=== PATIENT | male | born 1955 | race Caucasian/White ===

== ENCOUNTER 2021-11-25 08:16 | Inpatient (IN) | payer MEDICARE, SELFPAY ==
--- NOTE | ~2021-11-25 | XR_ITS ---
EXAMINATION: XR LUMBOSACRAL SPINE CLINICAL INFORMATION: New onset low back pain. COMPARISON: No similar priors. TECHNIQUE: Three views of the lumbosacral spine. FINDINGS: There are 5 nonrib-bearing lumbar-type vertebral bodies without evidence of acute compression deformities or subluxations. There are mild to moderate degenerative changes in the lower lumbar spine with disc space narrowing, anterior osteophytes and bilateral facet arthropathy leading to some degree of neural foraminal encroachment and central canal stenosis from L4 through S1. Atherosclerotic disease of the abdominal aorta which measures up to 3.4 cm in maximum sagittal dimensions. Nonobstructive bowel gas pattern. Multiple surgical tacks overlie the left abdomen. XR/XR lumbar spine 2-3V IMPRESSION: No acute fractures or malalignment. Mild to moderate lumbar spondylosis which could be further assessed with a nonemergent MRI of the lumbar spine if indicated. The abdominal aorta measures up to 3.3 cm in diameter. In an asymptomatic patient a surveillance image in 3 years is recommended.
--- NOTE | ~2021-11-25 | XR_ITS ---
EXAMINATION: XR CHEST CLINICAL INFORMATION: Status post left thoracentesis COMPARISON: November 25, 2021 TECHNIQUE: AP portable view of the chest was obtained. FINDINGS: There has been some improvement in left base disease but with some residual disease still seen. No pneumothorax is evident. Heart normal size. No evidence of pulmonary edema. XR/XR chest 1V IMPRESSION: Status post left thoracentesis with less fluid identified but left lower lobe disease remaining.
--- NOTE | ~2021-11-25 | XR_ITS ---
EXAMINATION: XR CHEST CLINICAL INFORMATION: Dyspnea COMPARISON: CT angiography chest 10/04/2017, chest radiograph 10/04/2017 TECHNIQUE: 2 views of the chest were obtained. FINDINGS: Moderate blunting of the left costophrenic sulcus is noted. Minimal blunting of the right costophrenic sulcus is visualized. No pneumothoraces identified. Mild-moderate attenuation of the upper lung zone pulmonary parenchyma. 1.5 cm irregular shaped density in projection with the right upper pulmonary lobe and superior margin of the anterior segment of the right third rib without a correlate on the comparison studies. XR/XR chest 2V IMPRESSION: *Moderate left pleural effusion. *Possible trace right pleural effusion. *Irregular shape 1.5 cm density projected over the right upper pulmonary lobe which could represent focal inflammatory changes or neoplasm. Recommend scrutiny to this region on short-term follow-up imaging. ([place] And[place] image saved).
--- NOTE | ~2021-11-25 | CT_ITS ---
EXAMINATION: CT ANGIOGRAM OF THE CHEST WITH AND WITHOUT CONTRAST (CT PULMONARY ANGIOGRAM FOR PE) CLINICAL INFORMATION: Reason for Exam SOB, chest pain, nodule on Xray COMPARISON: October 04, 2017 TECHNIQUE: Prior to contrast administration, noncontrast localization images were obtained. Subsequently, multidetector volumetric imaging was performed from the thoracic inlet to below the diaphragms following the administration of 80 mL Omnipaque 350 intravenous contrast. No contrast reaction reported Sagittal, coronal, and MIP oblique sagittal reformatted images were obtained on the CT workstation, uploaded to PACS, and reviewed. This CT examination was performed using dose optimization techniques as appropriate, variously including the following: *Automated exposure control *Adjustment of mA and/or kV according to patient size (this includes techniques or standardized protocols for targeted exams where dose is matched to indication/reason for exam; i.e. extremities or head) *Use of iterative reconstruction technique Total exam dose-length product 284 mGy-cm FINDINGS: QUALITY OF STUDY/CONTRAST BOLUS: Satisfactory. PULMONARY ARTERIES: No central or segmental pulmonary emboli. THORACIC AORTA: No thoracic aortic dissection is identified the as ascending thoracic aorta is prominent at 4.2 cm in diameter. LUNG: There are changes of centrilobular and paraseptal emphysema in the upper lobes. There is bilateral airspace disease left greater than right which may be related to atelectasis. These findings are new compared to previous study of October 04, 2017. There is some loss of left lung volume. There is some mild diffuse bronchial wall thickening present without evidence of bronchiectasis. No suspicious lung masses are identified. PLEURA: There is a small right pleural effusion and a small to moderate left pleural effusion. These are new since previous study. MEDIASTINUM: Patient has developed moderate pericardial effusion measuring approximately 2 cm in diameter along the anterior right lateral aspects. Heart normal size.. There is a 1.1 cm precarinal lymph node and a 1.1 cm short axis subcarinal lymph node with no other mediastinal or hilar lymphadenopathy appreciated. No evidence of septal bowing or right heart strain. CHEST WALL/AXILLA: No axillary or internal mammary lymphadenopathy. OSSEOUS STRUCTURES: No acute or suspicious osseous abnormality. There are some old healed left-sided rib fractures. UPPER ABDOMEN: Unremarkable. No reflux of contrast into the hepatic veins to suggest elevated right heart pressures. CT/CT angio chest PE protocol IMPRESSION: No evidence of acute pulmonary artery embolus. Multiple prominent ascending thoracic aorta at 4.2 cm in diameter without dissection. Development of a moderate-sized pericardial effusion. Small right pleural effusion and small to moderate left pleural effusion with bibasilar parenchymal disease. VTE: negative
--- NOTE | ~2021-11-25 | US_ITS ---
EXAMINATION: ULTRASOUND-GUIDED LEFT THORACENTESIS CLINICAL INFORMATION: Left pleural effusion COMPARISON: CT angiography of November 25, 2021 TECHNIQUE: Ultrasound-guided left thoracentesis FINDINGS: Informed consent was obtained from the patient prior to the procedure. During this process, the procedure and potential alternatives were explained, along with the intended outcome and benefits. The risks of the procedure, as well as the risk of not doing the procedure, were discussed. The patient was given the opportunity to ask questions regarding the procedure and appeared competent to make medical decisions. A signed consent form which documents this discussion was placed in the medical record. Using sterile technique and ultrasound guidance a 5 [place] Yueh needle was directed using trocar technique into the left pleural space. A total of 600 mL of clear yellow fluid was removed without difficulty. Patient tolerated procedure without abnormality. US/US thoracentesis IMPRESSION: Left thoracentesis with removal of 600 mL of clear mary fluid.
--- NOTE | 2021-11-25 08:19 | ECG_ITS ---
Test Reason : SOB Blood Pressure : / mmHG Vent. Rate : 102 BPM Atrial Rate : 102 BPM P-R Int : 142 ms QRS Dur : 084 ms QT Int : 350 ms P-R-T Axes : 074 038 071 degrees QTc Int : 456 ms Sinus tachycardia Low voltage Nonspecific ST changes Borderline ECG When compared with ECG of 04-OCT-2017 08:14, Low voltage Referred By: Generic ED Physician Electronically Signed By:Jc Hernandez
[2021-11-25 08:29] VITALS: BP 154/92; PULSE 100; RESP 17; TEMP 37; O2SAT 95
[2021-11-25 10:47] LABS: Influenza A PCR NEGATIVE (Negative); Influenza B PCR NEGATIVE (Negative); Resp Syncy Virus RNA Qual PCR NEGATIVE (Negative); SARS COV2 PCR INHOUSE NEGATIVE (Negative)
[2021-11-25 11:24] VITALS: BP 127/78; PULSE 95; RESP 19; TEMP 36.6; O2SAT 96; BMI 29.3
--- NOTE | 2021-11-25 11:29 | ED_ITS ---
HPI - Chest Pain General Chief Complaint: Chest Pain Stated Complaint: Chest pain/SOB Time Seen by Provider: 11/25/21 08:27 Source: patient Mode of arrival: ambulatory Limitations: no limitations History of Present Illness HPI narrative: 66 year old male past medical history significant for hypertension, COPD and patient reports that this week he was told he had cancer by his clinic specialist, he tells me he does not know what kind he comes in today with complaints of chest pain and shortness of breath that awoke him from his sleep at 3:00 a.m this morning. Patient tells me that the chest pain is substernal, nonradiating, severe described as a stabbing sensation that is intermittent. He tells me that when the pain is severe, he gets associated nausea, and diaphoresis. Reports this has never happened to him before. Patient also tells me that he has been having increasing shortness of breath over the past week however, since this morning patient reports that has been worse than ever, he tells me he is unable to ambulate without feeling extremely short of breath and like he is going to pass out. He also reports intermittent night sweats, chills and fevers over the past month. Patient reports no cardiac history. He denies weight loss, abdominal pain, vomiting, constipation, diarrhea, weakness, dizziness, headache, vision changes. MD complaint: chest pain Pertinent past history: other (COPD) Onset (ago): hour(s) (8) Timing of current episode: episodic Prior episodes: No Onset: during rest and awoke with symptoms Pain location: substernal Pain radiation: none Severity: severe Pain scale (0-10): 10 Quality: sharp Relieving factors: nothing Exacerbating factors: nothing Context: other (? New cancer diagnosis by clinic specialist) Associated symptoms: nausea, diaphoresis and other (fevers/chills/night sweats) Treatment prior to arrival: none Related Data Home Medications Medication Instructions Recorded Confirmed acetaminophen 325 mg tablet 650 mg PO Q4H PRN 11/25/21 11/25/21 amlodipine 5 mg tablet 1 tab PO DAILY 11/25/21 11/25/21 hydrochlorothiazide 25 mg tablet 1 tab PO DAILY 11/25/21 11/25/21 ibuprofen 200 mg tablet 400 mg PO Q6H PRN 11/25/21 11/25/21 sumatriptan succinate 50 mg tablet 1 tab PO DAILY MRX1 PRN 11/25/21 11/25/21 trazodone 50 mg tablet 1 tab PO BEDTIME 11/25/21 11/25/21 umeclidinium 62.5 mcg-vilanterol 1 puff INHALATION DAILY 11/25/21 11/25/21 25 mcg/actuation powdr for inhalation (Anoro Ellipta) Allergies Allergy/AdvReac Type Severity Reaction Status Date / Time No Known Allergies Allergy Unverified 08/17/20 15:18 Review of Systems Review of Systems: Constitutional : No Weight loss, + Fever, + Chills, + Fatigue, + Malaise ENT/Mouth : No sore throat, No Rhinorrhea Eyes: No Eye Pain, No Swelling, No Redness Cardiovascular : + Chest Pain, + SOB, + Dyspnea on Exertion, + Orthopnea, No Edema, No Palpitations Respiratory : No Cough, No Sputum, No Wheezing Gastrointestinal : + Nausea, No Vomiting, No Diarrhea, No Constipation, No abdominal Pain, No Hematochezia, No Melena Genitourinary : No Dysuria, No Urinary Frequency, No Hematuria, Musculoskeletal : No joint pain, No Myalgias, No Joint Swelling Skin : No Skin Lesions, No rash Neuro : + Weakness, No Numbness, No Dizziness, No Headache Psych : No Anxiety/Panic, No Depression All other systems reviewed and are negative Yes all other systems are reviewed and are negative [facility] Past Medical History Attestation statement: The following information was validated with the patient. Source: old records reviewed and nursing notes reviewed Medical History COPD (chronic obstructive pulmonary disease) HTN (hypertension) Social History Social History Advance Directives: No Advance Directives Information Provided: Yes Physical Exam Vital Signs: Vital Signs: Last Vital Signs Temp 97.8 F 11/25/21 15:11 Pulse 92 11/25/21 15:11 Resp 21 H 11/25/21 15:11 BP 111/76 11/25/21 15:11 Pulse Ox 94 11/25/21 15:11 BMI result Body Mass Index 29.3 VSS Appearance: Alert.? Oriented X3.? +Patient appears uncomfortable with noted increased work of breathing, patient is noted to be diaphoretic. Head: Normocephalic, atraumatic, no step-offs or deformities Eyes: Pupils equal, round and reactive to light.? ENT: Pharynx normal.? Neck: Normal inspection.? Neck supple.? CVS: + regular rate, rapid rhythm, likely sinus tachycardia. Pulses normal.? Respiratory: + increased work of breathing + diminished lung sounds noted to bilateral lower lobes, worse on the left. Abdomen: Soft and nontender.? Skin: Skin warm and + diaphoretic.? +Palor noted .? Normal skin turgor.? Extremities: + bilateral 3+ pitting edema from the knee down calf ttp. 5/5 strength to bilateral upper and lower extremities Back: No midline tenderness, no C-spine tenderness, full range of motion, no CVA tenderness bilaterally Neuro: Oriented X 3.? No motor deficit.? No sensory deficit. Course Reevaluation(s) Reevaluation #1: Leukocytosis is noted on blood work, troponin 6.8 a 2nd troponin has been ordered for her to 45, BNP just mildly elevated 124. At this time based off patient's laboratory studies, and my physical examination infection is suspected(1257). Blood cultures and a lactic have been ordered. Patient will be started on antibiotics empirically ceftriaxone and azithromycin. I will hold on fluids at this time as patient appears to be fluid overloaded. Time: 12:57 Reevaluation #2: Patient's x-ray significant for bilateral pleural effusions, left greater than right. Also there is an irregularly-shaped density in the right upper pulmonary lobe. CTA negative for VTE/PE it shows a prominent ascending thoracic aorta, without dissection. There is a moderate size pericardial effusion. There is also a small right pleural effusion and a small to moderate left pleural effusion with bibasilar parenchymal disease. Time: 16:20 Reevaluation #3: At this time patient will be admitted to the hospitalist bartolome Montes. Time: 16:20 MDM - Chest Pain MDM Narrative Medical decision making narrative: 1152 66 yo M pmhx COPD, HTN, and rx diagnosis of some type of skin cancer presents to the ED with SOB worse with exertion, and substernal severe intermittent CP described as stabbing which awoke patient from sleep. Current daily smoker 2PPD. No cardiac history. Sleeps with 2L of oxygen via nasal cannula. On exam patient appears uncomfortable, pale, diaphoretic, with increased work of breathing. He is noted to have diminished lung sounds b/l worse on the left. He is noted to have a rapid regular rythem, likely sinus tachycardia. Noted to have 3+ pitting edema from the knee down b/l. No focal neuro deficits. Plan prior to my exam xray and EKG had been done At this time basic labs, trop, BNP, CTA of chest, IV, cardiac monitoring has been ordered at t his time. He will be put on 2L via nasal cannula for comfort. I will also give him ASA and lasix. Medical Records Data Attestation: I reviewed the patient's medical records. Lab Data Attestation: I reviewed the patient's lab results. Result diagrams: 11/25/21 12:41 11/25/21 12:11 Labs: Lab Results 11/25/21 11/25/21 11/25/21 Range/Units 10:01 11:48 11:48 WBC (4.8-10.8) X10*3/uL RBC (4.60-5.80) X10*6/uL Hgb (14.0-18.0) g/dl Hct (42.0-52.0) % MCV (80.0-98.0) fL MCH (27.0-33.0) pg MCHC (31.0-36.0) g/dl RDW (11.0-16.0) % Plt Count (160-400) X10*3/uL MPV (9.4-12.4) fL Immature Gran % (Auto) (0.0-0.4) % Neut % (Auto) (45-73) % Lymph % (Auto) (20-40) % [place] % (Auto) (2-11) % Eos % (Auto) (0-4) % Baso % (Auto) (0-2) % Lymph # (Auto) (1.2-4.9) X10*3/uL [place] # (Auto) (0.1-1.2) X10*3/uL Eos # (Auto) (0.0-0.4) X10*3/uL Baso # (Auto) (0.0-0.2) X10*3/uL Abs Immat Gran (auto) (0.00-0.03) X10*3/uL Absolute Neuts (auto) (2.0-8.3) x10*3/uL Absolute Nucleated RBC (0.0-0.012) X10*3/uL Nucleated RBC % (auto) (0.0-0.2) /100WBC Sodium (135-145) mmol/L Potassium (3.3-5.1) mmol/L Chloride (96-108) mmol/L Carbon Dioxide (22-29) mmol/L Anion Gap (12-20) BUN (9-16) mg/dL Creatinine (0.5-1.4) mg/dL Estim Creat Clear Calc Estimated GFR Random Glucose (60-115) mg/dL Lactic Acid (0.5-2.0) mmol/L Calcium (8.4-10.2) mg/dL Magnesium (1.6-2.6) mg/dL Total Bilirubin (0.0-1.0) mg/dL AST (5-37) U/L ALT (0-40) U/L Alkaline Phosphatase (39-117) U/L Troponin I High Sens 6.8 (<3.5-35.0) ng/L B-Natriuretic Peptide 124 H (<100) pg/mL Total Protein (6.5-8.0) g/dL Albumin (3.5-5.0) g/dL Urine Color Urine Appearance Urine pH (5.0-8.0) Ur Specific [place] (1.005-1.025) Urine Protein (NEG-TRACE) MG/DL Urine Glucose (UA) (NEG) MG/DL Urine Ketones (NEG) MG/DL Urine Blood (NEG) Urine Nitrite (NEG) Ur Leukocyte Esterase (NEG) Urine RBC (0) /HPF Urine WBC (0-4) /HPF Ur Squamous Epith Cells /LPF Urine Bacteria /LPF Urine Mucus /LPF Influenza Type A (PCR) NEGATIVE (Negative) Influenza Type B (PCR) NEGATIVE (Negative) RSV RNA Qual (PCR) NEGATIVE (Negative) SARS-CoV-2 RNA (RT-PCR) NEGATIVE (Negative) 11/25/21 11/25/21 11/25/21 Range/Units 12:11 12:41 12:44 WBC 17.9 H (4.8-10.8) X10*3/uL RBC 4.41 L (4.60-5.80) X10*6/uL Hgb 15.3 (14.0-18.0) g/dl Hct 44.6 (42.0-52.0) % MCV 101.1 H (80.0-98.0) fL MCH 34.7 H (27.0-33.0) pg MCHC 34.3 (31.0-36.0) g/dl RDW 13.3 (11.0-16.0) % Plt Count 411 H (160-400) X10*3/uL MPV 8.8 L (9.4-12.4) fL Immature Gran % (Auto) 0.5 H (0.0-0.4) % Neut % (Auto) 73.5 H (45-73) % Lymph % (Auto) 10.8 L (20-40) % [place] % (Auto) 14.6 H (2-11) % Eos % (Auto) 0.2 (0-4) % Baso % (Auto) 0.4 (0-2) % Lymph # (Auto) 1.9 (1.2-4.9) X10*3/uL [place] # (Auto) 2.6 H (0.1-1.2) X10*3/uL Eos # (Auto) 0.0 (0.0-0.4) X10*3/uL Baso # (Auto) 0.1 (0.0-0.2) X10*3/uL Abs Immat Gran (auto) 0.09 H (0.00-0.03) X10*3/uL Absolute Neuts (auto) 13.2 H (2.0-8.3) x10*3/uL Absolute Nucleated RBC 0.000 (0.0-0.012) X10*3/uL Nucleated RBC % (auto) 0.0 (0.0-0.2) /100WBC Sodium 137 (135-145) mmol/L Potassium 3.3 (3.3-5.1) mmol/L Chloride 101 (96-108) mmol/L Carbon Dioxide 24 (22-29) mmol/L Anion Gap 15 (12-20) BUN 12 (9-16) mg/dL Creatinine 0.75 (0.5-1.4) mg/dL Estim Creat Clear Calc 112.4 Estimated GFR > 60 Random Glucose 144 H (60-115) mg/dL Lactic Acid (0.5-2.0) mmol/L Calcium 9.0 (8.4-10.2) mg/dL Magnesium 2.0 (1.6-2.6) mg/dL Total Bilirubin 0.7 (0.0-1.0) mg/dL AST 19 (5-37) U/L ALT 24 (0-40) U/L Alkaline Phosphatase 79 (39-117) U/L Troponin I High Sens (<3.5-35.0) ng/L B-Natriuretic Peptide (<100) pg/mL Total Protein 6.5 (6.5-8.0) g/dL Albumin 3.6 (3.5-5.0) g/dL Urine Color YELLOW Urine Appearance CLEAR Urine pH 6.0 (5.0-8.0) Ur Specific [place] 1.020 (1.005-1.025) Urine Protein 1+ H (NEG-TRACE) MG/DL Urine Glucose (UA) NEG (NEG) MG/DL Urine Ketones NEG (NEG) MG/DL Urine Blood NEG (NEG) Urine Nitrite NEG (NEG) Ur Leukocyte Esterase NEG (NEG) Urine RBC 0 (0) /HPF Urine WBC 0 (0-4) /HPF Ur Squamous Epith Cells TRACE /LPF Urine Bacteria NONE /LPF Urine Mucus 1+ /LPF Influenza Type A (PCR) (Negative) Influenza Type B (PCR) (Negative) RSV RNA Qual (PCR) (Negative) SARS-CoV-2 RNA (RT-PCR) (Negative) 11/25/21 11/25/21 Range/Units 13:31 13:31 WBC (4.8-10.8) X10*3/uL RBC (4.60-5.80) X10*6/uL Hgb (14.0-18.0) g/dl Hct (42.0-52.0) % MCV (80.0-98.0) fL MCH (27.0-33.0) pg MCHC (31.0-36.0) g/dl RDW (11.0-16.0) % Plt Count (160-400) X10*3/uL MPV (9.4-12.4) fL Immature Gran % (Auto) (0.0-0.4) % Neut % (Auto) (45-73) % Lymph % (Auto) (20-40) % [place] % (Auto) (2-11) % Eos % (Auto) (0-4) % Baso % (Auto) (0-2) % Lymph # (Auto) (1.2-4.9) X10*3/uL [place] # (Auto) (0.1-1.2) X10*3/uL Eos # (Auto) (0.0-0.4) X10*3/uL Baso # (Auto) (0.0-0.2) X10*3/uL Abs Immat Gran (auto) (0.00-0.03) X10*3/uL Absolute Neuts (auto) (2.0-8.3) x10*3/uL Absolute Nucleated RBC (0.0-0.012) X10*3/uL Nucleated RBC % (auto) (0.0-0.2) /100WBC Sodium (135-145) mmol/L Potassium (3.3-5.1) mmol/L Chloride (96-108) mmol/L Carbon Dioxide (22-29) mmol/L Anion Gap (12-20) BUN (9-16) mg/dL Creatinine (0.5-1.4) mg/dL Estim Creat Clear Calc Estimated GFR Random Glucose (60-115) mg/dL Lactic Acid 2.2 H* (0.5-2.0) mmol/L Calcium (8.4-10.2) mg/dL Magnesium (1.6-2.6) mg/dL Total Bilirubin (0.0-1.0) mg/dL AST (5-37) U/L ALT (0-40) U/L Alkaline Phosphatase (39-117) U/L Troponin I High Sens 7.0 (<3.5-35.0) ng/L B-Natriuretic Peptide (<100) pg/mL Total Protein (6.5-8.0) g/dL Albumin (3.5-5.0) g/dL Urine Color Urine Appearance Urine pH (5.0-8.0) Ur Specific [place] (1.005-1.025) Urine Protein (NEG-TRACE) MG/DL Urine Glucose (UA) (NEG) MG/DL Urine Ketones (NEG) MG/DL Urine Blood (NEG) Urine Nitrite (NEG) Ur Leukocyte Esterase (NEG) Urine RBC (0) /HPF Urine WBC (0-4) /HPF Ur Squamous Epith Cells /LPF Urine Bacteria /LPF Urine Mucus /LPF Influenza Type A (PCR) (Negative) Influenza Type B (PCR) (Negative) RSV RNA Qual (PCR) (Negative) SARS-CoV-2 RNA (RT-PCR) (Negative) Imaging Data Chest x-ray: Attestation: I personally reviewed and interpreted this imaging study as follows: Radiologist's impression: FINDINGS: Moderate blunting of the left costophrenic sulcus is noted. Minimal blunting of the right costophrenic sulcus is visualized. No pneumothoraces identified. Mild-moderate attenuation of the upper lung zone pulmonary parenchyma. 1.5 cm irregular shaped density in projection with the right upper pulmonary lobe and superior margin of the anterior segment of the right third rib without a correlate on the comparison studies. XR/XR chest 2V IMPRESSION: *Moderate left pleural effusion. *Possible trace right pleural effusion. *Irregular shape 1.5 cm density projected over the right upper pulmonary lobe which could represent focal inflammatory changes or neoplasm. Recommend scrutiny to this region on short-term follow-up imaging.? ([place] image saved). CTA chest : Attestation: I personally reviewed and interpreted this imaging study as follows: Radiologist's impression: CT/CT angio chest PE protocol IMPRESSION: No evidence of acute pulmonary artery embolus. ? Multiple prominent ascending thoracic aorta at 4.2 cm in diameter without dissection. ? Development of a moderate-sized pericardial effusion. ? Small right pleural effusion and small to moderate left pleural effusion with bibasilar parenchymal disease. ? VTE: negative ECG Data ECG #1: Attestation: I personally reviewed and interpreted this ECG as follows: ECG interpretation date: 11/25/21 ECG interpretation time: 08:25 Prior ECG tracings: available for review Interpretation: Ventricular rate 102, LA normal, QRS normal, QT / QTC normal. EKG shows sinus tachycardia. No ST elevations or inversions that are concerning for ischemia. Per radiology report when compared to EKG from October 04, 2017 there is nonspecific changes of the ST segment in the inferior leads and T-wave inversions in the anterior leads. Critical Care Time Critical Care Time Critical Care Time: No Discharge Plan Discharge Clinical Impression: Chest pain, Acute pericardial effusion, Pleural effusion Patient Disposition: Admitted As Inpatient Prescriptions: No Action acetaminophen 325 mg Tablet 650 mg PO Q4H PRN (Reason: Headache) RF: 0 trazodone 50 mg tablet 1 tab PO BEDTIME RF: 0 sumatriptan succinate 50 mg tablet 1 tab PO DAILY MRX1 PRN (Reason: Headache) RF: 0 amlodipine 5 mg tablet 1 tab PO DAILY RF: 0 ibuprofen 200 mg Tablet 400 mg PO Q6H PRN (Reason: Headache) RF: 0 hydrochlorothiazide 25 mg tablet 1 tab PO DAILY RF: 0 Anoro Ellipta 62.5-25 mcg/actuation blister with device 1 puff inhalation DAILY RF: 0
[2021-11-25] MEDS: Furosemide 20 MG/2 ML VIAL IVPUSH (12:12)
--- NOTE | 2021-11-25 12:13 | PHA.MEDREC ---
Pharmacy Consult ? Medication Reconciliation Pharmacy has completed the medication reconciliation. Spoke with patient in ED and he knew all of his medications
[2021-11-25 12:17] LABS: B Type Natriuretic Peptide 124 pg/mL (<100); Troponin-I High Sensitivity 6.8 ng/L (<3.5-35.0)
[2021-11-25 12:46] LABS: Alanine Aminotransferase 24 U/L (0-40); Albumin Level 3.6 g/dL (3.5-5.0); Alkaline Phosphatase 79 U/L (39-117); Anion Gap 15 (12-20); Aspartate Amino Transferase 19 U/L (5-37); Bilirubin Total 0.7 mg/dL (0.0-1.0); Blood Urea Nitrogen 12 mg/dL (9-16); Carbon Dioxide 24 mmol/L (22-29); Chloride 101 mmol/L (96-108); Creatinine Clr Calc Pharmacy 112.4; Estimated Glomerular Filt Rate > 60; Glucose Random 144 mg/dL (60-115); Potassium 3.3 mmol/L (3.3-5.1); Sodium 137 mmol/L (135-145); Total Protein 6.5 g/dL (6.5-8.0)
[2021-11-25 12:52] LABS: MANUAL DIFF FLAG NO
[2021-11-25 12:54] LABS: Basophils Absolute Auto 0.1 X10*3/uL (0.0-0.2); Basophils Percent Auto 0.4 % (0-2); Eosinophils Percent Auto 0.2 % (0-4); Hematocrit 44.6 % (42.0-52.0); Hemoglobin 15.3 g/dl (14.0-18.0); Imm Gran Abs Auto 0.09 X10*3/uL (0.00-0.03); Imm Gran Pct Auto 0.5 % (0.0-0.4); Lymphocytes Absolute Auto 1.9 X10*3/uL (1.2-4.9); Lymphocytes Percent Auto 10.8 % (20-40); Mean Corpuscular HGB Conc 34.3 g/dl (31.0-36.0); Mean Corpuscular Hemoglobin 34.7 pg (27.0-33.0); Mean Corpuscular Volume 101.1 fL (80.0-98.0); Mean Platelet Volume 8.8 fL (9.4-12.4); Monocytes Absolute Auto 2.6 X10*3/uL (0.1-1.2); Monocytes Percent Auto 14.6 % (2-11); Neutrophils Absolute Auto 13.2 x10*3/uL (2.0-8.3); Neutrophils Percent Auto 73.5 % (45-73); Platelet Count 411 X10*3/uL (160-400); Red Blood Count 4.41 X10*6/uL (4.60-5.80); Red Cell Distribution Width 13.3 % (11.0-16.0); SCAN SMEAR FLAG 1; White Blood Count 17.9 X10*3/uL (4.8-10.8)
[2021-11-25 12:55] LABS: Appearance Urine CLEAR; Color Urine YELLOW; Glucose Urine UA NEG (NEG); Leukocyte Esterase Urine NEG (NEG); Nitrite Urine NEG (NEG); UACC Culture Trigger NO; Urine Blood NEG (NEG); Urine Ketones NEG (NEG); Urine Protein 1+ MG/DL (NEG-TRACE)
[2021-11-25 13:05] LABS: Mucus Urine 1+ /LPF; RBC Urine 0 /HPF (0); Squamous Epithelial Cell Urine TRACE /LPF; WBC Urine 0 /HPF (0-4)
[2021-11-25 13:55] LABS: Lactic Acid 2.2 mmol/L (0.5-2.0)
[2021-11-25] MEDS: iohexoL 350 MG/ML 100 ML INFUS..BTL 70 ML IV (14:08)
[2021-11-25 15:11] VITALS: BP 111/76; PULSE 92; RESP 21; TEMP 36.6; O2SAT 94
[2021-11-25 15:38] LABS: Reflex Lactate? Lactic Acid Added
[2021-11-25] MEDS: cefTRIAXone sodium 1 GM in 0.9 % Sodium Chloride 50 ML IV (15:41)
[2021-11-25] MEDS: Azithromycin 500 MG in 0.9 % Sodium Chloride 250 ML 125 MG IV (16:46)
--- NOTE | 2021-11-25 16:59 | P.HPHOSP_ITS ---
History of Present Illness Date of Service: 11/25/21 Attending physician on admission: Briana Montes Chief Complaint: Chest pain/shortness of breath 66-year-old gentleman with past medical history significant for hypertension, COPD on 2 L of home oxygen at night presented to [facility] due to not feeling good in last several days according to him he has been having headaches for for last several days that works him up from sleep for which he took some [id number] medicine felt better, 4 days ago on Friday he took out his trash lifting a bag on his back and developed significant back pain and was unable to sleep at night cough of for last 1 week he has been noticing chest pain that he felt related to muscle pull therefore did not seek medical attention, last night he developed shortness of breath therefore uses rescue inhaler and Breo Ellipta but that did not help, he has also been feeling cold and hot for last several days and has been coughing and bringing up thick yellow brown phlegm, he denies sick contacts, denies recent history of travel denies weight loss, this morning he woke up at 03:00 due to severe substernal chest pain non radiating, associated with shortness of breath, nausea and diaphoresis that made him very concerned and he came to the emergency room, in the emergency room he underwent extensive testing, BNP 124, troponin x2 are flat, chest x-ray showed moderate left pleural effusion, trace right pleural effusion and an irregular shaped 1.5 cm density over the right upper pulmonary lobe, subsequently underwent a CTA chest shows that showed no evidence of pulmonary embolism, but showed prominent ascending thoracic aorta 4.2 cm in diameter without dissection, moderate-sized pericardial effusion, small to moderate left pleural effusion with bibasilar parenchymal disease and small right pleural effusion, EKG showed normal QTC sinus tachycardia no ST elevation, T-wave inversion in the anterior leads and nonspecific ST changes of inferior leads, on examination patient noted to be tachypneic tachycardic afebrile with stable oxygenation. Review of Systems Review of Systems: General no headache , no dizziness, intermittent fever chills. CVS stabbing anterior chest pain, no palpitation Respiratory productive cough shortness of breath at rest and with activity. Gastrointestinal no nausea no vomiting, no abdominal pain no urinary urgency or frequency Musculoskeletal back pain Skin bump underneath left lid told to be cancer by Dermatology Yes all other systems are reviewed and are negative PMFSH Medical History COPD (chronic obstructive pulmonary disease) HTN (hypertension) Pertinent family history: Both parents are disease patient is not aware of their medical issues, sister is alive and healthy Social History (Updated 11/25/21 @ 17:10 by Briana Montes MD) Alcohol intake: current Cigarette Packs Per Day: 2 Years Smoked: Lifetime Advance Directives: No Advance Directives Information Provided: Yes Meds Allergies Allergy/AdvReac Type Severity Reaction Status Date / Time No Known Allergies Allergy Unverified 08/17/20 15:18 Active Medications: Current Medications Acetaminophen (Acetaminophen 325 Mg Tablet) 650 mg PO Q6H PRN PRN Reason: Pain, Mild (Pain Scale 1-3) Albuterol/Ipratropium (Albuterol/Iprat 2.5/0.5mg 3 Ml Ampul.Neb) 3 ml INHALE RQ6H [facility]ILE [facility]WAKE [facility] Amlodipine Besylate (Amlodipine Besylate 5 Mg Tablet) 5 mg PO DAILY JI; Protocol Enoxaparin Sodium (Enoxaparin Sodium 40 Mg/0.4 Ml Syringe) 40 mg SUBCUT Q24H [facility] Guaifenesin/Dextromethorphan (Guaifenesin Dm 200/20/10 Ml 10 Ml Syrup) 10 ml PO QID [facility] Sodium Chloride (Ns) 1,000 mls @ 100 mls/hr IVCONT .Q10H [facility] Piperacillin Sod/Tazobactam (Sod 3.375 gm/ Sodium Chloride) 50 mls @ 100 mls/hr IV Q6H [facility] Nicotine (Nicotine 21 Mg Patch.Td24) 21 mg TRANSDERMA DAILY [facility] Non-Formulary Medication (Umeclidinium-Vilanterol [Anoro Ellipta]) 1 puff INHALE DAILY [facility] Ondansetron HCl (Ondansetron Hcl 4 Mg/2 Ml Vial) 4 mg IVPUSH Q8H PRN PRN Reason: Nausea and Vomiting Oxycodone HCl (Oxycodone Hcl Immed Release 5 Mg Tablet) 5 mg PO Q6H PRN PRN Reason: Pain, Moderate (Pain Scale 4-6 Pharmacy Consult (Consult Rx Perform Med Rec) 1 each MISCELLANE ONCE PRN PRN Reason: Consult order Sodium Chloride (0.9 % Sodium Chloride Flush 3 Ml Syringe) 3 ml IVFLUSH QSHIFT JI Sumatriptan Succinate (Sumatriptan Succinate 50 Mg Tablet) 50 mg PO DAILY MRX1 PRN PRN Reason: Headache Trazodone HCl (Trazodone Hcl 50 Mg Tablet) 50 mg PO BEDTIME [facility] Home Medications Medication Instructions Recorded Confirmed Last Taken Type acetaminophen 325 mg tablet 650 mg PO Q4H PRN 11/25/21 11/25/21 Unknown History amlodipine 5 mg tablet 1 tab PO DAILY 11/25/21 11/25/21 11/25/21 History hydrochlorothiazide 25 mg tablet 1 tab PO DAILY 11/25/21 11/25/21 11/25/21 History ibuprofen 200 mg tablet 400 mg PO Q6H PRN 11/25/21 11/25/21 Unknown History sumatriptan succinate 50 mg tablet 1 tab PO DAILY MRX1 PRN 11/25/21 11/25/21 Unknown History trazodone 50 mg tablet 1 tab PO BEDTIME 11/25/21 11/25/21 11/24/21 History umeclidinium 62.5 mcg-vilanterol 1 puff INHALATION DAILY 11/25/21 11/25/21 11/24/21 History 25 mcg/actuation powdr for inhalation (Anoro Ellipta) Physical Exam Vital Signs and Narrative: Vital Signs: Last Vital Signs Temp 97.8 F 11/25/21 15:11 Pulse 92 11/25/21 15:11 Resp 21 H 11/25/21 15:11 BP 111/76 11/25/21 15:11 Pulse Ox 94 11/25/21 15:11 BMI result Body Mass Index 29.3 General awake alert x3 in mild distress due to shortness of breath. HEENT pupils equal round reactive to light and accommodation, lower left eyelid with slight bump Neck supple no JVD. CVS regular rate rhythm, Respiratory lungs prolonged expiratory phase, diminished , mild respiratory distress, no wheeze, no rhonchi. Gastrointestinal abdomen soft, nontender, obese, bowel sounds audible,no guarding , no rigidity. Extremities no edema. Neuro nonfocal , no tremor Skin mild hyperemia anterior chest wall with telangiectasia Psych appropriate affect Results Labs CBC and Chem 7: 11/25/21 12:41 11/25/21 12:11 Labs: Laboratory Results - last 24 hr 11/25/21 11/25/21 11/25/21 10:01 11:48 11:48 MCV MCH MCHC RDW Plt Count MPV Immature Gran % (Auto) Neut % (Auto) Lymph % (Auto) [place] % (Auto) Eos % (Auto) Baso % (Auto) Lymph # (Auto) [place] # (Auto) Eos # (Auto) Baso # (Auto) Abs Immat Gran (auto) Absolute Neuts (auto) Absolute Nucleated RBC Nucleated RBC % (auto) Anion Gap Estim Creat Clear Calc Estimated GFR Random Glucose Lactic Acid Calcium Magnesium Total Bilirubin AST ALT Alkaline Phosphatase Troponin I High Sens 6.8 B-Natriuretic Peptide 124 H Total Protein Albumin Urine Color Urine Appearance Urine pH Ur Specific [place] Urine Protein Urine Glucose (UA) Urine Ketones Urine Blood Urine Nitrite Ur Leukocyte Esterase Urine RBC Urine WBC Ur Squamous Epith Cells Urine Bacteria Urine Mucus Influenza Type A (PCR) NEGATIVE Influenza Type B (PCR) NEGATIVE RSV RNA Qual (PCR) NEGATIVE SARS-CoV-2 RNA (RT-PCR) NEGATIVE 11/25/21 11/25/21 11/25/21 12:11 12:41 12:44 MCV 101.1 H MCH 34.7 H MCHC 34.3 RDW 13.3 Plt Count 411 H MPV 8.8 L Immature Gran % (Auto) 0.5 H Neut % (Auto) 73.5 H Lymph % (Auto) 10.8 L [place] % (Auto) 14.6 H Eos % (Auto) 0.2 Baso % (Auto) 0.4 Lymph # (Auto) 1.9 [place] # (Auto) 2.6 H Eos # (Auto) 0.0 Baso # (Auto) 0.1 Abs Immat Gran (auto) 0.09 H Absolute Neuts (auto) 13.2 H Absolute Nucleated RBC 0.000 Nucleated RBC % (auto) 0.0 Anion Gap 15 Estim Creat Clear Calc 112.4 Estimated GFR > 60 Random Glucose 144 H Lactic Acid Calcium 9.0 Magnesium 2.0 Total Bilirubin 0.7 AST 19 ALT 24 Alkaline Phosphatase 79 Troponin I High Sens B-Natriuretic Peptide Total Protein 6.5 Albumin 3.6 Urine Color YELLOW Urine Appearance CLEAR Urine pH 6.0 Ur Specific [place] 1.020 Urine Protein 1+ H Urine Glucose (UA) NEG Urine Ketones NEG Urine Blood NEG Urine Nitrite NEG Ur Leukocyte Esterase NEG Urine RBC 0 Urine WBC 0 Ur Squamous Epith Cells TRACE Urine Bacteria NONE Urine Mucus 1+ Influenza Type A (PCR) Influenza Type B (PCR) RSV RNA Qual (PCR) SARS-CoV-2 RNA (RT-PCR) 11/25/21 11/25/21 13:31 13:31 MCV MCH MCHC RDW Plt Count MPV Immature Gran % (Auto) Neut % (Auto) Lymph % (Auto) [place] % (Auto) Eos % (Auto) Baso % (Auto) Lymph # (Auto) [place] # (Auto) Eos # (Auto) Baso # (Auto) Abs Immat Gran (auto) Absolute Neuts (auto) Absolute Nucleated RBC Nucleated RBC % (auto) Anion Gap Estim Creat Clear Calc Estimated GFR Random Glucose Lactic Acid 2.2 H* Calcium Magnesium Total Bilirubin AST ALT Alkaline Phosphatase Troponin I High Sens 7.0 B-Natriuretic Peptide Total Protein Albumin Urine Color Urine Appearance Urine pH Ur Specific [place] Urine Protein Urine Glucose (UA) Urine Ketones Urine Blood Urine Nitrite Ur Leukocyte Esterase Urine RBC Urine WBC Ur Squamous Epith Cells Urine Bacteria Urine Mucus Influenza Type A (PCR) Influenza Type B (PCR) RSV RNA Qual (PCR) SARS-CoV-2 RNA (RT-PCR) Imaging Radiologist's Impressions: Impressions Chest X-Ray 11/25/21 08:45 IMPRESSION: *Moderate left pleural effusion. *Possible trace right pleural effusion. *Irregular shape 1.5 cm density projected over the right upper pulmonary lobe which could represent focal inflammatory changes or neoplasm. Recommend scrutiny to this region on short-term follow-up imaging. ([place] image saved). Chest CTA 11/25/21 14:32 IMPRESSION: No evidence of acute pulmonary artery embolus. Multiple prominent ascending thoracic aorta at 4.2 cm in diameter without dissection. Development of a moderate-sized pericardial effusion. Small right pleural effusion and small to moderate left pleural effusion with bibasilar parenchymal disease. VTE: negative Assessment and Plan (1) Chest pain: Status: Acute (2) Acute pericardial effusion: Status: Acute (3) Pleural effusion: Status: Acute (4) Chronic respiratory failure: Status: Acute (5) Sepsis: Status: Acute (6) Pneumonia: Status: Acute (7) Tobacco use disorder: Status: Acute (8) Alcohol dependence: Status: Acute 66-year-old gentleman with chronic respiratory failure on 2 L of oxygen at night, history of COPD, hypertension tobacco use disorder alcohol dependence presented to [facility] due to symptoms of fever chills , productive coug h, shortness of breath and chest pain, workup in the emergency room revealed mild to moderate pericardial effusion, left pleural effusion bilateral airspace disease now being admitted for close monitoring and treatment. Chest pain Likely related to underlying COPD, shortness of breath and pericardial effusion Troponin x2 negative, no evidence of CHF, follow echo and cardiology consult Moderate pericardial effusion Question etiology, rule out tumor, obtain echocardiogram and cardiology consulta tion no evidence of cardiac tamponade. Sepsis due to pneumonia Noted to be septic due to tachycardia tachypnea and leukocytosis will place on IV Zosyn for question postobstructive pneumonia Will schedule left thoracocentesis/send fluid for cell count, cytology LDH and protein With lifetime history of smoking high risk for cancer. Mild COPD exacerbation/chronic respiratory failure on 2 L of oxygen at night Will treat with updraft treatment, cough medication and antibiotic, obtain pulmonary consult Hypertension continue home medication Norvasc 5 mg will hold hydrochlorothiazide follow BP closely. Tobacco use disorder counseling done will place on nicotine Alcohol dependence drinks 2 drinks daily no history of prior alcohol withdrawal seizures or delirium tremens will place on CIWA protocol, had [address] on phenobarb protocol with any evidence of withdrawal. DVT prophylaxis with lovenox Code status full code Quality Stroke Does the patient have a stroke diagnosis?: No VTE Prior VTE?: No VTE Risk Level:: Medical - moderate - high VTE Device Contraindication: Treatment Not Indicated VTE Drug Contraindication: N/A - Med Ordered
[2021-11-25 17:16] LABS: ~Lactic Acid-LAB USE ONLY 2.3 mmol/L (0.5-2.0)
[2021-11-25 17:48] LABS: Total Protein 6.5 g/dL (6.5-8.0)
[2021-11-25 18:52] LABS: Reflex Lactate? 2 Y
--- NOTE | 2021-11-25 19:18 | PC.NURSE ---
this RN assumed care at 1900 - multiple meds not given from previous shift, will document against
[2021-11-25] MEDS: 0.9 % Sodium Chloride 1,000 ML 100 ML IVCONT (19:25)
[2021-11-25 19:31] LABS: ~Lactic Acid-LAB USE ONLY 1.2 mmol/L (0.5-2.0)
[2021-11-25] MEDS: Enoxaparin Sodium 40 MG/0.4 ML SYRINGE SUBCUT (19:37)
[2021-11-25] MEDS: Nicotine 21 MG PATCH.TD24 TRANSDERMA (19:37)
[2021-11-25] MEDS: Piperacillin Sodium/Tazobactam 3.375 GM in 0.9 % Sodium Chloride 50 ML IV (19:40)
[2021-11-25 19:41] VITALS: PULSE 86; RESP 21; O2SAT 93
--- NOTE | 2021-11-25 20:42 | PC.NURSE ---
assumed care of pt at 1900 - multiple medications not administered d/t high pt volume, low staffing ratio. medications administered per JAN. pt irritable, c/o discomfort. aware that he is awaiting inpatient bed assignment. pt provided ravinder krause..
[2021-11-25] MEDS: traZODone HCL 50 MG TABLET PO (20:51)
[2021-11-25] MEDS: guaiFENesin DM 200/20/10 ML 10 ML SYRUP PO (20:51)
[2021-11-25] MEDS: Albuterol/Iprat 2.5/0.5MG 3 ML AMPUL.NEB INHALE (20:58)
[2021-11-25 20:59] VITALS: PULSE 85; RESP 20; O2SAT 91
[2021-11-25 22:41] VITALS: BP 114/69; PULSE 84; RESP 32; TEMP 36.6; O2SAT 92
[2021-11-26] VITALS (11 sets, daily range): BP systolic 94–122; BP diastolic 43–81; PULSE 71–87; RESP 16–24; TEMP 36.6–37.4; O2SAT 92–97
--- NOTE | 2021-11-26 00:22 | PC.NURSE ---
pt a&o, no increase sob, no chest pain at this time. pt repositioned. Assisted with urinal at the bedside. 400 urine output. pt on bedside monitor.
[2021-11-26] MEDS: 0.9 % Sodium Chloride 1,000 ML 100 ML IVCONT (04:28)
--- NOTE | 2021-11-26 04:29 | PC.NURSE ---
no sign of distress. pt resting. medicated per mar
[2021-11-26] MEDS: Piperacillin Sodium/Tazobactam 3.375 GM in 0.9 % Sodium Chloride 50 ML IV ×5 (05:08→23:56)
--- NOTE | 2021-11-26 08:00 | CA_ITS ---
Transthoracic Echocardiogram Patient (Last, First, Middle): Nader Shin J Gender: Male Date of : 1955 Age: 66 Procedure Date: 11/26/2021 Procedure Type: Transthoracic Echocardiogram Location: ER Height: 177.8 cm Weight: 92.53 kg BSA: 2.10 m2 Heart Rate: bpm BP: 106 / 61 mmHg Gas Usage Meter Clerk: DELONTE Referring MD: Briana Montes MD Symptoms: pericardial effusion Study Quality: Fair Conclusions: - Normal left ventricular size, thickness, systolic function, and wall motion. - There is septal bounce consistent with constrictive physiology. - Normal right ventricular cavity size and systolic function. - Both atria are normal in size. - There is mild dilatation of the ascending aorta measuring 4.00 cm. The visualized portions of the pulmonary artery and branches are normal. - There is a small pericardial effusion. There are no definitive echocardiographic findings of tamponade physiology. There are echocardiographic findings consistent with effusive-constrictive physiology. Findings Left Ventricle Normal left ventricular size, thickness, systolic function, and wall motion. The visually estimated ejection fraction is between 60-65%. There is no evidence of regional wall motion abnormalities. There is septal bounce consistent with constrictive physiology. Diastolic function is indeterminate on the basis of available data. E/E prime ratio is between 8 and 15 consistent with indeterminate filling pressures. Right Ventricle Normal right ventricular cavity size and systolic function. Atria Both atria are normal in size. Aortic Valve There is a normal trileaflet aortic valve. There is mild calcification of the aortic valve. There is no aortic valve stenosis. There is no aortic valve regurgitation. Mitral Valve Normal mitral valve structure and function. There is no mitral valve regurgitation. There is no mitral valve stenosis. Pulmonic Valve Normal pulmonic valve structure and function. There is trace pulmonic valve regurgitation. Tricuspid Valve Normal tricuspid valve structure and function. There is trace tricuspid valve regurgitation. Moderately elevated right atrial pressure. Mild pulmonary hypertension is present. Great Vessels There is mild dilatation of the ascending aorta measuring 4.00 cm. The visualized portions of the pulmonary artery and branches are normal. Venous The inferior vena cava is dilated and collapses greater than 50% with inspiration. Pericardium/Pleural There is a small pericardial effusion. There are no definitive echocardiographic findings of tamponade physiology. There are echocardiographic findings consistent with effusive-constrictive physiology. Prior Study Comparison No prior study available for comparison. Measurements 2D Linear Measurements IVSd: 1.06 0.6-0.9/0.6-1.0 cm LVIDd: 4.46 3.9-5.3/4.2-5.9 cm LVIDd Index: 2.12 2.4-3.2/2.2-3.1 cm/m2 LVIDs: 3.03 2.0-3.6 cm LVPWd: 0.78 0.7-1.1 cm Ao Root: 3.60 2.1-3.5 cm LA Diam: 3.70 2.7-3.8/3.0-4.0 cm LAIDs Index: 1.76 1.5-2.3 cm/m2 LV Mass: 168.28 67-162/88-224 g LV Mass Index: 80.13 43-95/49-115 g/m2 LVOT Diam: 2.40 3.0+(-)1.3 cm 2D Systolic Function EF 4C: 54.20 >55% EF 2C: 67.70 >55% EF BiP: 61.50 >55% Mitral Valve MV Pk E: 1.04 MV PK A: 0.51 MV Decel Time: 186.00 E/A: 2.00 E'Lateral: 6.96 E'Medial: 9.57 E/E' Med: 10.90 E/E' Lat: 14.90 PHT: 55.00 MVA PHT: 4.00 Decel [place]: 5.56 Aortic Valve AoV Pk Abhijit: 1.74 AoV Mn Abhijit: 1.19 AoV VTI: 0.28 AoV Pk Grad: 12.00 Aov Mn Grad: 7.00 LANA Cont.VTI: 3.16 LVOT LVOT Pk Abhijit: 1.08 LVOT Mn Abhijit: 0.74 LVOT VTI: 0.20 LVOT Pk Grad: 5.00 LVOT Mn Grad: 3.00 LVOT Diam: 2.40 LVOT Area: 4.52 Diastolic Function MV Pk E: 1.04 MV Pk A: 0.51 E/A: 2.00 E'Medial: 9.57 E/E' Med: 10.90 E' Laterial: 6.96 E/E' Lat: 14.90 Right Ventricle TAPSE (mm): 1.60 TVS' Abhijit: 11.50 Tricuspid Valve TR Pk Abhijit: 2.55 TR Pk Grad: 26.00 RA Press: 15.00 RVSP: 41.00 Great Vessels Aorta Ao Root-2D: 3.60 2.0-3.7 cm Ao Asc: 4.00 2.1-3.4 cm Updated in Other Vendor System with Status of Final Jc Hernandez MD electronically signed on 11/26/2021 11:10:58 AM with status of Final
[2021-11-26] MEDS: amLODIPine Besylate 5 MG TABLET PO (08:38)
[2021-11-26] MEDS: guaiFENesin DM 200/20/10 ML 10 ML SYRUP PO ×4 (08:38→21:01)
[2021-11-26] MEDS: Nicotine 21 MG PATCH.TD24 TRANSDERMA (08:39)
[2021-11-26] MEDS: oxyCODONE HCl Immed Release 5 MG TABLET PO (08:39)
[2021-11-26] MEDS: Acetaminophen 325 MG TABLET 650 MG PO (08:39)
[2021-11-26] MEDS: Albuterol/Iprat 2.5/0.5MG 3 ML AMPUL.NEB INHALE ×2 (08:44→20:46)
--- NOTE | 2021-11-26 10:20 | P.CONCA_ITS ---
History of Present Illness History of Present Illness Date of Service: 11/26/21 Requesting physician: Parveen Hussein Chief complaint: chest pain, pericardial effusion Narrative: 66-year-old gentleman with background history of tobacco abuse, alcohol abuse and recent viral illness who is presenting with shortness of breath. He has COPD exacerbation. He had CT angiogram of his chest which showed no evidence of pulmonary embolism but did show small right pleural ef fusion and small to moderate left pleural effusion. Was also moderate-sized pericardial effusion noticed. Ascending aorta was noted to be 4.2 cm. We are asked to comment about his pericardial effusion. He also complained of some chest pain. He is saying he had a strain like sensation in his chest. This has resolved at this stage. He is unable to give more history about the chest pain. He said he had a viral illness a month ago when he had poor appetite and enlarged lymph nodes in his neck. He is wheezing on examination and still quite short of breath. It appears his breathing is not good at baseline and he can only ambulate short distances. COUNT INCLUDES THE [facility] Past Medical History Medical History COPD (chronic obstructive pulmonary disease) HTN (hypertension) Social History Social History (Updated 11/25/21 @ 17:10 by Briana Montes MD) Alcohol intake: current Patient Tobacco Use Status: Current everyday Tobacco user Cigarette Packs Per Day: 2 Years Smoked: Lifetime Use of substances other than those prescribed or required for medical reasons: No Advance Directives: No Advance Directives Information Provided: Yes Meds Allergies Allergy/AdvReac Type Severity Reaction Status Date / Time No Known Allergies Allergy Unverified 08/17/20 15:18 Active Medications: Current Medications Acetaminophen (Acetaminophen 325 Mg Tablet) 650 mg PO Q6H PRN PRN Reason: Pain, Mild (Pain Scale 1-3) Last Admin: 11/26/21 08:39 Dose: 650 mg Documented by: Albuterol/Ipratropium (Albuterol/Iprat 2.5/0.5mg 3 Ml Ampul.Neb) 3 ml INHALE RQ6H WHILE AWAKE JI Last Admin: 11/26/21 08:44 Dose: 3 ml Documented by: Amlodipine Besylate (Amlodipine Besylate 5 Mg Tablet) 5 mg PO DAILY JI; Pro tocol Last Admin: 11/26/21 08:38 Dose: 5 mg Documented by: Enoxaparin Sodium (Enoxaparin Sodium 40 Mg/0.4 Ml Syringe) 40 mg SUBCUT Q24H [facility] Last Admin: 11/25/21 19:37 Dose: 40 mg Documented by: Guaifenesin/Dextromethorphan (Guaifenesin Dm 200/20/10 Ml 10 Ml Syrup) 10 ml PO QID [facility] Last Admin: 11/26/21 08:38 Dose: 10 ml Documented by: Sodium Chloride (Ns) 1,000 mls @ 100 mls/hr IVCONT .Q10H [facility] Last Admin: 11/26/21 04:28 Dose: 100 mls/hr Documented by: Piperacillin Sod/Tazobactam (Sod 3.375 gm/ Sodium Chloride) 50 mls @ 100 mls/hr IV Q6H [facility] Last Admin: 11/26/21 05:08 Dose: 100 mls/hr Documented by: Nicotine (Nicotine 21 Mg Patch.Td24) 21 mg TRANSDERMA DAILY [facility] Last Admin: 11/26/21 08:39 Dose: 21 mg Documented by: Non-Formulary Medication (Umeclidinium-Vilanterol [Anoro Ellipta]) 1 puff INHALE DAILY [facility] Ondansetron HCl (Ondansetron Hcl 4 Mg/2 Ml Vial) 4 mg IVPUSH Q8H PRN PRN Reason: Nausea and Vomiting Oxycodone HCl (Oxycodone Hcl Immed Release 5 Mg Tablet) 5 mg PO Q6H PRN PRN Reason: Pain, Moderate (Pain Scale 4-6 Last Admin: 11/26/21 08:39 Dose: 5 mg Documented by: Pharmacy Consult (Consult Rx Perform Med Rec) 1 each MISCELLANE ONCE PRN PRN Reason: Consult order Sodium Chloride (0.9 % Sodium Chloride Flush 3 Ml Syringe) 3 ml IVFLUSH QSHIFT [facility] Last Admin: 11/26/21 08:29 Dose: Not Given Documented by: Sumatriptan Succinate (Sumatriptan Succinate 50 Mg Tablet) 50 mg PO DAILY MRX1 PRN PRN Reason: Headache Tiotropium [place] (Tiotropium [place] 18 Mcg Cap.W.Dev) 1 puff INHALE RDAILY [facility] Last Admin: 11/26/21 08:16 Dose: Not Given Documented by: Trazodone HCl (Trazodone Hcl 50 Mg Tablet) 50 mg PO BEDTIME JI Last Admin: 11/25/21 20:51 Dose: 50 mg Documented by: Home Medications Medication Instructions Recorded Confirmed Last Taken Type acetaminophen 325 mg tablet 650 mg PO Q4H PRN 11/25/21 11/25/21 Unknown History amlodipine 5 mg tablet 1 tab PO DAILY 11/25/21 11/25/21 11/25/21 History hydrochlorothiazide 25 mg tablet 1 tab PO DAILY 11/25/21 11/25/21 11/25/21 History ibuprofen 200 mg tablet 400 mg PO Q6H PRN 11/25/21 11/25/21 Unknown History sumatriptan succinate 50 mg tablet 1 tab PO DAILY MRX1 PRN 11/25/21 11/25/21 Unknown History trazodone 50 mg tablet 1 tab PO BEDTIME 11/25/21 11/25/21 11/24/21 History umeclidinium 62.5 mcg-vilanterol 1 puff INHALATION DAILY 11/25/21 11/25/21 11/24/21 History 25 mcg/actuation powdr for inhalation (Anoro Ellipta) Physical Exam Vital Signs: Vital Signs: Last Vital Signs Temp 97.8 F 11/26/21 09:10 Pulse 79 11/26/21 09:10 Resp 19 11/26/21 09:10 BP 104/62 11/26/21 09:10 Pulse Ox 95 11/26/21 09:10 BMI result Body Mass Index 29.3 GENERAL APPEARANCE: Short of breath. NECK: no carotid bruit, no jugular venous distention. SKIN: no suspicious lesions, warm and dry. HEART: no murmurs, regular rate and rhythm. LUNGS: Bilateral expiratory wheezes. ABDOMEN: soft, nontender. EXTREMITIES: no edema. PERIPHERAL PULSES: equal. NEUROLOGIC: No gross deficits, AAO X 3 Objective Labs and Meds Result diagrams: 11/25/21 12:41 11/25/21 12:11 Lab results: Laboratory Results - last 24 hr 11/25/21 11/25/21 11/25/21 10:01 11:48 11:48 WBC RBC Hgb Hct MCV MCH MCHC RDW Plt Count MPV Immature Gran % (Auto) Neut % (Auto) Lymph % (Auto) [place] % (Auto) Eos % (Auto) Baso % (Auto) Lymph # (Auto) [place] # (Auto) Eos # (Auto) Baso # (Auto) Abs Immat Gran (auto) Absolute Neuts (auto) Absolute Nucleated RBC Nucleated RBC % (auto) Sodium Potassium Chloride Carbon Dioxide Anion Gap BUN Creatinine Estim Creat Clear Calc Estimated GFR Random Glucose Lactic Acid Lactic Acid F/U @ 2Hr Lactic Acid F/U @ 4Hr Calcium Magnesium Total Bilirubin AST ALT Alkaline Phosphatase Troponin I High Sens 6.8 B-Natriuretic Peptide 124 H Total Protein Albumin Urine Color Urine Appearance Urine pH Ur Specific [place] Urine Protein Urine Glucose (UA) Urine Ketones Urine Blood Urine Nitrite Ur Leukocyte Esterase Urine RBC Urine WBC Ur Squamous Epith Cells Urine Bacteria Urine Mucus Influenza Type A (PCR) NEGATIVE Influenza Type B (PCR) NEGATIVE RSV RNA Qual (PCR) NEGATIVE SARS-CoV-2 RNA (RT-PCR) NEGATIVE 11/25/21 11/25/21 11/25/21 12:11 12:41 12:44 WBC 17.9 H RBC 4.41 L Hgb 15.3 Hct 44.6 MCV 101.1 H MCH 34.7 H MCHC 34.3 RDW 13.3 Plt Count 411 H MPV 8.8 L Immature Gran % (Auto) 0.5 H Neut % (Auto) 73.5 H Lymph % (Auto) 10.8 L [place] % (Auto) 14.6 H Eos % (Auto) 0.2 Baso % (Auto) 0.4 Lymph # (Auto) 1.9 [place] # (Auto) 2.6 H Eos # (Auto) 0.0 Baso # (Auto) 0.1 Abs Immat Gran (auto) 0.09 H Absolute Neuts (auto) 13.2 H Absolute Nucleated RBC 0.000 Nucleated RBC % (auto) 0.0 Sodium 137 Potassium 3.3 Chloride 101 Carbon Dioxide 24 Anion Gap 15 BUN 12 Creatinine 0.75 Estim Creat Clear Calc 112.4 Estimated GFR > 60 Random Glucose 144 H Lactic Acid Lactic Acid F/U @ 2Hr Lactic Acid F/U @ 4Hr Calcium 9.0 Magnesium 2.0 Total Bilirubin 0.7 AST 19 ALT 24 Alkaline Phosphatase 79 Troponin I High Sens B-Natriuretic Peptide Total Protein 6.5 Albumin 3.6 Urine Color YELLOW Urine Appearance CLEAR Urine pH 6.0 Ur Specific [place] 1.020 Urine Protein 1+ H Urine Glucose (UA) NEG Urine Ketones NEG Urine Blood NEG Urine Nitrite NEG Ur Leukocyte Esterase NEG Urine RBC 0 Urine WBC 0 Ur Squamous Epith Cells TRACE Urine Bacteria NONE Urine Mucus 1+ Influenza Type A (PCR) Influenza Type B (PCR) RSV RNA Qual (PCR) SARS-CoV-2 RNA (RT-PCR) 11/25/21 11/25/21 11/25/21 13:31 13:31 16:50 WBC RBC Hgb Hct MCV MCH MCHC RDW Plt Count MPV Immature Gran % (Auto) Neut % (Auto) Lymph % (Auto) [place] % (Auto) Eos % (Auto) Baso % (Auto) Lymph # (Auto) [place] # (Auto) Eos # (Auto) Baso # (Auto) Abs Immat Gran (auto) Absolute Neuts (auto) Absolute Nucleated RBC Nucleated RBC % (auto) Sodium Potassium Chloride Carbon Dioxide Anion Gap BUN Creatinine Estim Creat Clear Calc Estimated GFR Random Glucose Lactic Acid 2.2 H* Lactic Acid F/U @ 2Hr 2.3 H* Lactic Acid F/U @ 4Hr Calcium Magnesium Total Bilirubin AST ALT Alkaline Phosphatase Troponin I High Sens 7.0 B-Natriuretic Peptide Total Protein Albumin Urine Color Urine Appearance Urine pH Ur Specific [place] Urine Protein Urine Glucose (UA) Urine Ketones Urine Blood Urine Nitrite Ur Leukocyte Esterase Urine RBC Urine WBC Ur Squamous Epith Cells Urine Bacteria Urine Mucus Influenza Type A (PCR) Influenza Type B (PCR) RSV RNA Qual (PCR) SARS-CoV-2 RNA (RT-PCR) 11/25/21 11/25/21 17:09 19:14 WBC RBC Hgb Hct MCV MCH MCHC RDW Plt Count MPV Immature Gran % (Auto) Neut % (Auto) Lymph % (Auto) [place] % (Auto) Eos % (Auto) Baso % (Auto) Lymph # (Auto) [place] # (Auto) Eos # (Auto) Baso # (Auto) Abs Immat Gran (auto) Absolute Neuts (auto) Absolute Nucleated RBC Nucleated RBC % (auto) Sodium Potassium Chloride Carbon Dioxide Anion Gap BUN Creatinine Estim Creat Clear Calc Estimated GFR Random Glucose Lactic Acid Lactic Acid F/U @ 2Hr Lactic Acid F/U @ 4Hr 1.2 Calcium Magnesium Total Bilirubin AST ALT Alkaline Phosphatase Troponin I High Sens B-Natriuretic Peptide Total Protein 6.5 Albumin Urine Color Urine Appearance Urine pH Ur Specific [place] Urine Protein Urine Glucose (UA) Urine Ketones Urine Blood Urine Nitrite Ur Leukocyte Esterase Urine RBC Urine WBC Ur Squamous Epith Cells Urine Bacteria Urine Mucus Influenza Type A (PCR) Influenza Type B (PCR) RSV RNA Qual (PCR) SARS-CoV-2 RNA (RT-PCR) Imaging Radiologist's impression: Impressions Chest CTA 11/25/21 14:32 IMPRESSION: No evidence of acute pulmonary artery embolus. Multiple prominent ascending thoracic aorta at 4.2 cm in diameter without dissection. Development of a moderate-sized pericardial effusion. Small right pleural effusion and small to moderate left pleural effusion with bibasilar parenchymal disease. VTE: negative Assessment and Plan (1) Alcohol dependence: Status: Acute (2) Tobacco use disorder: Status: Acute (3) Chest pain: Status: Acute (4) Acute pericardial effusion: Status: Acute 66-year-old gentleman who is presenting with shortness of breath. Clinically he has wheezing on examination and has history of COPD with active tobacco abuse. I think likely reason for shortness of breath is COPD exacerbation. He has been incidentally found to have bilateral pleural effusions as well as moderate pericardial effusion by CT scan. We will check echocardiogram to assess the size as well as clinical significance of the pericardial effusion. Clinically he is hemodynamically stable and is not in tamponade. I think he should be treated with steroids for his COPD. We will review the echocardiogram and give further recommendations. Thank you for allowing me to participate in the care of your patient. Please feel free to contact me if you have any questions. Procedures Date of Service Date of Service: 11/26/21
[2021-11-26 10:51] LABS: Basophils Absolute Auto 0.1 X10*3/uL (0.0-0.2); Basophils Percent Auto 0.6 % (0-2); Eosinophils Absolute Auto 0.1 X10*3/uL (0.0-0.4); Eosinophils Percent Auto 0.8 % (0-4); Hematocrit 38.1 % (42.0-52.0); Imm Gran Abs Auto 0.05 X10*3/uL (0.00-0.03); Imm Gran Pct Auto 0.4 % (0.0-0.4); Lymphocytes Absolute Auto 1.7 X10*3/uL (1.2-4.9); Lymphocytes Percent Auto 13.6 % (20-40); MANUAL DIFF FLAG SCAN; Mean Corpuscular HGB Conc 34.1 g/dl (31.0-36.0); Mean Corpuscular Hemoglobin 34.9 pg (27.0-33.0); Mean Corpuscular Volume 102.4 fL (80.0-98.0); Monocytes Absolute Auto 1.6 X10*3/uL (0.1-1.2); Monocytes Percent Auto 12.4 % (2-11); Neutrophils Absolute Auto 9.2 x10*3/uL (2.0-8.3); Neutrophils Percent Auto 72.2 % (45-73); Platelet Count 329 X10*3/uL (160-400); Red Blood Count 3.72 X10*6/uL (4.60-5.80); Red Cell Distribution Width 13.5 % (11.0-16.0); SCAN SMEAR FLAG 1; White Blood Count 12.8 X10*3/uL (4.8-10.8)
[2021-11-26 10:55] LABS: INTERNATIONAL NORM RATIO 1.3 (0.9-1.1); Prothrombin Time 15.3 SEC (9.9-13.0)
[2021-11-26 10:58] LABS: Partial Thromboplastin Time 33.4 SEC (24.1-38.0)
[2021-11-26 11:06] LABS: Anion Gap 10 (12-20); Blood Urea Nitrogen 11 mg/dL (9-16); Calcium 8.3 mg/dL (8.4-10.2); Carbon Dioxide 30 mmol/L (22-29); Chloride 103 mmol/L (96-108); Creatinine Clr Calc Pharmacy 120.4; Estimated Glomerular Filt Rate > 60; Glucose Random 112 mg/dL (60-115); Potassium 3.3 mmol/L (3.3-5.1); Sodium 140 mmol/L (135-145)
[2021-11-26 11:14] LABS: SLIDE REVIEW VERIFIED
--- NOTE | 2021-11-26 11:27 | HO.PM.IMPN ---
Subjective Subjective Date of Service: 11/26/21 Interval History: seen and examined reports shortness of breath with min exertion denies any chest pain denies any abdominal pain Review of Systems negative except HPI Physical Exam Vital Signs: Vital Signs: Last Vital Signs Temp 97.8 F 11/26/21 09:10 Pulse 77 11/26/21 11:25 Resp 20 11/26/21 11:25 BP 108/81 11/26/21 11:25 Pulse Ox 97 11/26/21 11:25 BMI result Body Mass Index 29.3 Const: Other: General awake alert, appears comfortablea t rest HEENT pupils equal round reactive to light and accommodation, lower left eyelid with slight bump Neck supple no JVD. CVS? regular rate rhythm, Respiratory dim sounds, no distress at rest Gastrointestinal abdomen soft, nontender, obese, bowel sounds audible,no guarding , no rigidity. Extremities no edema. Neuro nonfocal , no tremor Skin mild hyperemia anterior chest wall with telangiectasia Psych appropriate affect Objective Data Active Medications Acetaminophen (Acetaminophen 325 Mg Tablet) 650 mg PO Q6H PRN PRN Reason: Pain, Mild (Pain Scale 1-3) Last Admin: 11/26/21 08:39 Dose: 650 mg Documented by: DMITRY Albuterol/Ipratropium (Albuterol/Iprat 2.5/0.5mg 3 Ml Ampul.Neb) 3 ml INHALE RQ6H WHILE AWAKE [facility] Last Admin: 11/26/21 08:44 Dose: 3 ml Documented by: KISHAN Amlodipine Besylate (Amlodipine Besylate 5 Mg Tablet) 5 mg PO DAILY [facility]; Protocol Last Admin: 11/26/21 08:38 Dose: 5 mg Documented by: DMITRY Colchicine (Colchicine 0.6 Mg Tablet) 0.6 mg PO BID [facility] Enoxaparin Sodium (Enoxaparin Sodium 40 Mg/0.4 Ml Syringe) 40 mg SUBCUT Q24H [facility] Last Admin: 11/25/21 19:37 Dose: 40 mg Documented by: LUIS Guaifenesin/Dextromethorphan (Guaifenesin Dm 200/20/10 Ml 10 Ml Syrup) 10 ml PO QID [facility] Last Admin: 11/26/21 08:38 Dose: 10 ml Documented by: DMITRY Sodium Chloride (Ns) 1,000 mls @ 100 mls/hr IVCONT .Q10H [facility] Last Admin: 11/26/21 04:28 Dose: 100 mls/hr Documented by: JIHAN Piperacillin Sod/Tazobactam (Sod 3.375 gm/ Sodium Chloride) 50 mls @ 100 mls/hr IV Q6H [facility] Last Admin: 11/26/21 11:21 Dose: 100 mls/hr Documented by: DMITRY Nicotine (Nicotine 21 Mg Patch.Td24) 21 mg TRANSDERMA DAILY [facility] Last Admin: 11/26/21 08:39 Dose: 21 mg Documented by: DMITRY Non-Formulary Medication (Umeclidinium-Vilanterol [Anoro Ellipta]) 1 puff INHALE DAILY [facility] Ondansetron HCl (Ondansetron Hcl 4 Mg/2 Ml Vial) 4 mg IVPUSH Q8H PRN PRN Reason: Nausea and Vomiting Oxycodone HCl (Oxycodone Hcl Immed Release 5 Mg Tablet) 5 mg PO Q6H PRN PRN Reason: Pain, Moderate (Pain Scale 4-6 Last Admin: 11/26/21 08:39 Dose: 5 mg Documented by: DMITRY Pharmacy Consult (Consult Rx Perform Med Rec) 1 each MISCELLANE ONCE PRN PRN Reason: Consult order Sodium Chloride (0.9 % Sodium Chloride Flush 3 Ml Syringe) 3 ml IVFLUSH QSHIFT [facility] Last Admin: 11/26/21 08:29 Dose: Not Given Documented by: DMITRY Non-Admin Reason: IV Running Sumatriptan Succinate (Sumatriptan Succinate 50 Mg Tablet) 50 mg PO DAILY MRX1 PRN PRN Reason: Headache Tiotropium [place] (Tiotropium [place] 18 Mcg Cap.W.Dev) 1 puff INHALE RDAILY [facility] Last Admin: 11/26/21 08:16 Dose: Not Given Documented by: KISHAN Non-Admin Reason: Med Not Available Trazodone HCl (Trazodone Hcl 50 Mg Tablet) 50 mg PO BEDTIME [facility] Last Admin: 11/25/21 20:51 Dose: 50 mg Documented by: LUIS Labs CBC & Chem 7: 11/26/21 10:36 11/26/21 10:36 Labs: Laboratory Results - last 24 hr 11/25/21 11/25/2121 11:48 11:48 12:11 MCV MCH MCHC RDW Plt Count MPV Immature Gran % (Auto) Neut % (Auto) Lymph % (Auto) [place] % (Auto) Eos % (Auto) Baso % (Auto) Lymph # (Auto) [place] # (Auto) Eos # (Auto) Baso # (Auto) Abs Immat Gran (auto) Absolute Neuts (auto) Absolute Nucleated RBC Nucleated RBC % (auto) Smear Tech's Comments PT INR APTT Anion Gap 15 Estim Creat Clear Calc 112.4 Estimated GFR > 60 Random Glucose 144 H Lactic Acid Lactic Acid F/U @ 2Hr Lactic Acid F/U @ 4Hr Calcium 9.0 Magnesium 2.0 Total Bilirubin 0.7 AST 19 ALT 24 Alkaline Phosphatase 79 Troponin I High Sens 6.8 B-Natriuretic Peptide 124 H Total Protein 6.5 Albumin 3.6 Urine Color Urine Appearance Urine pH Ur Specific [place] Urine Protein Urine Glucose (UA) Urine Ketones Urine Blood Urine Nitrite Ur Leukocyte Esterase Urine RBC Urine WBC Ur Squamous Epith Cells Urine Bacteria Urine Mucus 11/25/21 11/25/21 11/25/21 12:41 12:44 13:31 MCV 101.1 H MCH 34.7 H MCHC 34.3 RDW 13.3 Plt Count 411 H MPV 8.8 L Immature Gran % (Auto) 0.5 H Neut % (Auto) 73.5 H Lymph % (Auto) 10.8 L [place] % (Auto) 14.6 H Eos % (Auto) 0.2 Baso % (Auto) 0.4 Lymph # (Auto) 1.9 [place] # (Auto) 2.6 H Eos # (Auto) 0.0 Baso # (Auto) 0.1 Abs Immat Gran (auto) 0.09 H Absolute Neuts (auto) 13.2 H Absolute Nucleated RBC 0.000 Nucleated RBC % (auto) 0.0 Smear Tech's Comments PT INR APTT Anion Gap Estim Creat Clear Calc Estimated GFR Random Glucose Lactic Acid Lactic Acid F/U @ 2Hr Lactic Acid F/U @ 4Hr Calcium Magnesium Total Bilirubin AST ALT Alkaline Phosphatase Troponin I High Sens 7.0 B-Natriuretic Peptide Total Protein Albumin Urine Color YELLOW Urine Appearance CLEAR Urine pH 6.0 Ur Specific [place] 1.020 Urine Protein 1+ H Urine Glucose (UA) NEG Urine Ketones NEG Urine Blood NEG Urine Nitrite NEG Ur Leukocyte Esterase NEG Urine RBC 0 Urine WBC 0 Ur Squamous Epith Cells TRACE Urine Bacteria NONE Urine Mucus 1+ 11/25/21 11/25/21 11/25/21 13:31 16:50 17:09 MCV MCH MCHC RDW Plt Count MPV Immature Gran % (Auto) Neut % (Auto) Lymph % (Auto) [place] % (Auto) Eos % (Auto) Baso % (Auto) Lymph # (Auto) [place] # (Auto) Eos # (Auto) Baso # (Auto) Abs Immat Gran (auto) Absolute Neuts (auto) Absolute Nucleated RBC Nucleated RBC % (auto) Smear Tech's Comments PT INR APTT Anion Gap Estim Creat Clear Calc Estimated GFR Random Glucose Lactic Acid 2.2 H* Lactic Acid F/U @ 2Hr 2.3 H* Lactic Acid F/U @ 4Hr Calcium Magnesium Total Bilirubin AST ALT Alkaline Phosphatase Troponin I High Sens B-Natriuretic Peptide Total Protein 6.5 Albumin Urine Color Urine Appearance Urine pH Ur Specific [place] Urine Protein Urine Glucose (UA) Urine Ketones Urine Blood Urine Nitrite Ur Leukocyte Esterase Urine RBC Urine WBC Ur Squamous Epith Cells Urine Bacteria Urine Mucus 11/25/21 11/26/21 11/26/21 19:14 10:36 10:36 MCV 102.4 H MCH 34.9 H MCHC 34.1 RDW 13.5 Plt Count 329 MPV 9.0 L Immature Gran % (Auto) 0.4 Neut % (Auto) 72.2 Lymph % (Auto) 13.6 L [place] % (Auto) 12.4 H Eos % (Auto) 0.8 Baso % (Auto) 0.6 Lymph # (Auto) 1.7 [place] # (Auto) 1.6 H Eos # (Auto) 0.1 Baso # (Auto) 0.1 Abs Immat Gran (auto) 0.05 H Absolute Neuts (auto) 9.2 H Absolute Nucleated RBC 0.000 Nucleated RBC % (auto) 0.0 Smear Tech's Comments VERIFIED PT INR APTT Anion Gap 10 L Estim Creat Clear Calc 120.4 Estimated GFR > 60 Random Glucose 112 Lactic Acid Lactic Acid F/U @ 2Hr Lactic Acid F/U @ 4Hr 1.2 Calcium 8.3 L D Magnesium Total Bilirubin AST ALT Alkaline Phosphatase Troponin I High Sens B-Natriuretic Peptide Total Protein Albumin Urine Color Urine Appearance Urine pH Ur Specific [place] Urine Protein Urine Glucose (UA) Urine Ketones Urine Blood Urine Nitrite Ur Leukocyte Esterase Urine RBC Urine WBC Ur Squamous Epith Cells Urine Bacteria Urine Mucus 11/26/21 10:36 MCV MCH MCHC RDW Plt Count MPV Immature Gran % (Auto) Neut % (Auto) Lymph % (Auto) [place] % (Auto) Eos % (Auto) Baso % (Auto) Lymph # (Auto) [place] # (Auto) Eos # (Auto) Baso # (Auto) Abs Immat Gran (auto) Absolute Neuts (auto) Absolute Nucleated RBC Nucleated RBC % (auto) Smear Tech's Comments PT 15.3 H INR 1.3 H APTT 33.4 Anion Gap Estim Creat Clear Calc Estimated GFR Random Glucose Lactic Acid Lactic Acid F/U @ 2Hr Lactic Acid F/U @ 4Hr Calcium Magnesium Total Bilirubin AST ALT Alkaline Phosphatase Troponin I High Sens B-Natriuretic Peptide Total Protein Albumin Urine Color Urine Appearance Urine pH Ur Specific [place] Urine Protein Urine Glucose (UA) Urine Ketones Urine Blood Urine Nitrite Ur Leukocyte Esterase Urine RBC Urine WBC Ur Squamous Epith Cells Urine Bacteria Urine Mucus Assessment and Plan (1) Pneumonia: Status: Acute (2) Sepsis: Status: Acute Assessment and Plan: ?66-year-old gentleman with chronic respiratory failure on 2 L of oxygen at night, history of COPD, hypertension tobacco use disorder alcohol dependence presented to [facility] due to symptoms of fever chills , productive cough, shortness of breath and chest pain, workup in the emergency room revealed mild to moderate pericardial effusion, left pleural effusion bilateral airspace disease now being admitted for close monitoring and treatment. Chest pain, ? constrictive pericarditis Likely related to underlying COPD, shortness of breath and pericardial effusion Troponin x2 negative, no evidence of CHF, follow echo and cardiology consult no chest pain this AM echo completed -- see echo results Sepsis due to pneumonia Noted to be septic due to tachycardia tachypnea and leukocytosis will place on IV Zosyn for question postobstructive pneumonia Will schedule left thoracocentesis/send fluid for cell count, cytology LDH and protein With lifetime history of smoking high risk for cancer. Mild COPD exacerbation/chronic respiratory failure on 2 L of oxygen at night Will treat with updraft treatment, cough medication and antibiotic, obtain pulmonary consult Hypertension bp soft, hold norvasc / hctz Tobacco use disorder counseling done will place on nicotine Alcohol dependence drinks 2 drinks daily no history of prior alcohol withdrawal seizures or delirium tremens will place on CIWA protocol, had [address] on phenobarb protocol with any evidence of withdrawal - so far no concerns dvt pptx, lovenox full code Quality Stroke Does the patient have a stroke diagnosis?: No VTE Prior VTE?: No VTE Risk Level:: Medical - moderate - high VTE Device Contraindication: Treatment Not Indicated VTE Drug Contraindication: N/A - Med Ordered
[2021-11-26 11:39] LABS: C Reactive Protein 19.95 mg/dL (< or = 0.50)
[2021-11-26 12:59] LABS: Erythrocyte Sedimentation Rate 81 MM/HR (0-15)
--- NOTE | 2021-11-26 13:40 | MHC.CM.PN ---
pt lives alone in home. he reports that he is independent in his care and is still driving a car. 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 he has 2 siblings that live in the area, freinds and a s.o. that can help him should he have any needs. this will include a ride home at or. pt does not use any AD c ambulation and has no svcs at home. he denies the need for vna at or. dc plan is home no svcs. cm to cont. to follow.
[2021-11-26] MEDS: Colchicine 0.6 MG TABLET PO ×2 (13:41→21:01)
--- NOTE | 2021-11-26 14:05 | P.CONPL_ITS ---
History of Present Illness History of Present Illness Consult date: 11/26/21 Chief complaint: chest pain, pericardial effusion Narrative: 66-year-old gentleman, active 60+ pack-year smoker, with underlying history of advanced supplemental oxygen dependent 2 L COPD, previously under the care of Dr. Salmon ([facility]), with prior history of recurrent pleural effusions, last left-sided drained approximately 1 L at [facility] in October 2020 (per patient) admitted on 11/25/2021 with malaise, patient was noted to have pericardial and bilateral pleural effusions. He has been evaluated by Cardiology service and started on cultures in. He does have a history of recent viral infection. Pulmonary evaluation has been requested for recurrent pleural effusions. Review of Systems Constitutional: Constitutional: Denies daytime sleepiness, Denies excessive sweating, Reports fatigue, Denies fever(s), Denies lethargy, Reports malaise, Denies night sweats, Denies snoring and Denies weight loss Eyes: Eyes: Denies blurry vision and Denies itchy eyes ENT: Denies nasal congestion, Denies post nasal drip, Denies sinus pain, Denies sinus pressure and Denies other ( Thrush) Cardiovascular: Cardiovascular: Denies chest pain, Denies pedal edema, Reports dyspnea, Denies orthopnea and Denies paroxysmal nocturnal dyspnea Respiratory: Respiratory: Denies cough, Denies hemoptysis, Denies excessive phlegm production, Reports dyspnea, Denies snoring and Denies wheezing Gastrointestinal: Gastrointestinal: Denies abdominal pain and Denies heartburn Musculoskeletal: Musculoskeletal: Denies myalgias, Denies arthralgias and Denies joint swelling Integumentary/Breasts: Skin/Breast: Denies rash Neurologic: Denies memory loss and Denies seizure-like activity Psychiatric: Psychiatric: Denies abnormal sleep pattern, Denies anxiety and D enies memory loss Endocrine: Endocrine: Denies excessive sweating, Reports fatigue and Denies heat intolerance Hematologic/Lymphatic: Hematologic/Lymphatic: Denies easy bruising Allergic/Immunologic: Allergic/Immunologic: Denies itchy eyes, Denies seasonal rhinorrhea and Denies wheezing PMFSH Past Medical History Medical History (Updated 11/26/21 @ 14:22 by Kendall Paulino MD) COPD (chronic obstructive pulmonary disease) HTN (hypertension) Social History Social History (Updated 11/25/21 @ 17:10 by Briana Montes MD) Alcohol intake: current Patient Tobacco Use Status: Current everyday Tobacco user Cigarette Packs Per Day: 2 Years Smoked: Lifetime Use of substances other than those prescribed or required for medical reasons: No Advance Directives: No Advance Directives Information Provided: Yes service: No Current occupational status: retired Meds Allergies Allergy/AdvReac Type Severity Reaction Status Date / Time No Known Allergies Allergy Unverified 08/17/20 15:18 Active Medications: Current Medications Acetaminophen (Acetaminophen 325 Mg Tablet) 650 mg PO Q6H PRN PRN Reason: Pain, Mild (Pain Scale 1-3) Last Admin: 11/26/21 08:39 Dose: 650 mg Documented by: Albuterol/Ipratropium (Albuterol/Iprat 2.5/0.5mg 3 Ml Ampul.Neb) 3 ml INHALE RQ6H WHILE AWAKE [facility] Last Admin: 11/26/21 08:44 Dose: 3 ml Documented by: Colchicine (Colchicine 0.6 Mg Tablet) 0.6 mg PO BID [facility] Last Admin: 11/26/21 13:41 Dose: 0.6 mg Documented by: Enoxaparin Sodium (Enoxaparin Sodium 40 Mg/0.4 Ml Syringe) 40 mg SUBCUT Q24H [facility] Last Admin: 11/25/21 19:37 Dose: 40 mg Documented by: Guaifenesin/Dextromethorphan (Guaifenesin Dm 200/20/10 Ml 10 Ml Syrup) 10 ml PO QID [facility] Last Admin: 11/26/21 12:56 Dose: 10 ml Documented by: Piperacillin Sod/Tazobactam (Sod 3.375 gm/ Sodium Chloride) 50 mls @ 100 mls/hr IV Q6H [facility] [place] Last Infusion: 11/26/21 12:33 Dose: Infused Documented by: Nicotine (Nicotine 21 Mg Patch.Td24) 21 mg TRANSDERMA DAILY [facility] Last Admin: 11/26/21 08:39 Dose: 21 mg Documented by: Non-Formulary Medication (Umeclidinium-Vilanterol [Anoro Ellipta]) 1 puff INHALE DAILY [facility] Ondansetron HCl (Ondansetron Hcl 4 Mg/2 Ml Vial) 4 mg IVPUSH Q8H PRN PRN Reason: Nausea and Vomiting Oxycodone HCl (Oxycodone Hcl Immed Release 5 Mg Tablet) 5 mg PO Q6H PRN PRN Reason: Pain, Moderate (Pain Scale 4-6 Last Admin: 11/26/21 08:39 Dose: 5 mg Documented by: Pharmacy Consult (Consult Rx Perform Med Rec) 1 each MISCELLANE ONCE PRN PRN Reason: Consult order Sodium Chloride (0.9 % Sodium Chloride Flush 3 Ml Syringe) 3 ml IVFLUSH QSHIFT [facility] Last Admin: 11/26/21 08:29 Dose: Not Given Documented by: Sumatriptan Succinate (Sumatriptan Succinate 50 Mg Tablet) 50 mg PO DAILY MRX1 PRN PRN Reason: Headache Tiotropium [place] (Tiotropium [place] 18 Mcg Cap.W.Dev) 1 puff INHALE RDAILY [facility] [place] Last Admin: 11/26/21 08:16 Dose: Not Given Documented by: Trazodone HCl (Trazodone Hcl 50 Mg Tablet) 50 mg PO BEDTIME [facility] Last Admin: 11/25/21 20:51 Dose: 50 mg Documented by: Home Medications Medication Instructions Recorded Confirmed Last Taken Type acetaminophen 325 mg tablet 650 mg PO Q4H PRN 11/25/21 11/25/21 Unknown History amlodipine 5 mg tablet 1 tab PO DAILY 11/25/21 11/25/21 11/25/21 History hydrochlorothiazide 25 mg tablet 1 tab PO DAILY 11/25/21 11/25/21 11/25/21 His tory ibuprofen 200 mg tablet 400 mg PO Q6H PRN 11/25/21 11/25/21 Unknown History sumatriptan succinate 50 mg tablet 1 tab PO DAILY MRX1 PRN 11/25/21 11/25/21 Unknown History trazodone 50 mg tablet 1 tab PO BEDTIME 11/25/21 11/25/21 11/24/21 History umeclidinium 62.5 mcg-vilanterol 1 puff INHALATION DAILY 11/25/21 11/25/21 11/24/21 History 25 mcg/actuation powdr for inhalation (Anoro Ellipta) Physical Exam Vital Signs: Vital Signs: Last Vital Signs Temp 97.8 F 11/26/21 09:10 Pulse 78 11/26/21 13:40 Resp 24 H 11/26/21 13:40 BP 122/69 11/26/21 13:40 Pulse Ox 95 11/26/21 13:40 BMI result Body Mass Index 29.3 Const: General: no acute distress, alert and awake Eyes: Sclerae: sclerae normal EOM: EOMs intact bilaterally Neck: Neck: Yes no lymphadenopathy, Yes trachea midline and Yes supple Resp: Effort & Inspection: normal respiratory effort and no respiratory distress Auscultation: clear to auscultation bilaterally Cardio: Rate: regular rate Rhythm: regular rhythm Heart sounds: no gallops, no murmurs and no rubs GI: Palpation (GI): Soft to palpation and Other GI palpation findings present ( Nontender) Auscultation: normal bowel sounds Extrem: General: Yes no pedal edema, No clubbing and No cyanosis Results Laboratory Findings CBC and BMP: 11/26/21 10:36 11/26/21 10:36 ABG, PT/INR, D-dimer: PT/INR, D-dimer PT 15.3 SEC (9.9-13.0) H 11/26/21 10:36 INR 1.3 (0.9-1.1) H 11/26/21 10:36 Abnormal lab findings: Abnormal Labs 11/25/21 11/25/21 11/25/21 11:48 12:11 12:41 WBC 17.9 H RBC 4.41 L Hgb Hct MCV 101.1 H MCH 34.7 H Plt Count 411 H MPV 8.8 L Immature Gran % (Auto) 0.5 H Neut % (Auto) 73.5 H Lymph % (Auto) 10.8 L [place] % (Auto) 14.6 H [place] # (Auto) 2.6 H Abs Immat Gran (auto) 0.09 H Absolute Neuts (auto) 13.2 H ESR PT INR Carbon Dioxide Anion Gap Random Glucose 144 H Lactic Acid Lactic Acid F/U @ 2Hr Calcium C-Reactive Protein B-Natriuretic Peptide 124 H Urine Protein 11/25/21 11/25/21 11/25/21 12:44 13:31 16:50 WBC RBC Hgb Hct MCV MCH Plt Count MPV Immature Gran % (Auto) Neut % (Auto) Lymph % (Auto) [place] % (Auto) [place] # (Auto) Abs Immat Gran (auto) Absolute Neuts (auto) ESR PT INR Carbon Dioxide Anion Gap Random Glucose Lactic Acid 2.2 H* Lactic Acid F/U @ 2Hr 2.3 H* Calcium C-Reactive Protein B-Natriuretic Peptide Urine Protein 1+ H 11/26/21 11/26/21 11/26/21 10:36 10:36 10:36 WBC 12.8 H RBC 3.72 L Hgb 13.0 L Hct 38.1 L MCV 102.4 H MCH 34.9 H Plt Count MPV 9.0 L Immature Gran % (Auto) Neut % (Auto) Lymph % (Auto) 13.6 L [place] % (Auto) 12.4 H [place] # (Auto) 1.6 H Abs Immat Gran (auto) 0.05 H Absolute Neuts (auto) 9.2 H ESR PT 15.3 H INR 1.3 H Carbon Dioxide 30 H Anion Gap 10 L Random Glucose Lactic Acid Lactic Acid F/U @ 2Hr Calcium 8.3 L D C-Reactive Protein 19.95 H B-Natriuretic Peptide Urine Protein 11/26/21 12:14 WBC RBC Hgb Hct MCV MCH Plt Count MPV Immature Gran % (Auto) Neut % (Auto) Lymph % (Auto) [place] % (Auto) [place] # (Auto) Abs Immat Gran (auto) Absolute Neuts (auto) ESR 81 H PT INR Carbon Dioxide Anion Gap Random Glucose Lactic Acid Lactic Acid F/U @ 2Hr Calcium C-Reactive Protein B-Natriuretic Peptide Urine Protein Assessment and Plan (1) Pleural effusion: Status: Acute (2) Supplemental oxygen dependent: Status: Acute (3) COPD (chronic obstructive pulmonary disease): Status: Acute Impression: 66-year-old gentleman with underlying advanced COPD and recurrent effusion status post prior drainage approximately 12 months prior, now admitted with dyspnea noted to have pericardial and bilateral pleural effusions. Patient has been started on colchicine by Cardiology service. appears to have mild COPD exacerbation as he has poor bilateral air movement. Recommendations: Agree with drainage and pleural fluid studies on the larger left-sided pleural effusion. Consider systemic glucocorticoids. Continue with nebulized bronchodilators. Procedures Date of Service Date of Service: 11/26/21
[2021-11-26] MEDS: Lidocaine HCl 1 % MPF 5 ML VIAL 6 ML SUBCUT (14:55)
[2021-11-26 15:28] LABS: BF Shift QC OK YES; RBC Peritoneal Fluid < 0.002 X10*6/uL
[2021-11-26 15:29] LABS: Lymphocyte Peritoneal Fl 4 %; Monocytes Peritoneal Fl 27 %; Neutrophils Peritoneal Fluid 66 %; Other Peritioneal Fl 3 %
[2021-11-26] MEDS: 0.9 % Sodium Chloride Flush 3 ML SYRINGE IVFLUSH ×3 (15:49→23:56)
[2021-11-26] MEDS: Enoxaparin Sodium 40 MG/0.4 ML SYRINGE SUBCUT (18:52)
[2021-11-26] MEDS: traZODone HCL 50 MG TABLET PO (21:01)
[2021-11-27] VITALS: BP 101/61; PULSE 75; RESP 15; TEMP 36.8; O2SAT 93
[2021-11-27 03:33] VITALS: BP 116/74; PULSE 71; RESP 18; TEMP 36.8; O2SAT 92
[2021-11-27] MEDS: Piperacillin Sodium/Tazobactam 3.375 GM in 0.9 % Sodium Chloride 50 ML IV ×2 (05:32→11:41)
[2021-11-27 07:37] VITALS: BP 107/74; PULSE 74; RESP 18; TEMP 36.7; O2SAT 93
[2021-11-27] MEDS: Albuterol/Iprat 2.5/0.5MG 3 ML AMPUL.NEB INHALE (07:57)
[2021-11-27 08:03] VITALS: PULSE 88; RESP 16; O2SAT 95
[2021-11-27] MEDS: Nicotine 21 MG PATCH.TD24 TRANSDERMA (09:11)
[2021-11-27] MEDS: Colchicine 0.6 MG TABLET PO (09:12)
[2021-11-27] MEDS: guaiFENesin DM 200/20/10 ML 10 ML SYRUP PO ×2 (09:12→14:10)
--- NOTE | 2021-11-27 09:19 | HO.PM.IMPN ---
Subjective Subjective Date of Service: 11/27/21 Interval History: seen and examined feeling better in regards to breathing and chest pain reports back pain which has been present prior to admission denies any radiation of his back pain Review of Systems negative except HPI Physical Exam Vital Signs: Vital Signs: Last Vital Signs Temp 98.1 F 11/27/21 07:37 Pulse 88 11/27/21 08:03 Resp 16 11/27/21 08:03 BP 107/74 11/27/21 07:37 Pulse Ox 93 11/27/21 07:37 BMI result Body Mass Index 29.3 Const: Other: General awake alert, appears comfortablea t rest HEENT pupils equal round reactive to light and accommodation Neck supple no JVD. CVS? regular rate rhythm, Respiratory dim sounds, no distress at rest Gastrointestinal abdomen soft, nontender, obese, bowel sounds audible,no guarding , no rigidity. Extremities no edema. Neuro nonfocal , no tremor Skin mild hyperemia anterior chest wall with telangiectasia back lumbar spine TTP, SLR negative b/l Psych appropriate affect Objective Data Active Medications Acetaminophen (Acetaminophen 325 Mg Tablet) 650 mg PO Q6H PRN PRN Reason: Pain, Mild (Pain Scale 1-3) Last Admin: 11/26/21 08:39 Dose: 650 mg Documented by: DMITRY Albuterol/Ipratropium (Albuterol/Iprat 2.5/0.5mg 3 Ml Ampul.Neb) 3 ml INHALE RQ6H WHILE AWAKE [facility] Last Admin: 11/27/21 07:57 Dose: 3 ml Documented by: VALENTINO Colchicine (Colchicine 0.6 Mg Tablet) 0.6 mg PO BID [facility] Last Admin: 11/27/21 09:12 Dose: 0.6 mg Documented by: SATNAM Enoxaparin Sodium (Enoxaparin Sodium 40 Mg/0.4 Ml Syringe) 40 mg SUBCUT Q24H [facility] Last Admin: 11/26/21 18:52 Dose: 40 mg Documented by: TONEY Guaifenesin/Dextromethorphan (Guaifenesin Dm 200/20/10 Ml 10 Ml Syrup) 10 ml PO QID [facility] Last Admin: 11/27/21 09:12 Dose: 10 ml Documented by: SATNAM Piperacillin Sod/Tazobactam (Sod 3.375 gm/ Sodium Chloride) 50 mls @ 100 mls/hr IV Q6H [facility] Last Infusion: 11/27/21 06:05 Dose: 0 mls/hr Documented by: ELICIA Nicotine (Nicotine 21 Mg Patch.Td24) 21 mg TRANSDERMA DAILY [facility] Last Admin: 11/27/21 09:11 Dose: 21 mg Documented by: SATNAM Non-Formulary Medication (Umeclidinium-Vilanterol [Anoro Ellipta]) 1 puff INHALE DAILY [facility] Ondansetron HCl (Ondansetron Hcl 4 Mg/2 Ml Vial) 4 mg IVPUSH Q8H PRN PRN Reason: Nausea and Vomiting Oxycodone HCl (Oxycodone Hcl Immed Release 5 Mg Tablet) 5 mg PO Q6H PRN PRN Reason: Pain, Moderate (Pain Scale 4-6 Last Admin: 11/26/21 08:39 Dose: 5 mg Documented by: DMITRY Pharmacy Consult (Consult Rx Perform Med Rec) 1 each MISCELLANE ONCE PRN PRN Reason: Consult order Sodium Chloride (0.9 % Sodium Chloride Flush 3 Ml Syringe) 3 ml IVFLUSH QSHIFT [facility] Last Admin: 11/26/21 23:56 Dose: 3 ml Documented by: ELICIA Sumatriptan Succinate (Sumatriptan Succinate 50 Mg Tablet) 50 mg PO DAILY MRX1 PRN PRN Reason: Headache Tiotropium [place] (Tiotropium [place] 18 Mcg Cap.W.Dev) 1 puff INHALE RDAILY [facility] Last Admin: 11/27/21 08:03 Dose: Not Given Documented by: VALENTINO Non-Admin Reason: Med Not Available Trazodone HCl (Trazodone Hcl 50 Mg Tablet) 50 mg PO BEDTIME [facility] Last Admin: 11/26/21 21:01 Dose: 50 mg Documented by: ELICIA Labs CBC & Chem 7: 11/26/21 10:36 11/26/21 10:36 Labs: Laboratory Results - last 24 hr 11/26/21 11/26/21 11/26/21 10:36 10:36 10:36 MCV 102.4 H MCH 34.9 H MCHC 34.1 RDW 13.5 Plt Count 329 MPV 9.0 L Immature Gran % (Auto) 0.4 Neut % (Auto) 72.2 Lymph % (Auto) 13.6 L [place] % (Auto) 12.4 H Eos % (Auto) 0.8 Baso % (Auto) 0.6 Lymph # (Auto) 1.7 [place] # (Auto) 1.6 H Eos # (Auto) 0.1 Baso # (Auto) 0.1 Abs Immat Gran (auto) 0.05 H Absolute Neuts (auto) 9.2 H Absolute Nucleated RBC 0.000 Nucleated RBC % (auto) 0.0 Smear Tech's Comments VERIFIED ESR PT 15.3 H INR 1.3 H APTT 33.4 Anion Gap 10 L Estim Creat Clear Calc 120.4 Estimated GFR > 60 Random Glucose 112 Calcium 8.3 L D C-Reactive Protein 19.95 H Peritoneal WBC Peritoneal RBC Periton Neutrophils Periton Lymphocytes Peritoneal Monocytes Peritoneal Other Cells 11/26/21 11/26/21 12:14 14:45 MCV MCH MCHC RDW Plt Count MPV Immature Gran % (Auto) Neut % (Auto) Lymph % (Auto) [place] % (Auto) Eos % (Auto) Baso % (Auto) Lymph # (Auto) [place] # (Auto) Eos # (Auto) Baso # (Auto) Abs Immat Gran (auto) Absolute Neuts (auto) Absolute Nucleated RBC Nucleated RBC % (auto) Smear Tech's Comments ESR 81 H PT INR APTT Anion Gap Estim Creat Clear Calc Estimated GFR Random Glucose Calcium C-Reactive Protein Peritoneal WBC 0.960 Peritoneal RBC < 0.002 Periton Neutrophils 66 Periton Lymphocytes 4 Peritoneal Monocytes 27 Peritoneal Other Cells 3 Microbiology Microbiology Results: Microbiology 11/25/21 13:31 Blood Culture - Preliminary Blood - Venous No growth after 24 hours. 11/25/21 13:31 Blood Culture - Preliminary Blood - Venous No growth after 24 hours. Assessment and Plan (1) COPD (chronic obstructive pulmonary disease): Status: Acute (2) Sepsis: Status: Acute (3) Pneumonia: Status: Acute Assessment and Plan: ?66-year-old gentleman with chronic respiratory failure on 2 L of oxygen at night, history of COPD, hypertension tobacco use disorder alcohol dependence presented to [facility] due to symptoms of fever chills , productive cough, shortness of breath and chest pain, workup in the emergency room revealed mild to moderate pericardial effusion, left pleural effusion bilateral airspace disease now being admitted for close monitoring and treatment. 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 Chest pain -- resolved colchicine 0.6mg BID Cardiology following Sepsis due to pneumonia resolved continue zosyn -- change to augmentin upon d/c pleural effusion s/p thoracentesis culture, LDH/protein, cytology added Mild COPD exacerbation/chronic respiratory failure on 2 L of oxygen at night Will treat with updraft treatment, cough medication and antibiotic, obtain pulmonary consult avoiding systemic steroids given his suspected pericarditis Hypertension bp soft, hold norvasc / hctz Tobacco use disorder counseling done will place on nicotine Alcohol dependence drinks 2 drinks daily no history of prior alcohol withdrawal seizures or delirium tremens will place on CIWA protocol, had [address] on phenobarb protocol with any evidence of withdrawal - so far no concerns dvt pptx, lovenox full code Quality Stroke Does the patient have a stroke diagnosis?: No VTE Prior VTE?: No VTE Risk Level:: Medical - moderate - high VTE Device Contraindication: Treatment Not Indicated VTE Drug Contraindication: N/A - Med Ordered
[2021-11-27 10:09] LABS: LDH Peritoneal Fluid 174
--- NOTE | 2021-11-27 11:24 | P.PNCA_ITS ---
Subjective Subjective Date of Service: 11/27/21 Interval history: Feeling better. Breathing is improving. Physical Exam Vital Signs: Last Vital Signs Temp 98.1 F 11/27/21 07:37 Pulse 88 11/27/21 08:03 Resp 16 11/27/21 08:03 BP 107/74 11/27/21 07:37 Pulse Ox 93 11/27/21 07:37 BMI result Body Mass Index 29.3 GENERAL APPEARANCE:? In no distress. NECK: no carotid bruit, no jugular venous distention. SKIN: no suspicious lesions, warm and dry. HEART: no murmurs, regular rate and rhythm. LUNGS:? Clear to auscultation. ABDOMEN: soft, nontender. EXTREMITIES: no edema. PERIPHERAL PULSES: equal. NEUROLOGIC: No gross deficits, AAO X 3 Objective Labs and Meds Result diagrams: 11/26/21 10:36 11/26/21 10:36 Lab results: Laboratory Results - last 24 hr 11/26/21 11/26/21 11/26/21 10:36 12:14 14:45 ESR 81 H C-Reactive Protein 19.95 H Peritoneal WBC 0.960 Peritoneal RBC < 0.002 Periton Neutrophils 66 Periton Lymphocytes 4 Peritoneal Monocytes 27 Peritoneal Other Cells 3 Peritoneal LDH 11/26/21 14:45 ESR C-Reactive Protein Peritoneal WBC Peritoneal RBC Periton Neutrophils Periton Lymphocytes Peritoneal Monocytes Peritoneal Other Cells Peritoneal LDH 174 Imaging Radiologist's impression: Impressions Thoracentesis Ultrasound 11/26/21 14:53 IMPRESSION: Left thoracentesis with removal of 600 mL of clear mary fluid. Chest X-Ray 11/26/21 15:06 IMPRESSION: Status post left thoracentesis with less fluid identified but left lower lobe disease remaining. Lumbar Spine X-Ray 11/27/21 09:45 IMPRESSION: No acute fractures or malalignment. Mild to moderate lumbar spondylosis which could be further assessed with a nonemergent MRI of the lumbar spine if indicated. The abdominal aorta measures up to 3.3 cm in diameter. In an asymptomatic patient a surveillance image in 3 years is recommended. Progress Note: A&P Assessment and plan (1) COPD (chronic obstructive pulmonary disease): Status: Acute (2) Acute pericardial effusion: Status: Acute Assessment and Plan: 66-year-old gentleman who has history of tobacco abuse and alcohol use who is presenting for shortness of breath. He was noted to be in COPD exacerbation which was treated appropriately. His breathing improving. His CT scan has shown bilateral effusions and moderate pericardial effusion. 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 Clinically he is already improving. I think we continue the colchicine. I will repeat echocardiogram in 4-6 weeks to reassess the pericardial effusion and constrictive changes. Thank you for allowing me to participate in the care of your patient. Please feel free to contact me if you have any questions. Fall Risk Details Current Medications: Current Medications Acetaminophen (Acetaminophen 325 Mg Tablet) 650 mg PO Q6H PRN PRN Reason: Pain, Mild (Pain Scale 1-3) Last Admin: 11/26/21 08:39 Dose: 650 mg Documented by: Albuterol/Ipratropium (Albuterol/Iprat 2.5/0.5mg 3 Ml Ampul.Neb) 3 ml INHALE RQ6H WHILE AWAKE [facility] Last Admin: 11/27/21 07:57 Dose: 3 ml Documented by: Colchicine (Colchicine 0.6 Mg Tablet) 0.6 mg PO BID [facility] Last Admin: 11/27/21 09:12 Dose: 0.6 mg Documented by: Enoxaparin Sodium (Enoxaparin Sodium 40 Mg/0.4 Ml Syringe) 40 mg SUBCUT Q24H [facility] Last Admin: 11/26/21 18:52 Dose: 40 mg Documented by: Guaifenesin/Dextromethorphan (Guaifenesin Dm 200/20/10 Ml 10 Ml Syrup) 10 ml PO QID [facility] Last Admin: 11/27/21 09:12 Dose: 10 ml Documented by: Piperacillin Sod/Tazobactam (Sod 3.375 gm/ Sodium Chloride) 50 mls @ 100 mls/hr IV Q6H [facility] Last Infusion: 11/27/21 06:05 Dose: Infused Documented by: Nicotine (Nicotine 21 Mg Patch.Td24) 21 mg TRANSDERMA DAILY [facility] Last Admin: 11/27/21 09:11 Dose: 21 mg Documented by: Non-Formulary Medication (Umeclidinium-Vilanterol [Anoro Ellipta]) 1 puff INHALE DAILY [facility] Ondansetron HCl (Ondansetron Hcl 4 Mg/2 Ml Vial) 4 mg IVPUSH Q8H PRN PRN Reason: Nausea and Vomiting Oxycodone HCl (Oxycodone Hcl Immed Release 5 Mg Tablet) 5 mg PO Q6H PRN PRN Reason: Pain, Moderate (Pain Scale 4-6 Last Admin: 11/26/21 08:39 Dose: 5 mg Documented by: Pharmacy Consult (Consult Rx Perform Med Rec) 1 each MISCELLANE ONCE PRN PRN Reason: Consult order Sodium Chloride (0.9 % Sodium Chloride Flush 3 Ml Syringe) 3 ml IVFLUSH QSHIFT [facility] Last Admin: 11/26/21 23:56 Dose: 3 ml Documented by: Sumatriptan Succinate (Sumatriptan Succinate 50 Mg Tablet) 50 mg PO DAILY MRX1 PRN PRN Reason: Headache Tiotropium [place] (Tiotropium [place] 18 Mcg Cap.W.Dev) 1 puff INHALE RDAILY [facility] Last Admin: 11/27/21 08:03 Dose: Not Given Documented by: Trazodone HCl (Trazodone Hcl 50 Mg Tablet) 50 mg PO BEDTIME [facility] Last Admin: 11/26/21 21:01 Dose: 50 mg Documented by: Time Spent With Patient Time: Total time spent is greater than 50% in coordination of care (as documented) at patient's floor/unit and/or counseling patient: Time with patient: 15 - 24 minutes Progress Note: Quality Stroke Does the patient have a stroke diagnosis?: No Procedures Date of Service Date of Service: 11/27/21
[2021-11-27 11:51] VITALS: BP 97/56; PULSE 78; RESP 18; TEMP 37.1; O2SAT 93
--- NOTE | 2021-11-27 12:39 | P.DS_ITS ---
DS: Providers Provider Date of Service: 11/27/21 Date of admission: 11/25/21 16:38 Primary care physician: Venancio Helm MD Consults: 11/25/21 16:44 Consult to Cardiology Routine Consulting Provider: Bishop Brady Reason for consultation: pericardial effusion Has provider been notified: No 11/25/21 16:50 Consult to Pulmonology Routine Consulting Provider: Robert Chavez Reason for consultation: pleural effusion Has provider been notified: No DS: Diagnosis Discharge Diagnosis (1) Acute pericardial effusion: Status: Acute (2) Constrictive pericarditis: Status: Acute (3) Sepsis: Status: Acute (4) Pneumonia: Status: Acute (5) COPD exacerbation: Status: Acute DS: Summary Hospital Course Hospital Course: HPI from admission H&P: 66-year-old gentleman with past medical history significant for hypertension, C OPD on 2 L of home oxygen at night presented to [facility] due to not feeling good in last several days according to him he has been having headaches for for last several days that works him up from sleep for which he took some [id number] medicine felt better, 4 days ago on Friday he took out his trash lifting a bag on his back and developed significant back pain and was unable to sleep at night cough of for last 1 week he has been noticing chest pain that he felt related to muscle pull therefore did not seek medical attention, last night he developed shortness of breath therefore uses rescue inhaler and Breo Ellipta but that did not help, he has also been feeling cold and hot for last several days and has been coughing and bringing up thick yellow brown phlegm, he denies sick contacts, denies recent history of travel denies weight loss, this morning he woke up at 03:00 due to severe substernal chest pain non radiating, associated with shortness of breath, nausea and diaphoresis that made him very concerned and he came to the emergency room, in the emergency room he underwent extensive testing, BNP 124, troponin x2 are flat, chest x-ray showed moderate left pleural effusion, trace right pleural effusion and an irregular shaped 1.5 cm density over the right upper pulmonary lobe, subsequently underwent a CTA chest shows that showed no evidence of pulmonary embolism, but showed prominent ascending thoracic aorta 4.2 cm in diameter without dissection, moderate-sized pericardial effusion, small to moderate left pleural effusion with bibasilar parenchymal disease and small right pleural effusion, EKG showed normal QTC sinus tachycardia no ST elevation, T-wave inversion in the anterior leads and nonspecific ST changes of inferior leads, on examination patient noted to be tachypneic tachycardic afebrile with stable oxygenation. Hospital Course: Patient was started on IV fluids and IV Zosyn for his sepsis secondary to pneumonia. He was evaluated with a 2D echo which had evidence of constrictive pericarditis. Cardiology recommended starting him on colchicine. Within about 24 hours patient has significant improvement in his presenting chest pain. Amy ent also had mild COPD exacerbation, however systemic steroids were deferred because of the risk of recurrent pericarditis. Patient also underwent thoracentesis (studies are pending at the time of discharge and can be followed as an outpatient). He will be discharged home on oral colchicine 0.6mg daily and will have f/u with cardiology in 4-6 weeks repeat echocardiography. He will also be d/c on 5 more days of Augmentin (blood cx negative at the time of d/c). Additionally, patients blood pressure has remained on the lower end of normal without his antihypertensives in the hospital. His norvasc and hctz will be held at the time of discharge. Last, the patient complained of back pain, MSK in nature. A Lumbar XR showed mild to moderate lubmar spondylosis. He was evaluated by PT who recommended outpatient PT. Outpatient MRI can be considered if his pain does not improve. Time Spent with Patient Time attestation: Total time spent providing and/or coordinating discharge services: Discharge coordination time: Greater than 30 minutes Quality: Stroke Does the patient have a stroke diagnosis?: No Physical Exam Vital Signs: Vital Signs: Last Vital Signs Temp 98.8 F 11/27/21 11:51 Pulse 78 11/27/21 11:51 Resp 18 11/27/21 11:51 BP 97/56 L 11/27/21 11:51 Pulse Ox 93 11/27/21 11:51 BMI result Body Mass Index 29.3 Const: Other: General - no acute distress, appears comfortable Cardiovascular - regular rate and rhythm, S1-S2 Lungs - normal respiratory effort, clear to auscultation bilaterally, no wheezing Abdomen - soft, nontender, no rebound or guarding Extremities - no edema bilaterally Neuro - awake and alert, no focal deficits DS: Data Data Completed and Pending Pending studies at discharge: Pending at discharge 11/27/21 09:30 Cytology [PTH] Stat Labs on day of discharge: Laboratory Results - last 24 hr 11/26/21 11/26/21 11/26/21 12:14 14:45 14:45 ESR 81 H Peritoneal WBC 0.960 Peritoneal RBC < 0.002 Periton Neutrophils 66 Periton Lymphocytes 4 Peritoneal Monocytes 27 Peritoneal Other Cells 3 Peritoneal LDH 174 Preliminary micro results at discharge 11/25/21 13:31 Blood Culture - Preliminary Blood - Venous No growth after 24 hours. 11/25/21 13:31 Blood Culture - Preliminary Blood - Venous No growth after 24 hours. Discharge Plan Discharge Patient Disposition: Home, Self-Care Discharge Diagnosis: Constrictive pericarditis Referrals: Venancio Helm MD [Primary Care Provider] - 1 Week Discharge Medications: New amoxicillin-pot clavulanate 875-125 mg tablet 1 tab PO BID Qty: 10 RF: 0 colchicine 0.6 mg tablet 0.6 mg PO DAILY Qty: 30 RF: 0 Continued acetaminophen 325 mg Tablet 650 mg PO Q4H PRN (Reason: Headache) RF: 0 trazodone 50 mg tablet 1 tab PO BEDTIME RF: 0 sumatriptan succinate 50 mg tablet 1 tab PO DAILY MRX1 PRN (Reason: Headache) RF: 0 ibuprofen 200 mg Tablet 400 mg PO Q6H PRN (Reason: Headache) RF: 0 Anoro Ellipta 62.5-25 mcg/actuation blister with device 1 puff inhalation DAILY RF: 0 Discontinued amlodipine 5 mg tablet 1 tab PO DAILY RF: 0 hydrochlorothiazide 25 mg tablet 1 tab PO DAILY RF: 0 Diet: advance to usual diet Activity on Discharge: As tolerated Stand Alone Forms: Patient Portal Discharge page Care Plan Goals: To stay healthy and out of the hospital. Health Concerns: Constructive Pericarditis Possible Pneumonia COPD Back Pain Plan of Treatment: Constructive Pericarditis - Take Colchicine 0.6mg daily, follow up cardiology in about 4 weeks Possible Pneumonia - Finish 5 more days of Augmentin COPD - Continue your baseline inhalers Back Pain - Outpatient Physical therapy Assessment: see d/c summary
[2021-11-27 15:33] VITALS: BP 116/64; PULSE 81; RESP 20; TEMP 36.9; O2SAT 95
[2021-11-29 11:26] LABS: Total Protein Peritoneal Fluid 3.2
== END 2021-11-27 18:06 | disposition home or self-care (01) | DRG 871 ==
LOC: HO.ED 16:22 → HO.EDOVER 16:46 → HO.S3 11-26 16:57
PROVIDERS: Internal Medicine; Internal Medicine Cardiovascular Disease; Physician Assistant; Radiology Diagnostic Radiology; Admitting Provider Hospitalist; Emergency Provider Emergency Medicine; PCP Internal Medicine; Visit Provider Family Medicine
PROC: 0W9B3ZZ Drainage of Left Pleural Cavity, Percutaneous Approach (ICD-10-PCS; principal; 2021-11-26 13:00)
DX: A41.9 Sepsis, unspecified organism (principal); J18.9 Pneumonia, unspecified organism; J44.1 Chronic obstructive pulmonary disease with (acute) exacerbation; J44.0 Chronic obstructive pulmonary disease with (acute) lower respiratory infection; I31.9 Disease of pericardium, unspecified; J90 Pleural effusion, not elsewhere classified; F10.20 Alcohol dependence, uncomplicated; F17.210 Nicotine dependence, cigarettes, uncomplicated; Z71.6 Tobacco abuse counseling; Z20.822 Contact with and (suspected) exposure to COVID-19; Z23 Encounter for immunization; Z99.81 Dependence on supplemental oxygen; Z79.1 Long term (current) use of non-steroidal anti-inflammatories (NSAID); Z79.899 Other long term (current) drug therapy
CPT/HCPCS: 0241U; 32555; 36415; 71045; 71046; 71275; 72100; 80048; 80053; 81001; 83605; 83615; 83735; 83880; 84155; 84157; 84484; 85025; 85610; 85652; 85730; 86140; 87040; 87071; 87073; 87205; 88112; 88305; 89051; 90686; 93005; 93306; 94640; 96361; 96365; 96366; 96367; 96375; 97162; 99285; J0456; J0696; J1650; J1940; J2543; Q9967

== ENCOUNTER 2021-12-04 12:25 | Outpatient (REF) | payer MEDICARE, SELFPAY ==
--- NOTE | ~2021-12-04 | CT_ITS ---
CT ANGIOGRAM NECK WITH CONTRAST CT ANGIOGRAM BRAIN WITH CONTRAST CLINICAL INFORMATION: Transient monocular blindness. COMPARISON: Brain MRI 05/30/2017. TECHNIQUE: Test bolus sequences followed by intravenous administration 70 mL of Omnipaque 350. Helical imaging was performed in the axial plane from the thoracic inlet to the skull vertex. Delayed postcontrast imaging of the head was also performed. The data was processed at the sterile processing technologist workstation for generation of MIP sequences. Angled MIPs and volume rendered reformatted images were also generated at an offline 3D workstation under concurrent supervision. Stenoses are assessed in accordance with NASCET criteria unless otherwise indicated. This CT examination was performed using dose optimization techniques as appropriate, variously including the following: *Automated exposure control *Adjustment of mA and/or kV according to patient size (this includes techniques or standardized protocols for targeted exams where dose is matched to indication/reason for exam; i.e. extremities or head) *Use of iterative reconstruction technique FINDINGS: BRAIN: [There is no intracranial hemorrhage, hydrocephalus, extra-axial surface collection, midline shift, or other herniation pattern. There is an empty sella. Purvis to white matter differentiation is diffusely maintained without evidence of an evolved acute territorial infarct. The basilar cisterns are preserved. No significant soft tissue abnormality. No acute osseous abnormality. The paranasal sinuses and the mastoid air cells are well aerated.] CERVICAL SOFT TISSUES AND LUNG APICES: There is centrilobular emphysema throughout the imaged lungs. Small left pleural effusion. There is multilevel cervical spondylosis. No significant soft tissue findings are appreciated within the neck. NECK CTA: [There is a classic 3 vessel configuration of the aortic arch. Proximal arch vessels are non-stenotic. The vertebral arteries are codominant. No significant ostial stenosis is visualized on either side. Both vertebral arteries are widely patent throughout their extracranial cervical course. Both common carotid arteries are normal in course and caliber.] There is atherosclerotic calcification involving the carotid bifurcations bilaterally resulting in less than 50% stenoses of the proximal internal carotid arteries on both sides. BRAIN CTA: There are two severe segmental stenoses involving the left P2/P3 posterior cerebral artery junction. Normal opacification of the more distal left FICTION AND NONFICTION AUTHOR branches. No acute large vessel occlusions. No additional significant arterial stenoses intracranially. No acute arterial occlusions. CT/CT angio head neck IMPRESSION: - No acute intracranial findings. No enhancing lesions intracranially. There is an empty sella. - There are two severe segmental tandem stenoses involving the left P2/P3 posterior cerebral artery junction. Normal opacification of the more distal left FICTION AND NONFICTION AUTHOR branches. No acute large vessel occlusions. - No significant arterial stenoses within the neck. - There is centrilobular emphysema throughout the imaged lungs. Small left pleural effusion.
[2021-12-04 13:22] LABS: Anion Gap 14 (12-20); Blood Urea Nitrogen 13 mg/dL (9-16); Calcium 9.7 mg/dL (8.4-10.2); Carbon Dioxide 23 mmol/L (22-29); Chloride 108 mmol/L (96-108); Estimated Glomerular Filt Rate > 60; Glucose Random 100 mg/dL (60-115); Potassium 4.9 mmol/L (3.3-5.1); Sodium 140 mmol/L (135-145)
[2021-12-04 13:44] LABS: Erythrocyte Sedimentation Rate 37 MM/HR (0-15)
[2021-12-04] MEDS: iohexoL 350 MG/ML 100 ML INFUS..BTL IV (14:40)
== END 2021-12-04 12:26 | disposition home or self-care (01) ==
LOC: HO.CT 12:25
PROVIDERS: PCP Internal Medicine; Visit Provider Psychiatry & Neurology Neurology
DX: H53.129 Transient visual loss, unspecified eye (principal)
CPT/HCPCS: 36415; 70496; 70498; 80048; 85652; Q9967

== ENCOUNTER → 2021-12-24 11:13 | Outpatient (BNVA) | payer MEDICARE, SELFPAY | PROVIDERS: PCP Internal Medicine; Referring Provider Internal Medicine; Visit Provider Internal Medicine Cardiovascular Disease | DX: Z01.810 Encounter for preprocedural cardiovascular examination (principal); I31.3 Pericardial effusion (noninflammatory); J44.1 Chronic obstructive pulmonary disease with (acute) exacerbation | CPT/HCPCS: 93005; 99212 ==

== ENCOUNTER → 2021-12-27 10:29 | Outpatient (REF) | payer MEDICARE, SELFPAY ==
--- NOTE | 2021-12-27 10:35 | CA_ITS ---
Transthoracic Echocardiogram Patient (Last, First, Middle): Nader Shin J Gender: Male Date of : 1955 Age: 66 Procedure Date: 12/27/2021 Procedure Type: Transthoracic Echocardiogram Location: OP Height: 177.8 cm Weight: 91.63 kg BSA: 2.10 m2 Heart Rate: bpm BP: 122 / 80 mmHg Chief Librarian Branch: FLORENCIO Referring MD: Jc Hernandez MD Wireless Team Member: Antonino Winslow MD Symptoms: I31.3 - Pericardial effusion (noninflammatory) Study Quality: Fair ECG Rhythm: Sinus Conclusions: - Trivial pericardial effusion noted Findings Venous The inferior vena cava is normal in size. Pericardium/Pleural There is a trivial pericardial effusion. There are no definitive echocardiographic findings of constrictive physiology. Prior Study Comparison Changes noted compared to prior study dated: 11/26/2021. no constrictive physiology noted Measurements Right Ventricle TAPSE (mm): 19.80 TVS' Abhijit: 10.90 Tricuspid Valve TR Pk Abhijit: 2.50 TR Pk Grad: 25.00 RA Press: 3.00 RVSP: 28.00 Updated in Other Vendor System with Status of Final Antonino Winslow MD electronically signed on 12/28/2021 4:54:23 PM with status of Final
== END ==
LOC: HO.CARD 10:29
PROVIDERS: PCP Internal Medicine; Visit Provider Internal Medicine Cardiovascular Disease
DX: I31.3 Pericardial effusion (noninflammatory) (principal)
CPT/HCPCS: 93308

== ENCOUNTER → 2022-03-28 14:56 | Outpatient (BNVA) | payer MEDICARE, SELFPAY | PROVIDERS: PCP Internal Medicine; Referring Provider Internal Medicine; Visit Provider Internal Medicine Cardiovascular Disease | DX: I31.3 Pericardial effusion (noninflammatory) (principal); I10 Essential (primary) hypertension; J44.9 Chronic obstructive pulmonary disease, unspecified | CPT/HCPCS: 99212 ==

== ENCOUNTER → 2022-08-21 15:07 | Outpatient (BNVA) | payer MEDICARE, SELFPAY | PROVIDERS: PCP Internal Medicine; Referring Provider Internal Medicine; Visit Provider Internal Medicine Cardiovascular Disease | DX: R06.09 Other forms of dyspnea (principal) | CPT/HCPCS: 93005; 99212 ==

== ENCOUNTER → 2022-12-23 09:30 | Outpatient (REF) | payer MEDICARE, SELFPAY ==
--- NOTE | ~2022-12-23 | NM_ITS ---
Myocardial perfusion study Indication: Shortness of breath evaluate for myocardial ischemia Technique: The patient was brought in for a Lexiscan perfusion study on 12/23/2022. Patient performed low-level exercise and was injected 0.4 mg of Lexiscan intravenously. Within a minute of injection, 30 mCi of sestamibi was given intravenously. Images were obtained using the SPECT gamma camera interlaced with the gating device. Images were obtained in supine position. Resting perfusion study was performed on 12/24/2002. Patient was administered 30 mCi of sestamibi intravenously at rest. Images were then obtained in supine position. Images obtained with and without CT attenuation. Total DLP 115 mGy-cm. Images were processed with the software and compared side to side in short axis, horizontal long axis and vertical long axis views. Findings: The stress perfusion study showed non attenuated images show mildly reduced uptake in the basal and mid inferior wall of the LV myocardium. Remainder of the LV myocardium is normally perfused. Attenuation corrected images show normal uptake of radiotracer in all segments of LV myocardium. The gated study shows normal LV systolic function with calculated LVEF of 65%. LV cavity is normal in size. The gated study shows normal systolic wall thickening and contraction of segments. Resting study shows no significant change in perfusion pattern compared to stress perfusion study. Gating at rest reveals normal systolic wall motion with ejection fraction at greater than 60%. The findings are consistent with normal myocardial perfusion. NM/NM cardiolite stress test Impression: 1. Myocardial perfusion imaging study shows normal myocardial perfusion 2. Gated LVEF is 65% 3. Transient ischemic dilatation not present EKG is nondiagnostic for ischemia
--- NOTE | 2022-12-23 09:33 | CA_ITS ---
Acquisition Time: 2022-12-23 09:41:40 Total Exercise Time: 00:03:28 Test Indications: Dyspnea Medications: AMLODIPINE HCTZ COMBIVENT SUMATRIPTAN TRAZADONE Protocol: MOD EDISON Max HR: 118 BPM 76% of Pred: 154 BPM Max BP: 164/090 mmHG Max Work Load: 2.5 METS Exercise stress test with exercise 3 min 28 sec of modified edison protocol, achieving 72% MPHR, 2.5 METs, with moderate to severe SOB and report of lightheadedness with need to stop, with isolated PACs, with normotensive response to exercise, with nondiagnostic EKG for ischemia. Treadmill stopped and pt assisted to sitting. Once breathing normalized testing changed to a pharmacological nuclear stress test with Lexiscan injection, while sitting and kicking his legs, with report that he is going to pass out and with moderate sob, without arrythmia or drop in heart rate, with normotensive response to injection, with nondiagnostic EKG for ischemia. In recovery he was treated with 200 cc IV normal saline, Aminophylline 75mg IVP and caffinated soda with gradual improvement in symptoms. No syncope occurred. Nuclear images pending. Test reviewed with Dr Brady. Referred By: Jc Hernandez Overread By: CHUY QUIÑONES
== END ==
LOC: HO.CARD 09:30
PROVIDERS: PCP Internal Medicine; Visit Provider Internal Medicine Cardiovascular Disease
DX: R06.09 Other forms of dyspnea (principal)
CPT/HCPCS: 78452; 93017; A9500; J0280; J2785

== ENCOUNTER → 2023-02-27 14:27 | Outpatient (BNVA) | payer MEDICARE, SELFPAY | PROVIDERS: PCP Internal Medicine; Referring Provider Internal Medicine; Visit Provider Nurse Practitioner Family | DX: I31.1 Chronic constrictive pericarditis (principal); I31.39 Other pericardial effusion (noninflammatory); I10 Essential (primary) hypertension; R06.09 Other forms of dyspnea; F17.210 Nicotine dependence, cigarettes, uncomplicated | CPT/HCPCS: 99212 ==

== ENCOUNTER → 2023-08-20 12:46 | Outpatient (REF) | payer MEDICARE, SELFPAY ==
--- NOTE | 2023-08-20 12:49 | CA_ITS ---
Transthoracic Echocardiogram Patient (Last, First, Middle): Nader Shin J Gender: Male Date of : 1955 Age: 68 Procedure Date: 08/20/2023 Procedure Type: Transthoracic Echocardiogram Location: OP Height: 177.8 cm Weight: 101.15 kg BSA: 2.19 m2 Heart Rate: 86 bpm BP: 138 / 70 mmHg Square Dance Caller: YENI/EDILIA Referring MD: Isatu Santiago [employer] Symptoms: I31.3 - Pericardial effusion (noninflammatory) Study Quality: Fair but adequate ECG Rhythm: Sinus Conclusions: - The left ventricular systolic function is normal. The calculated ejection fraction is 57% by biplane method. - No obvious valvular pathology seen on this study. - There is mild dilatation of the ascending aorta measuring 4.20 cm. - There is no evidence of pericardial effusion. Findings Procedure Information The quality of the study was technically difficult. The study quality is limited by patients body habitus. Left Ventricle Normal left ventricular cavity size. The left ventricular systolic function is normal. The calculated ejection fraction is 57% by biplane method. There is no evidence of regional wall motion abnormalities. Diastolic function is normal for age. There is mild septal asymmetric hypertrophy. Right Ventricle Normal right ventricular cavity size and systolic function. Atria Both atria are normal in size. Aortic Valve There is a normal trileaflet aortic valve. There is mild calcification of the aortic valve. There is no aortic valve stenosis. There is no aortic valve regurgitation. Mitral Valve The mitral valve appears normal. There is no mitral valve regurgitation. There is no mitral valve stenosis. Pulmonic Valve The pulmonic valve is likely normal. Tricuspid Valve Normal tricuspid valve structure. There is trace tricuspid valve regurgitation. There is no evidence of pulmonary hypertension. Great Vessels There is mild dilatation of the ascending aorta measuring 4.20 cm. Venous The inferior vena cava is normal in size and collapses greater than 50% with inspiration. Pericardium/Pleural There is no evidence of pericardial effusion. Prior Study Comparison Changes noted compared to prior study dated: 12/27/2021. slight increase in ascending aortic size. Recommendations, Care & Conclusions No obvious valvular pathology seen on this study. Measurements 2D Linear Measurements IVSd: 1.00 0.6-0.9/0.6-1.0 cm LVIDd: 4.54 3.9-5.3/4.2-5.9 cm LVIDd Index: 2.07 2.4-3.2/2.2-3.1 cm/m2 LVIDs: 2.63 2.0-3.6 cm LVPWd: 1.00 0.7-1.1 cm Ao Root: 3.70 2.1-3.5 cm LA Diam: 3.60 2.7-3.8/3.0-4.0 cm LAIDs Index: 1.64 1.5-2.3 cm/m2 LV Mass: 193.33 67-162/88-224 g LV Mass Index: 88.28 43-95/49-115 g/m2 LVOT Diam: 2.40 3.0+(-)1.3 cm 2D Systolic Function EF 4C: 52.10 >55% EF 2C: 60.50 >55% EF BiP: 56.50 >55% Mitral Valve MV Pk E: 0.52 MV PK A: 0.40 MV Decel Time: 154.00 E/A: 1.30 E'Lateral: 10.40 E'Medial: 6.96 E/E' Med: 7.40 E/E' Lat: 5.00 PHT: 45.00 MVA PHT: 4.89 Decel [place]: 3.37 Aortic Valve AoV Pk Abhijit: 1.20 AoV Pk Grad: 6.00 LANA: 2.85 LVOT LVOT Pk Abhijit: 0.76 LVOT Mn Abhijit: 0.53 LVOT VTI: 0.16 LVOT Pk Grad: 2.00 LVOT Mn Grad: 2.00 LVOT Diam: 2.40 LVOT Area: 4.52 Diastolic Function MV Pk E: 0.52 MV Pk A: 0.40 E/A: 1.30 E'Medial: 6.96 E/E' Med: 7.40 E' Laterial: 10.40 E/E' Lat: 5.00 Right Ventricle TAPSE (mm): 20.40 TVS' Abhijit: 13.40 Tricuspid Valve TR Pk Abhijit: 2.45 TR Pk Grad: 24.00 RA Press: 3.00 RVSP: 27.00 Great Vessels Aorta Ao Root-2D: 3.70 2.0-3.7 cm Sinus of Valsalva: 3.70 2.0-3.5 cm Ao Asc: 4.20 2.1-3.4 cm Pulmonary Valve PV Pk Abhijit: 0.86 Peak PV Grad: 3.00 Updated in Other Vendor System with Status of Final Bishop Brady MD electronically signed on 08/20/2023 4:38:25 PM with status of Final
== END ==
LOC: HO.CARD 12:46
PROVIDERS: PCP Internal Medicine; Visit Provider Nurse Practitioner Family
DX: I31.1 Chronic constrictive pericarditis (principal); R06.09 Other forms of dyspnea
CPT/HCPCS: 93306

== ENCOUNTER → 2023-08-20 12:49 | Outpatient (BNV) | payer MEDICARE, SELFPAY | PROVIDERS: PCP Internal Medicine; Visit Provider Internal Medicine | DX: I35.8 Other nonrheumatic aortic valve disorders (principal) | CPT/HCPCS: 93306 ==

== ENCOUNTER 2023-08-26 14:26 | Outpatient (AMB) | payer MEDICARE, SELFPAY ==
--- NOTE | 2023-08-26 14:35 | A.OFFVIS_ITS ---
Intake Vital Signs 08/26/23 14:37 Height 5 ft 10 in Weight 205 lb 7.533 oz BMI 29.5 BP 128/76 Blood Pressure Location Lt brachial Position Sitting Pulse 95 Pulse Source Pulse Oximeter Pulse Oximetry (%) 95 Oxygen Delivery Method Room Air Intake Visit Reasons: f/u after testing Intake Note: Pt presents to the office today for a follow up after testing. Pt states he is overall feeling okay and denies any SOB or chest pain. Allergies No Known Allergies Allergy (Verified 08/26/23 14:39) HPI f/u after testing HPI Details Nader is a 68-year-old male with past medical history of hypertension, COPD, smoking, dilated ascending aorta, constrictive pericarditis who presents for follow-up after recent echocardiogram. Today he reports he has been doing generally well. Denies any recent changes to his health. He continues to smoke. He has some shortness of breath with exertion which is not new. No chest discomfort at rest or with activity. No heart palpitations, dizziness, presyncope, syncope, PND, orthopnea or edema. Taking meds as directed. [facility] Medical History Supplemental oxygen dependent Alcohol dependence Tobacco use disorder Pneumonia Sepsis Chronic respiratory failure Pleural effusion Acute pericardial effusion Chest pain HTN (hypertension) COPD (chronic obstructive pulmonary disease) Surgical History History of eyelid surgery History of appendectomy History of tonsillectomy H/O hernia repair Family History Mother No problems noted. Father No problems noted. Brother Gout Social History Household Members: None Housing: House Do you presently have visiting nurse or other home services: No Alcohol intake: current Alcohol intake frequency: 0-2 drinks per day Alcohol type: hard liquor Patient Tobacco Use Status: Current everyday Tobacco user Tobacco use type: Cigarette Cigarette Packs Per Day: 1.5 Cigarettes Per Day: 30 Years Smoked: 52 +/- service: No Current occupational status: retired Review of Systems Const All systems reviewed & are unremarkable except as noted in HPI and below Card Details: Ongoing smoking Denies chest pain at rest, Denies chest pain with activity and Reports dyspnea on exertion Resp Reports dyspnea on exertion Physical Exam Vital Signs: Last Vital Signs Pulse 95 08/26/23 14:37 BP 128/76 08/26/23 14:37 Pulse Ox 95 08/26/23 14:37 Oxygen Delivery Method Room Air 08/26/23 14:37 BMI result Body Mass Index 29.5 Const Other: Prominent smell of tobacco in the exam room General: cooperative, comfortable and no acute distress Orientation/consciousness: patient oriented x3 Neck Neck: Yes normal visual inspection and Yes no JVD Resp Effort & Inspection: normal respiratory effort Auscultation: clear to auscultation bilaterally, no crackles, no rales, no rhonchi and no wheezes Cardio Jugular venous distension: no JVD Rate: regular rate Rhythm: regular rhythm Heart sounds: S1 normal heart sound present, S2 normal heart sound present, no murmurs and no rubs Neuro General: patient oriented x3 Extrem General: Yes normal to inspection, No no pedal edema and No calf tenderness Psych Appearance: grossly normal Mental Status: mental status grossly normal Speech and movement: Normal speech and movement present Assessment & Plan Assessment & Plan (1) Constrictive pericarditis: Code(s): 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 Echocardiogram done 12/27/2021 showing trivial pericardial effusion, no definitive echocardiograph findings of constrictive physiology. Echocardiogram done 08/20/2023 shows EF 57%, ascending aorta 4.2 cm, no pericardial effusion. Currently feeling well with no concerning symptoms. He does have some shortness of breath with exertion which is not new. No chest discomfort reported. (2) Pericardial effusion: Code(s): I31.3 - Pericardial effusion (noninflammatory) Plan: No effusion present on recent echocardiogram. (3) Essential hypertension: Code(s): I10 - Essential (primary) hypertension Plan: Well controlled at present time. No med changes made today. Continue on amlodipine and hydrochlorothiazide. He says labs followed by PCP (4) OLIVEIRA (dyspnea on exertion): Code(s): R06.09 - Other forms of dyspnea Plan: As above. He continues to smoke 1.5 pack of cigarettes per day. He tells me he does follow with pulmonology and is working on cigarette reduction. (5) Tobacco use disorder: Code(s): F17.200 - Nicotine dependence, unspecified, uncomplicated (6) Ascending aorta dilation: Code(s): I77.810 - Thoracic aortic ectasia Plan: Echocardiogram in 2020 shows ascending aorta 4 cm. Echocardiogram 08/20/2023 shows ascending aorta 4.2 cm. Blood pressure is well controlled. Results reviewed with patient. Will repeat echo in a year to further assess rate of change. Orders: Orders CA echo transthoracic complete 50 Weeks I77.810 - Thoracic aortic ectasia Coding Level of Care Code Est Pt Level 4 (96456) Diagnoses Constrictive pericarditis I31.1 Pericardial effusion I31.3 Essential hypertension I10 OLIVEIRA (dyspnea on exertion) R06.09 Tobacco use disorder F17.200 Ascending aorta dilation I77.810 Time Spent (min) 28
[2023-08-26 14:37] VITALS: BP 128/76; PULSE 95; O2SAT 95; BMI 29.5
== END 2023-08-26 15:08 | disposition home or self-care (01) ==
PROVIDERS: PCP Internal Medicine; Visit Provider Nurse Practitioner Family
DX: I31.1 Chronic constrictive pericarditis (principal); I31.39 Other pericardial effusion (noninflammatory); I10 Essential (primary) hypertension; R06.09 Other forms of dyspnea; F17.200 Nicotine dependence, unspecified, uncomplicated; I77.810 Thoracic aortic ectasia
CPT/HCPCS: 99214

== ENCOUNTER → 2023-08-26 14:26 | Outpatient (BNVA) | payer MEDICARE, SELFPAY | PROVIDERS: PCP Internal Medicine; Visit Provider Nurse Practitioner Family | DX: I31.1 Chronic constrictive pericarditis (principal); I31.39 Other pericardial effusion (noninflammatory); I10 Essential (primary) hypertension; I77.810 Thoracic aortic ectasia; R06.09 Other forms of dyspnea; F17.210 Nicotine dependence, cigarettes, uncomplicated | CPT/HCPCS: 99212 ==

== ENCOUNTER 2024-04-21 10:56 | Inpatient (IN) | payer MEDICARE, SELFPAY ==
[2024-04-21] VITALS (8 sets, daily range): BP systolic 132–156; BP diastolic 69–94; PULSE 74–88; RESP 16–23; TEMP 36.6–36.8; O2SAT 90–98; BMI 30.4
--- NOTE | ~2024-04-21 | MR_ITS ---
EXAMINATION: MR BRAIN WITHOUT CONTRAST CLINICAL INFORMATION: TIA/stroke COMPARISON: Same-day CT head and CT angiogram of the head and neck TECHNIQUE: MRI of the brain was obtained using routine sequences without contrast. FINDINGS: There is no reduced diffusion to suggest acute infarct. Susceptibility weighted sequence is within normal limits. No mass effect, extra-axial collection, midline shift, or other herniation. Expanded, empty sella turcica. Generalized cerebral volume loss with associated ventricular and sulcal prominence. Scattered periventricular and subcortical T2/FLAIR hyperintense foci are nonspecific but likely represent chronic microvascular ischemic change. Prominent retrocerebellar CSF space. Intracranial flow voids are preserved. Trace ethmoid air cell mucosal thickening. The mastoid air cells are well-aerated. No focal expansile or destructive osseous lesion. MR/MR head/brain wo con IMPRESSION: No acute infarction. Generalized cerebral volume loss with mild chronic microvascular ischemic change. Expanded, empty sella turcica.
--- NOTE | ~2024-04-21 | CT_ITS ---
EXAMINATION: CT HEAD WITHOUT CONTRAST (STROKE PROTOCOL) CLINICAL INFORMATION: Stroke protocol. Left hemiparesis, speech disturbance COMPARISON: CT scan of brain on 12/04/2021 TECHNIQUE: Contiguous axial imaging was performed from the skull base to vertex without intravenous administration of contrast. This CT examination was performed using dose optimization techniques as appropriate, variously including the following: *Automated exposure control *Adjustment of mA and/or kV according to patient size (this includes techniques or standardized protocols for targeted exams where dose is matched to indication/reason for exam; i.e. extremities or head) *Use of iterative reconstruction technique DLP: 734 mGy-cm FINDINGS: Ventricles, sulci and cisterns are abnormally dilated for the patient's age. There is no midline shift, no abnormal intra- or extra- axial fluid accumulation. Purvis and white matter differentiation is normal. Bone window images show no evidence of skull fracture. CT/CT head for stroke IMPRESSION: 1. Interval progression of age related cerebral atrophy and ventriculomegaly. 2. No intracranial hemorrhage or skull fracture is seen. 3. No evidence of space occupying lesion could be found. 4. The current plain CT scan of the brain shows no diagnostic evidence of acute cerebral infarction. This critical result was discussed with Dr. Maury Govea at 1136 hours on 04/21/2024. It was ascertained that the content and urgency of the report was understood at the time of direct communication.
--- NOTE | ~2024-04-21 | CT_ITS ---
EXAMINATION: CTA NECK WITH CONTRAST (STROKE) CTA BRAIN WITH CONTRAST (STROKE) CLINICAL INFORMATION: Suspect acute stroke. Assess for major vessel occlusion. Please call report. COMPARISON: CT head 04/21/2024, CT angiography head and neck 12/04/2021. TECHNIQUE: CTA of the head and neck was performed in the axial plane from the mediastinum to the skull vertex using 70 mL Omnipaque 350 intravenous contrast. Additional reformatted multiplanar images including maximum intensity projection MIP images are generated on the CT workstation. This CT examination was performed using dose optimization techniques as appropriate, variously including the following: *Automated exposure control *Adjustment of mA and/or kV according to patient size (this includes techniques or standardized protocols for targeted exams where dose is matched to indication/reason for exam; i.e. extremities or head) *Use of iterative reconstruction technique DLP: 1648 mGy-cm FINDINGS: The degree of stenosis determined by criteria similar to NASCET. IV contrast-enhanced CT the head: Mild diffuse commensurate prominence of ventricles and sulci is noted. The ventricles and sulci demonstrate minimal diffuse commensurate prominence, within expected limits of normal anatomic variation. A 6 mm ovoid well-circumscribed low-density focus is present in the region of the anterior limb of the right internal capsule corresponding to a similar focus noted contemporaneously on the comparison MRI of 05/30/2017. This finding has the appearance of an incidental dilated perivascular space and demonstrates no marginal gliosis on the comparison MRI. The orbits and globes are normal in appearance. No significant opacification of the visualized paranasal sinuses, mastoid air cells and middle ear cavities. CT angiography neck: Ostial ectasia with eccentric calcific and noncalcific plaque is again noted the origin of the brachiocephalic artery, unchanged compared with 12/04/2021 conventional branching anatomy of the great vessels in relation to the transverse aorta is visualized. Scattered nonocclusive calcific plaques are present in the immediate proximal segments of the great vessels the visualized subclavian arteries are patent. *Left carotid bulb demonstrates mild (less than 50% stenosis secondary to concentric calcific and noncalcific atherosclerotic plaque. A newly identified ulcerative atherosclerotic plaque is present within the carotid bulb extending into the origin of the left internal carotid artery measuring 3.5 mm diameter (series 502 image 542). This finding is new compared with 12/04/2021. The right carotid bulb demonstrates nonocclusive concentric calcific and noncalcific atherosclerotic plaque. The vertebral arteries are codominant. Nonocclusive ostial calcifications are associated with the origins of the left and right vertebral arteries. No stenoses or occlusions of the cervical vertebral artery segments noted. CT angiography head: type origin of the right posterior cerebral artery is noted. Nonocclusive mild segmental calcific atherosclerosis is visualized in the cavernous portions of the internal carotid arteries. No left or right middle cerebral artery M2 segment occlusions are identified. No large vessel intracranial occlusions visualized. No intracranial aneurysms noted. Unchanged marked tendons stenoses involving the junction of the P2 and P3 segments of the left posterior cerebral artery. The visualized lung apices demonstrate centrilobular and paraseptal emphysematous changes. Arch visualization is made of a moderate posterior broad-based disc-osteophyte complex at C6-C7 which results in bilateral foraminal stenoses in at least mild central stenosis. CT/CT angio head neck stroke IMPRESSION: CT head: *No acute intracranial abnormalities identified. No intracranial hemorrhage or acute infarcts. CT angiography neck: *Newly identified ulcerative atherosclerotic plaque measuring 3 mm diameter at the origin of the left internal carotid artery. No associated occlusion or approximate thrombus. This finding is new compared with 12/04/2021. *Nonocclusive, nonulcerative mixed calcific and noncalcific plaque at the origin of the right internal carotid artery unchanged compared with 12/04/2021. *Centrilobular emphysema noted in the incidentally visualized lung apices. *C6-C7 bilateral foraminal stenoses and mild central stenosis secondary to chronic spondylosis. CT angiography head: *No intracranial large vessel occlusions. *Nonocclusive segmental calcific atherosclerosis of the cavernous portions of the internal carotid arteries. *Unchanged marked tendons stenoses involving the junction of the P2 and P3 segments of the left posterior cerebral artery. This critical result regarding no acute intracranial abnormalities and no large vessel occlusions was discussed with Maury Govea MD by telephone at 04/21/2024 11:45 AM and it was ascertained that the content and urgency of the report was understood at the time of direct communication. This result regarding the left internal carotid artery ulcerative plaque was discussed with Maury Govea MD by telephone at 04/21/2024 11:57 AM and it was ascertained that the content and urgency of the report was understood at the time of direct communication.
--- NOTE | 2024-04-21 11:00 | ED.WEAKNESS ---
HPI - Weakness General Chief complaint: Stroke Stated complaint: stroke alert Source: patient and EMS Mode of arrival: EMS Limitations: no limitations History of Present Illness ED Provider: Dr. Govea HPI Narrative: 30 minutes of left sided numbness and speech difficulty, no blood thinners Complaint: numbness Onset (ago): minute(s) Duration: improved Severity: mild Related Data Home Medications ?Medication ?Instructions ?Recorded ?Confirmed ibuprofen 200 mg tablet 400 mg PO Q6H PRN Headache 11/25/21 02/27/23 sumatriptan succinate 50 mg tablet 1 tab PO DAILY MRX1 PRN Headache 11/25/21 02/27/23 trazodone 50 mg tablet 1 tab PO BEDTIME 11/25/21 02/27/23 umeclidinium 62.5 mcg-vilanterol 1 puff inhalation DAILY 11/25/21 02/27/23 25 mcg/actuation powdr for inhalation (Anoro Ellipta) hydrochlorothiazide 25 mg tablet 25 mg PO DAILY 12/24/21 02/27/23 ipratropium 20 mcg-albuterol 100 inhalation 08/21/22 02/27/23 mcg/actuation mist for inhalation (Combivent Respimat) folic acid 1 mg tablet 1 mg PO DAILY 08/26/23 Previous Rx's ?Medication ?Instructions ?Recorded amlodipine 5 mg tablet 5 mg PO DAILY #90 tabs 04/08/23 Allergies Allergy/AdvReac Type Severity Reaction Status Date / Time No Known Allergies Allergy Verified 04/21/24 11:15 Review of Systems Review of Systems: Yes all other systems are reviewed and are negative Neurologic: Denies Sensory deficit (Neuro) FOR[facility]LY [facility], [facility] Past Medical History Medical History Supplemental oxygen dependent Alcohol dependence Tobacco use disorder Pneumonia Sepsis Chronic respiratory failure Pleural effusion Acute pericardial effusion Chest pain HTN (hypertension) COPD (chronic obstructive pulmonary disease) Surgical History History of eyelid surgery History of appendectomy History of tonsillectomy H/O hernia repair Family History Family History Mother No problems noted. Father No problems noted. Brother Gout Social History Social History Household Members: None Housing: House Do you presently have visiting nurse or other home services: No Alcohol intake: current Alcohol intake frequency: 3 or more drinks per day Alcohol type: hard liquor Patient Tobacco Use Status: Current everyday Tobacco user Tobacco use type: Cigarette Cigarette Packs Per Day: 1.5 Cigarettes Per Day: 30 Years Smoked: 52 +/- Smoked in Last 30 Days: Yes Use of substances other than those prescribed or required for medical reasons: Yes Substance Use Type: Marijuana Advance Directives: No Advance Directives Information Provided: Yes service: No Current occupational status: retired Physical Exam Vital Signs: Vital Signs: Last Vital Signs Temp 98 F 04/21/24 11:06 Pulse 80 04/21/24 14:13 Resp 19 04/21/24 11:52 BP 132/82 04/21/24 14:13 Pulse Ox 94 04/21/24 14:13 O2 Del Method Room Air 04/21/24 11:48 BMI result Body Mass Index 30.4 Const: General: healthy appearing Nutritional Appearance: average body habitus Orientation/consciousness: oriented to person and patient oriented x3 Limitations: no limitations HEENT: Head: Yes normal to inspection Ears: external ears normal General nose exam: Normal external nose present Mouth: Normal oral and palatal mucosa present and oropharynx normal Throat: Yes posterior oropharynx normal Eyes: General: appearance normal, both eyes and all related structures Neck: Other: supple Neck: Yes normal visual inspection Chest: Chest palpation & inspection: normal inspection of the chest Resp: Auscultation: clear to auscultation bilaterally Cardio: Jugular venous distension: no JVD Rate: regular rate Rhythm: regular rhythm Heart sounds: S1 normal heart sound present and S2 normal heart sound present GI: Inspection: Yes normal to inspection Palpation (GI): Soft to palpation, nontender and No hepatosplenomegaly present Auscultation: normal bowel sounds : General: Yes no CVA tenderness Back/Spine/Pelvis: Back: no CVA tenderness Skin: Other: diffuse rosacia and spider angiomata Neuro: General: oriented to person and patient oriented x3 Cranial nerves: Yes CN's II-XII intact bilaterally Motor exam (neuro): 5/5 motor strength present throughout Sensory Exam: No Sensory deficit (Neuro) Extrem: General: Yes normal to inspection Psych: Appearance: grossly normal NIH Stroke Scale Internal: Initial- Upon Arrival Level of Consciousness: Alert Level of Consciousness Questions: Answers both questions correctly Level of Consciousness Commands: Performs both tasks correctly Best Gaze: Normal Visual: No visual loss Facial Palsy: Normal Motor Arm (Right): No drift Motor Arm (Left): No drift Motor Leg (Right): No drift Motor Leg (Left): No drift Limb Ataxia: Absent Sensory: Normal Best Language: No aphasia Dysarthia: Mild to moderate dysarthria Extinction and Inattention: No abnormality Score: 1 Course Reevaluation(s) Reevaluation #1: discussed with radiology, atrophy nothing acute Time: 11:37 Reevaluation #2: Zak: no LVO Time: 11:49 Reevaluation #3: Zak: left sided carotid ulceration. I spent 40 minutes of critical care, with interventions, assessments, speaking to patient, consultants, and family. Time: 12:55 Medications Administered Generic Name Dose Route Start Last Admin Trade Name Freq PRN Reason Stop Dose Admin Enoxaparin Sodium 40 mg 04/21/24 15:00 04/21/24 14:33 Enoxaparin Sodium 40 Mg/0.4 Ml Syringe SUBCUT 40 mg Q24H JI Administration Nicotine 21 mg 04/21/24 13:55 04/21/24 14:35 Nicotine 21 Mg Patch.Td24 TRANSDERMA 21 mg DAILY JI Administration Discontinued Medications Generic Name Dose Route Start Last Admin Trade Name Freq PRN Reason Stop Dose Admin Aspirin 325 mg 04/21/24 12:52 04/21/24 13:05 Aspirin Enteric Coated 325 Mg Tablet. PO 04/21/24 12:53 325 mg ONCE ONE Administration Iohexol 100 ml 04/21/24 11:36 04/21/24 11:36 Iohexol 350 Mg/Ml 100 Ml Infus..Btl IV 04/21/24 11:37 70 ml ONCE ONE Administration Medical Decision Making Differential Diagnosis Differential Diagnoses: The differential diagnosis associated with the presentation includes (Stroke, cerebral bleed, dehydration, alcohol intoxication) Admission/Observation Consideration of admission/observation: Escalation of care including admission/observation considered (upon arrival patient considered for admission) Consult Healthcare Provider Management of the patient was discussed with: Hospitalist and Nurse Navigator (sample coordinator and Dr. Garcias) Lab Data 04/21/24 11:47 04/21/24 11:47 Labs: Lab Results 04/21/24 04/21/24 04/21/24 Range/Units 11:01 11:02 11:47 WBC 9.7 (4.8-10.8) X10*3/uL RBC 4.90 D (4.60-5.80) X10*6/uL Hgb 16.8 D (14.0-18.0) g/dl Hct 48.2 D (42.0-52.0) % MCV 98.4 H (80.0-98.0) fL MCH 34.3 H (27.0-33.0) pg MCHC 34.9 (31.0-36.0) g/dl RDW 13.2 (11.0-16.0) % Plt Count 237 D (160-400) X10*3/uL MPV 9.2 L (9.4-12.4) fL Immature Gran % (Auto) 0.3 (0.0-0.4) % Neut % (Auto) 58.1 (45-73) % Lymph % (Auto) 25.1 (20-40) % [place] % (Auto) 13.4 H (2-11) % Eos % (Auto) 1.9 (0-4) % Baso % (Auto) 1.2 (0-2) % Lymph # (Auto) 2.4 (1.2-4.9) X10*3/uL [place] # (Auto) 1.3 H (0.1-1.2) X10*3/uL Eos # (Auto) 0.2 (0.0-0.4) X10*3/uL Baso # (Auto) 0.1 (0.0-0.2) X10*3/uL Abs Immat Gran (auto) 0.03 (0.00-0.03) X10*3/uL Absolute Neuts (auto) 5.6 (2.0-8.3) x10*3/uL Absolute Nucleated RBC 0.000 (0.0-0.012) X10*3/uL Nucleated RBC % (auto) 0.0 (0.0-0.2) /100WBC PT 12.2 (11.1-13.3) SEC Whole Blood PT 14.1 H (11.1-13.5) sec INR 1.0 (0.9-1.1) Whole Blood INR 1.2 H (0.9-1.1) APTT 32.4 (26.0-36.8) SEC Sodium 138 (135-145) mmol/L Potassium 3.7 (3.3-5.1) mmol/L Chloride 101 (96-108) mmol/L Carbon Dioxide 26 (22-29) mmol/L Anion Gap 15 (12-20) BUN 12 (9-16) mg/dL Creatinine 0.80 (0.5-1.4) mg/dL Estim Creat Clear Calc 104.1 Estimated GFR > 60 POC Glucose 128 H (60-115) mg/dL Random Glucose 104 (60-115) mg/dL Estimat Average Glucose 126 mg/dL Hemoglobin A1c % 6.0 (<6.0) % Calcium 9.3 (8.4-10.2) mg/dL Troponin I High Sens < 2.7 (<3.5-35.0) ng/L Triglycerides 246 H (<150) mg/dL Cholesterol 215 H (<200) mg/dL LDL Cholesterol, Calc 112 H (<100) mg/dL HDL Cholesterol 54 (>40) mg/dL Ethyl Alcohol < 10 mg/dL Independent Interpretation I performed an independent interpretation of an: EKG (sinus 80, no st or twave changes) and CT Scan (head: no bleed or mass) Radiology Impression Discussion of test interpretation with radiology: I discussed test interpretation with the radiologist (The radiologist discussed both Head Cts with me) Independent Historian Clinical information obtained from an independent historian. History obtained from or confirmed by: EMS Tests considered The following testing was considered but not selected: MRI: patient will receive MRI in patient Chronic Conditions Patient?s care impacted by: Hypertension and Other (smoker) Discharge Plan Discharge Clinical Impression: Transient cerebral ischemia Patient Disposition: Admitted As Inpatient
--- NOTE | 2024-04-21 11:01 | ECG_ITS ---
Test Reason : STROKE Blood Pressure : / mmHG Vent. Rate : 082 BPM Atrial Rate : 082 BPM P-R Int : 150 ms QRS Dur : 094 ms QT Int : 402 ms P-R-T Axes : 068 -72 061 degrees QTc Int : 469 ms Normal sinus rhythm Left axis deviation Incomplete right bundle branch block Abnormal ECG When compared with ECG of 25-NOV-2021 08:23, QRS axis Shifted left Referred By: Maury Govea Electronically Signed By:BLANCA MATA MD
[2024-04-21 11:07] LABS: Prothrombin Time Whole Bld POC 14.1 sec (11.1-13.5); ~PT, ~INR - Anti Coag Clinic 1.2 (0.9-1.1)
[2024-04-21 11:08] LABS: Glucose, Whole Blood 128 mg/dL (60-115)
[2024-04-21] MEDS: iohexoL 350 MG/ML 100 ML INFUS..BTL IV (11:36)
--- NOTE | 2024-04-21 11:37 | PC.NURSE ---
pt speeech has improved, states it is 'back to normal , states he is 'back to normal except his fingertips on the l hand feel 'funny
--- NOTE | 2024-04-21 11:40 | MHC.STROKE ---
Called to ED for stroke alert. Pt in CT scan. Primary RN reports that patient was out cutting lawns when he had a sudden funny feeling in his mouth, some left sided tingling to his arm, and funny speech per patient. ED provider scored patient a 1 on the NIH scale due to language disturbance. No other deficits noted by provider. Upon my assessment, patient is awake, alert and oriented x 3. Speech noted to be slow however was able to identify all pictures on the naming card and was able to describe scenario on card. No droop noted. Hand grasp equal. Tongue midline. No palmar drift bilateral leg strength. Stroke Education provided to patient. Discussed ED process in detail. Pt agreeable to plan. Will continue to assist as needed.
--- NOTE | 2024-04-21 11:44 | MHC.EDTECH ---
Dalia called in for Dr. Valdivia @ 11:45am from [facility] to speak with Dr. Govea
[2024-04-21 11:51] LABS: MANUAL DIFF FLAG NO
[2024-04-21 11:57] LABS: Prothrombin Time 12.2 SEC (11.1-13.3)
[2024-04-21 12:00] LABS: Partial Thromboplastin Time 32.4 SEC (26.0-36.8); Stroke Lab Use COMPLETE
--- NOTE | 2024-04-21 12:03 | MHC.EDTECH ---
Trachea from [facility] calling for Dr. Mckoy to speak to Dr. Govea @ 12pm
[2024-04-21 12:06] LABS: Anion Gap 15 (12-20); Blood Urea Nitrogen 12 mg/dL (9-16); Calcium 9.3 mg/dL (8.4-10.2); Carbon Dioxide 26 mmol/L (22-29); Chloride 101 mmol/L (96-108); Creatinine Clr Calc Pharmacy 104.1; Estimated Glomerular Filt Rate > 60; Ethanol < 10 mg/dL; Glucose Random 104 mg/dL (60-115); Potassium 3.7 mmol/L (3.3-5.1); Sodium 138 mmol/L (135-145)
[2024-04-21 12:09] LABS: Basophils Absolute Auto 0.1 X10*3/uL (0.0-0.2); Basophils Percent Auto 1.2 % (0-2); Eosinophils Absolute Auto 0.2 X10*3/uL (0.0-0.4); Eosinophils Percent Auto 1.9 % (0-4); Hematocrit 48.2 % (42.0-52.0); Hemoglobin 16.8 g/dl (14.0-18.0); Imm Gran Abs Auto 0.03 X10*3/uL (0.00-0.03); Imm Gran Pct Auto 0.3 % (0.0-0.4); Lymphocytes Absolute Auto 2.4 X10*3/uL (1.2-4.9); Lymphocytes Percent Auto 25.1 % (20-40); Mean Corpuscular HGB Conc 34.9 g/dl (31.0-36.0); Mean Corpuscular Hemoglobin 34.3 pg (27.0-33.0); Mean Corpuscular Volume 98.4 fL (80.0-98.0); Mean Platelet Volume 9.2 fL (9.4-12.4); Monocytes Absolute Auto 1.3 X10*3/uL (0.1-1.2); Monocytes Percent Auto 13.4 % (2-11); Neutrophils Absolute Auto 5.6 x10*3/uL (2.0-8.3); Neutrophils Percent Auto 58.1 % (45-73); Platelet Count 237 X10*3/uL (160-400); Red Cell Distribution Width 13.2 % (11.0-16.0); White Blood Count 9.7 X10*3/uL (4.8-10.8)
[2024-04-21 12:13] LABS: Troponin-I High Sensitivity < 2.7 ng/L (<3.5-35.0)
[2024-04-21] MEDS: Aspirin Enteric Coated 325 MG TABLET.DR PO (13:05)
--- NOTE | 2024-04-21 13:27 | P.CNNE_ITS ---
History of Present Illness Data of Consult Service Date: 04/21/24 Primary Care Provider: Venancio Helm III, MD [facility] Reason for consult: TIA This is a 68 yr old man who presented with 30 minutes of left sided numbness and Tingling including the face and some speech difficulty which has mostly resolvedIn 2-3 hours except for slight residue with tingling in the fourth and fifth fingers of the left hand. At its peak , his stroke scale was <5/42 CTA of neck shows an ulcerated plaque on the left CCA-ICA with 50 % stenosis. Unchanged from 2021 severe tandem stenosis of left [employer] P2-3 segment Review of Systems 2 Review of Systems: General: No fevers, malaise, unintentional weight loss HEENT: No blurred vision, diplopia. No sore throat, nasal congestion, rhinorrhea, sinus pain, ear pain Cardiovascular: No chest pain, palpitations, or leg edema Respiratory: No shortness of breath, wheezing, cough GI: No abdominal pain, nausea, vomiting, diarrhea, constipation, melena, hematochezia : No dysuria, hematuria, increased urinary frequency, decreased urinary output MSK: No myalgia, back pain Neuro: +slurred speech, +left sided paresthesias. No headaches, weakness Skin: No rashes or lesions Yes all other systems are reviewed and are negative Neurologic: Denies Sensory deficit (Neuro) FORMERLY [facility], [facility] Past Medical History Medical History Supplemental oxygen dependent Alcohol dependence Tobacco use disorder Pneumonia Sepsis Chronic respiratory failure Pleural effusion Acute pericardial effusion Chest pain HTN (hypertension) COPD (chronic obstructive pulmonary disease) Family History Family History Mother No problems noted. Father No problems noted. Brother Gout Surgical History Surgical History History of eyelid surgery History of appendectomy History of tonsillectomy H/O hernia repair Social History Social History Household Members: None Housing: House Do you presently have visiting nurse or other home services: No Alcohol intake: current Alcohol intake frequency: 3 or more drinks per day Alcohol type: hard liquor Patient Tobacco Use Status: Current everyday Tobacco user Tobacco use type: Cigarette Cigarette Packs Per Day: 1.5 Cigarettes Per Day: 30 Years Smoked: 52 +/- Smoked in Last 30 Days: Yes Use of substances other than those prescribed or required for medical reasons: Yes Substance Use Type: Marijuana Advance Directives: No Advance Directives Information Provided: Yes service: No Current occupational status: retired Meds Allergies Allergy/AdvReac Type Severity Reaction Status Date / Time No Known Allergies Allergy Verified 04/21/24 11:15 Active Medications: Current Medications Acetaminophen (Acetaminophen 325 Mg Tablet) 650 mg PO Q6H PRN PRN Reason: Pain, Mild (Pain Scale 1-3) Aspirin (Aspirin Enteric Coated 81 Mg Tablet.Dr) 81 mg PO DAILY JI Atorvastatin Calcium (Atorvastatin Calcium 80 Mg Tablet) 80 mg PO DAILY JI Magnesium Hydroxide (Milk Of Magnesia 30 Ml Oral.Susp) 30 ml PO DAILY PRN PRN Reason: Constipation Sodium Chloride (0.9 % Sodium Chloride Flush 3 Ml Syringe) 3 ml IVFLUSH QSHIFT JI Home Medications ?Medication ?Instructions ?Recorded ?Confirmed ?Last Taken ?Type ibuprofen 200 mg tablet 400 mg PO Q6H PRN Headache 11/25/21 02/27/23 Unknown History sumatriptan succinate 50 mg tablet 1 tab PO DAILY MRX1 PRN Headache 11/25/21 02/27/23 Unknown History trazodone 50 mg tablet 1 tab PO BEDTIME 11/25/21 02/27/23 11/24/21 History umeclidinium 62.5 mcg-vilanterol 1 puff inhalation DAILY 11/25/21 02/27/23 11/24/21 History 25 mcg/actuation powdr for inhalation (Anoro Ellipta) hydrochlorothiazide 25 mg tablet 25 mg PO DAILY 12/24/21 02/27/23 Unknown History ipratropium 20 mcg-albuterol 100 inhalation 08/21/22 02/27/23 Unknown History mcg/actuation mist for inhalation (Combivent Respimat) folic acid 1 mg tablet 1 mg PO DAILY 08/26/23 Unknown History Physical Exam 2 Vital Signs: Vital Signs: Last Vital Signs Temp 98 F 04/21/24 11:06 Pulse 80 04/21/24 11:52 Resp 19 04/21/24 11:52 BP 132/82 04/21/24 11:52 Pulse Ox 94 04/21/24 11:52 O2 Del Method Room Air 04/21/24 11:48 BMI result Body Mass Index 30.4 Const: General: healthy appearing Nutritional Appearance: average body habitus Orientation/consciousness: oriented to person and patient oriented x3 Limitations: no limitations HEENT: Head: Yes normal to inspection Ears: external ears normal General nose exam: Normal external nose present Mouth: Normal oral and palatal mucosa present and oropharynx normal Throat: Yes posterior oropharynx normal Eyes: General: appearance normal, both eyes and all related structures Neck: Other: supple Neck: Yes normal visual inspection Chest: Chest palpation & inspection: normal inspection of the chest Resp: Auscultation: clear to auscultation bilaterally Cardio: Jugular venous distension: no JVD Rate: regular rate Rhythm: r egular rhythm Heart sounds: S1 normal heart sound present and S2 normal heart sound present GI: Inspection: Yes normal to inspection Palpation (GI): Soft to palpation, nontender and No hepatosplenomegaly present Auscultation: normal bowel sounds : General: Yes no CVA tenderness Back/Spine/Pelvis: Back: no CVA tenderness Skin: Other: diffuse rosacia and spider angiomata General skin exam: no rashes or lesions noted Neuro: Other: Normal speech and language functions. Muscle tone and strength are normal in all 4 extremities. Cranial nerves are normal. There is some subjective sensory alteration in the fourth and fifth fingers of the left hand. Reflexes symmetrical, and plantar response are flexor General: oriented to person and patient oriented x3 Cranial nerves: Yes CN's II-XII intact bilaterally Motor exam (neuro): 5/5 motor strength present throughout Sensory Exam: No Sensory deficit (Neuro) Extrem: General: Yes normal to inspection Psych: Appearance: grossly normal Results Labs 04/21/24 11:47 04/21/24 11:47 Labs: Short CBC 04/21/24 Range/Units 11:47 WBC 9.7 (4.8-10.8) X10*3/uL Hgb 16.8 D (14.0-18.0) g/dl Hct 48.2 D (42.0-52.0) % Plt Count 237 D (160-400) X10*3/uL BMP 04/21/24 11:47 Sodium 138 Potassium 3.7 Chloride 101 Carbon Dioxide 26 BUN 12 Creatinine 0.80 Calcium 9.3 Assessment and Plan (1) Transient cerebral ischemia: Status: Acute Right hemisphere TIA, possibly small thalamic infarct. Rule out multiple embolic phenomena due to language symptoms as well. Recommendation: MRI of the brain.Echocardiogram with bubble study. Aspirin 81 mg a day, atorvastatin 80 mg. Continue blood pressure medicines Plan 68 year old male with history of pericardial effusion, ascending aortic aneurysm, htn, copd with nocturnal hypoxemia on 2L supplemental O2 at bedtime, alcohol use disorder who is a current 1.5 pack per day cigarette smoker admitted for further management of TIA. #Acute TIA -CT head negative for acute intracranial abn. CTA neck shows new 3mm ulceration of left carotid without thrombus or occlusion. Other stable chronic findings -Given 325mg asa in ED, continue 81mg daily per neuro (no DAPT at this time) -MRi brain -echo -cardiac diet (passed bedside swallow) -stroke edu, neurochecks -lipid profile, atorvastatin 80mg daily -check hgb a1c -neuro consult -admit to med/tele #HTN -hold antihypertensives at this time to allow for permissive htn #COPD with nocturnal hypoxemia -no exacebation -continue maintenance inhalers, albuterol prn -2L supplemental O2 at bedtime #Alcohol use disorder -3 drinks per night, no evidence of w/d at this time -MOnitor on CIWA, initiate phenobarbital if evidence of w/d -PO thiamine and folic acid #Cigarette smoking -cessation advised -patch and gum for NRT DVT prophylaxis- lovenox full code pt requires inpt stay at least 2 midnights for management of TIA requiring close monioring for symptom progression, echo, MRI, and expert consulation Procedures Date of Service Date of Service: 04/21/24
--- NOTE | 2024-04-21 13:48 | PM.IMHP ---
History of Present Illness Date of Service: 04/21/24 Attending physician on admission: Briana Montes Chief Complaint: left sided facial numbness , slurred speech 68 year old male with history of pericardial effusion, ascending aortic aneurysm, htn, copd with nocturnal hypoxemia on 2L supplemental O2 at bedtime, alcohol use disorder who is a current 1.5 pack per day cigarette smoker presented to the ED earlier today via EMS for evaluation stroke like symptoms. He reports approximately 1030 am developed expressive aphasia, left lower facial numbness and LUE numbness. Denies facial droop, focal weakness, gait instability, confusion, visual changes, headache, chest pain. Symptoms present on arrival to the ED, but have fully resolved at time of admission. Reports he has chronic pupil asymmetry and reports there is suspicion of prior stroke but this has not been confirmed. He reports drinking 3 measured alcoholic beverages nightly, last drink last night. Denies hx withdrawal/seizures. No drug use. On arrival, VSS. NO leukocytosis or anemia. Renal function and lytes normal. Lipid panel pending. Ethyl etoh level undetectable. Head CT shows age-related cerebral atrophy and ventriculomegaly but no acute intracranial abnormality. CTA of the head/neck shows newly identified ulcerative atherosclerotic plaque measuring 3 mm in diameter at the origin of the left internal carotid artery but no associated occlusion or approximate thrombus. There were also unchanged findings of calcified and noncalcified plaques within the right internal carotid artery and nonocclusive segmental calcific atherosclerosis of the cavernous portions of the internal carotid arteries. EKG shows NSR, rate 82 with incomplete right bundle-branch block. In the ED, has received aspirin. Admit for further management of TIA. Review of Systems Review of Systems: General: No fevers, malaise, unintentional weight loss HEENT: No blurred vision, diplopia. No sore throat, nasal congestion, rhinorrhea, sinus pain, ear pain Cardiovascular: No chest pain, palpitations, or leg edema Respiratory: No shortness of breath, wheezing, cough GI: No abdominal pain, nausea, vomiting, diarrhea, constipation, melena, hematochezia : No dysuria, hematuria, increased urinary frequency, decreased urinary output MSK: No myalgia, back pain Neuro: +slurred speech, +left sided paresthesias. No headaches, weakness Skin: No rashes or lesions [facility] Medical History Supplemental oxygen dependent Alcohol dependence Tobacco use disorder Pneumonia Sepsis Chronic respiratory failure Pleural effusion Acute pericardial effusion Chest pain HTN (hypertension) COPD (chronic obstructive pulmonary disease) Family History Mother No problems noted. Father No problems noted. Brother Gout Surgical History History of eyelid surgery History of appendectomy History of tonsillectomy H/O hernia repair Social History Household Members: None Housing: House Do you presently have visiting nurse or other home services: No Alcohol intake: current Alcohol intake frequency: 3 or more drinks per day Alcohol type: hard liquor Patient Tobacco Use Status: Current everyday Tobacco user Tobacco use type: Cigarette Cigarette Packs Per Day: 1.5 Cigarettes Per Day: 30 Years Smoked: 52 +/- Smoked in Last 30 Days: Yes Use of substances other than those prescribed or required for medical reasons: Yes Substance Use Type: Marijuana Advance Directives: No Advance Directives Information Provided: Yes service: No Current occupational status: retired [employer] Allergies Allergy/AdvReac Type Severity Reaction Status Date / Time No Known Allergies Allergy Verified 04/21/24 11:15 Active Medications: Current Medications Acetaminophen (Acetaminophen 325 Mg Tablet) 650 mg PO Q6H PRN PRN Reason: Pain, Mild (Pain Scale 1-3) Aspirin (Aspirin Enteric Coated 81 Mg Tablet.Dr) 81 mg PO DAILY JI Atorvastatin Calcium (Atorvastatin Calcium 80 Mg Tablet) 80 mg PO DAILY JI Magnesium Hydroxide (Milk Of Magnesia 30 Ml Oral.Susp) 30 ml PO DAILY PRN PRN Reason: Constipation Sodium Chloride (0.9 % Sodium Chloride Flush 3 Ml Syringe) 3 ml IVFLUSH QSHIFT JI Home Medications ?Medication ?Instructions ?Recorded ?Confirmed ?Last Taken ?Type ibuprofen 200 mg tablet 400 mg PO Q6H PRN Headache 11/25/21 02/27/23 Unknown History sumatriptan succinate 50 mg tablet 1 tab PO DAILY MRX1 PRN Headache 11/25/21 02/27/23 Unknown History trazodone 50 mg tablet 1 tab PO BEDTIME 11/25/21 02/27/23 11/24/21 History umeclidinium 62.5 mcg-vilanterol 1 puff inhalation DAILY 11/25/21 02/27/23 11/24/21 History 25 mcg/actuation powdr for inhalation (Anoro Ellipta) hydrochlorothiazide 25 mg tablet 25 mg PO DAILY 12/24/21 02/27/23 Unknown History ipratropium 20 mcg-albuterol 100 inhalation 08/21/22 02/27/23 Unknown History mcg/actuation mist for inhalation (Combivent Respimat) folic acid 1 mg tablet 1 mg PO DAILY 08/26/23 Unknown History Physical Exam Vital Signs and Narrative: Vital Signs: Last Vital Signs Temp 98 F 04/21/24 11:06 Pulse 80 04/21/24 11:52 Resp 19 04/21/24 11:52 BP 132/82 04/21/24 11:52 Pulse Ox 94 04/21/24 11:52 O2 Del Method Room Air 04/21/24 11:48 BMI result Body Mass Index 30.4 Constitutional - Awake and Alert, No apparent distress Eyes - PERRLA, EOMI Cardiovascular - S1S2, RRR, No edema Respiratory - Normal lung expansion, Normal respiratory effort, No respiratory distress, CTA bilaterally Gastrointestinal - NT / ND; +BS; No rebound or guarding Extremities - no calf tenderness bilaterally, no swelling Skin - Warm/Dry Neurological - Alert & oriented x3, pupil asymmetry (L 2mm, R 3mm reactive to light, pt reports chronic), otherwise CN II-XII in tact, 5/5 strength BUE and BLE, sensation in tact Psychological - Appropriate affect Results Labs 04/21/24 11:47 04/21/24 11:47 Labs: Laboratory Results - last 24 hr 04/21/24 04/21/24 04/21/24 11:01 11:02 11:47 MCV 98.4 H MCH 34.3 H MCHC 34.9 RDW 13.2 Plt Count 237 D MPV 9.2 L Immature Gran % (Auto) 0.3 Neut % (Auto) 58.1 Lymph % (Auto) 25.1 Cassia % (Auto) 13.4 H Eos % (Auto) 1.9 Baso % (Auto) 1.2 Lymph # (Auto) 2.4 Cassia # (Auto) 1.3 H Eos # (Auto) 0.2 Baso # (Auto) 0.1 Abs Immat Gran (auto) 0.03 Absolute Neuts (auto) 5.6 Absolute Nucleated RBC 0.000 Nucleated RBC % (auto) 0.0 PT 12.2 Whole Blood PT 14.1 H INR 1.0 Whole Blood INR 1.2 H APTT 32.4 Anion Gap 15 Estim Creat Clear Calc 104.1 Estimated GFR > 60 POC Glucose 128 H Random Glucose 104 Calcium 9.3 Troponin I High Sens < 2.7 Ethyl Alcohol < 10 Imaging Radiologist's Impressions: Impressions Head CT 04/21/24 11:11 IMPRESSION: 1. Interval progression of age related cerebral atrophy and ventriculomegaly. 2. No intracranial hemorrhage or skull fracture is seen. 3. No evidence of space occupying lesion could be found. 4. The current plain CT scan of the brain shows no diagnostic evidence of acute cerebral infarction. This critical result was discussed with Dr. Maury Govea at 1136 hours on 04/21/2024. It was ascertained that the content and urgency of the report was understood at the time of direct communication. Head/Neck CTA 04/21/24 11:22 IMPRESSION: CT head: *No acute intracranial abnormalities identified. No intracranial hemorrhage or acute infarcts. CT angiography neck: *Newly identified ulcerative atherosclerotic plaque measuring 3 mm diameter at the origin of the left internal carotid artery. No associated occlusion or approximate thrombus. This finding is new compared with 12/04/2021. *Nonocclusive, nonulcerative mixed calcific and noncalcific plaque at the origin of the right internal carotid artery unchanged compared with 12/04/2021. *Centrilobular emphysema noted in the incidentally visualized lung apices. *C6-C7 bilateral foraminal stenoses and mild central stenosis secondary to chronic spondylosis. CT angiography head: *No intracranial large vessel occlusions. *Nonocclusive segmental calcific atherosclerosis of the cavernous portions of the internal carotid arteries. *Unchanged marked tendons stenoses involving the junction of the P2 and P3 segments of the left posterior cerebral artery. This critical result regarding no acute intracranial abnormalities and no large vessel occlusions was discussed with Maury Govea MD by telephone at 04/21/2024 11:45 AM and it was ascertained that the content and urgency of the report was understood at the time of direct communication. This result regarding the left internal carotid artery ulcerative plaque was discussed with Maury Govea MD by telephone at 04/21/2024 11:57 AM and it was ascertained that the content and urgency of the report was understood at the time of direct communication. Assessment and Plan (1) Transient cerebral ischemia: Status: Acute Plan 68 year old male with history of pericardial effusion, ascending aortic aneurysm, htn, copd with nocturnal hypoxemia on 2L supplemental O2 at bedtime, alcohol use disorder who is a current 1.5 pack per day cigarette smoker admitted for further management of TIA. #Acute TIA -CT head negative for acute intracranial abn. CTA neck shows new 3mm ulceration of left carotid without thrombus or occlusion. Other stable chronic findings -Given 325mg asa in ED, continue 81mg daily per neuro (no DAPT at this time) -MRi brain -echo -cardiac diet (passed bedside swallow) -stroke edu, neurochecks -lipid profile, atorvastatin 80mg daily -check hgb a1c -neuro consult -admit to med/tele #HTN -hold antihypertensives at this time to allow for permissive htn #COPD with nocturnal hypoxemia -no exacebation -continue maintenance inhalers, albuterol prn -2L supplemental O2 at bedtime #Alcohol use disorder -3 drinks per night, no evidence of w/d at this time -MOnitor on CIWA, initiate phenobarbital if evidence of w/d -PO thiamine and folic acid #Cigarette smoking -cessation advised -patch and gum for NRT DVT prophylaxis- lovenox full code pt requires inpt stay at least 2 midnights for management of TIA requiring close monioring for symptom progression, echo, MRI, and expert consulation Quality Stroke Does the patient have a stroke diagnosis?: Yes Reason for No Anti-thrombotic by Day Two: Drug treatment not indicated VTE Prior VTE?: No VTE Risk Level:: Medical - moderate - high VTE Device Contraindication: Treatment Not Indicated VTE Drug Contraindication: N/A - Med Ordered
--- NOTE | 2024-04-21 14:00 | CA_ITS ---
Transthoracic Echocardiogram Patient (Last, First, Middle): Nader Shin J Gender: Male Date of : 1955 Age: 68 Procedure Date: 04/21/2024 Procedure Type: Transthoracic Echocardiogram Location: ER Height: 177.8 cm Weight: 95.71 kg BSA: 2.14 m2 Heart Rate: bpm BP: 132 / 82 mmHg Nutter Up: TO Referring MD: Indira ROBERSON Symptoms: tia Study Quality: Fair Conclusions: - Normal left ventricular size, thickness, systolic function, and wall motion. - Normal right ventricular cavity size and systolic function. - There is no evidence of interatrial shunt by agitated saline. Findings Procedure Information The study quality is limited by the patients inability to tolerate the test. Left Ventricle Normal left ventricular size, thickness, systolic function, and wall motion. The visually estimated ejection fraction is between 60-65%. Diastolic function is normal for age. Right Ventricle Normal right ventricular cavity size and systolic function. Atria The left atrium is normal in size. There is lipomatous hypertrophy of the interatrial septum. There is no evidence of interatrial shunt by agitated saline. The right atrium is likely dilated. Aortic Valve Normal aortic valve structure and function. There is mild calcification of the aortic valve. There is no aortic valve stenosis. There is no aortic valve regurgitation. Mitral Valve The mitral valve appears normal. There is no mitral valve regurgitation. There is no mitral valve stenosis. Pulmonic Valve The pulmonic valve is normal. There is no pulmonic valve regurgitation. Tricuspid Valve Tricuspid regurgitation envelope is inadequate for calculation of right ventricular systolic pressure. Moderately elevated right atrial pressure. Great Vessels There is mild dilatation of the ascending aorta measuring 4.20 cm. Venous The inferior vena cava is mildly dilated and collapses greater than 50% with inspiration. Pericardium/Pleural There is no evidence of pericardial effusion. Prior Study Comparison No significant change compared to prior study dated: 08/20/2023. Measurements 2D Linear Measurements IVSd: 1.12 0.6-0.9/0.6-1.0 cm LVIDd: 4.44 3.9-5.3/4.2-5.9 cm LVIDd Index: 2.07 2.4-3.2/2.2-3.1 cm/m2 LVIDs: 3.25 2.0-3.6 cm LVPWd: 0.94 0.7-1.1 cm LA Diam: 3.50 2.7-3.8/3.0-4.0 cm LAIDs Index: 1.64 1.5-2.3 cm/m2 LV Mass: 193.92 67-162/88-224 g LV Mass Index: 90.62 43-95/49-115 g/m2 LVOT Diam: 2.40 3.0+(-)1.3 cm 2D Systolic Function EF 4C: 65.70 >55% EF 2C: 57.30 >55% EF BiP: 61.80 >55% Mitral Valve MV Pk E: 0.54 MV PK A: 0.53 MV Decel Time: 249.00 E/A: 1.00 E'Lateral: 10.80 E'Medial: 7.07 E/E' Med: 7.60 E/E' Lat: 5.00 PHT: 73.00 MVA PHT: 3.01 Decel Overton: 2.15 Aortic Valve AoV Pk Abhijit: 1.36 AoV Mn Abhijit: 0.92 AoV VTI: 0.28 AoV Pk Grad: 7.00 Aov Mn Grad: 4.00 LANA Cont.VTI: 3.16 LVOT LVOT Pk Abhijit: 1.03 LVOT Mn Abhijit: 0.70 LVOT VTI: 0.19 LVOT Pk Grad: 4.00 LVOT Mn Grad: 2.00 LVOT Diam: 2.40 LVOT Area: 4.52 Diastolic Function MV Pk E: 0.54 MV Pk A: 0.53 E/A: 1.00 E'Medial: 7.07 E/E' Med: 7.60 E' Laterial: 10.80 E/E' Lat: 5.00 Right Ventricle TAPSE (mm): 21.40 TVS' Abhijit: 13.30 Tricuspid Valve RA Press: 8.00 Great Vessels Aorta Sinus of Valsalva: 3.85 2.0-3.5 cm Ao Asc: 4.20 2.1-3.4 cm Updated in Other Vendor System with Status of Final Jc Hernandez MD electronically signed on 04/22/2024 12:41:43 PM with status of Final
[2024-04-21 14:05] LABS: Cholesterol 215 mg/dL (<200); HDL Cholesterol 54 mg/dL (>40); LDL Cholesterol Calculated 112 mg/dL (<100); Triglycerides 246 mg/dL (<150)
[2024-04-21 14:31] LABS: Estimated Average Glucose 126 mg/dL
[2024-04-21] MEDS: Enoxaparin Sodium 40 MG/0.4 ML SYRINGE SUBCUT (14:33)
[2024-04-21] MEDS: Nicotine 21 MG PATCH.TD24 TRANSDERMA (14:35)
--- NOTE | 2024-04-21 15:33 | PHA.MEDREC ---
Pharmacy Consult ? Medication Reconciliation Pharmacy has completed the medication reconciliation.
--- NOTE | 2024-04-21 16:19 | PC.NURSE ---
pt oob to BR without assitance pt able to ambulate with steady balanced gait
[2024-04-21] MEDS: 0.9 % Sodium Chloride Flush 3 ML SYRINGE IVFLUSH (16:31)
[2024-04-22 03:17] VITALS: BP 125/80; PULSE 69; RESP 18; TEMP 37; O2SAT 92
[2024-04-22 06:16] LABS: MANUAL DIFF FLAG NO
[2024-04-22 06:18] LABS: Basophils Absolute Auto 0.1 X10*3/uL (0.0-0.2); Eosinophils Absolute Auto 0.3 X10*3/uL (0.0-0.4); Eosinophils Percent Auto 3.2 % (0-4); Hematocrit 47.3 % (42.0-52.0); Hemoglobin 16.7 g/dl (14.0-18.0); Imm Gran Abs Auto 0.03 X10*3/uL (0.00-0.03); Imm Gran Pct Auto 0.3 % (0.0-0.4); Lymphocytes Absolute Auto 1.7 X10*3/uL (1.2-4.9); Lymphocytes Percent Auto 16.7 % (20-40); Mean Corpuscular HGB Conc 35.3 g/dl (31.0-36.0); Mean Corpuscular Hemoglobin 34.2 pg (27.0-33.0); Mean Corpuscular Volume 96.7 fL (80.0-98.0); Mean Platelet Volume 9.9 fL (9.4-12.4); Monocytes Absolute Auto 1.2 X10*3/uL (0.1-1.2); Monocytes Percent Auto 12.1 % (2-11); Neutrophils Absolute Auto 6.7 x10*3/uL (2.0-8.3); Neutrophils Percent Auto 66.7 % (45-73); Platelet Count 223 X10*3/uL (160-400); Red Blood Count 4.89 X10*6/uL (4.60-5.80)
[2024-04-22 06:34] VITALS: BP 129/90; PULSE 81; RESP 22; TEMP 36.4; O2SAT 92
[2024-04-22 06:35] LABS: Anion Gap 13 (12-20); Blood Urea Nitrogen 11 mg/dL (9-16); Carbon Dioxide 25 mmol/L (22-29); Chloride 101 mmol/L (96-108); Creatinine Clr Calc Pharmacy 122.5; Estimated Glomerular Filt Rate > 60; Glucose Random 118 mg/dL (60-115); Potassium 3.3 mmol/L (3.3-5.1); Sodium 136 mmol/L (135-145)
[2024-04-22] MEDS: Nicotine 21 MG PATCH.TD24 TRANSDERMA (08:24)
[2024-04-22] MEDS: Aspirin Enteric Coated 81 MG TABLET.DR PO (08:24)
[2024-04-22] MEDS: Folic Acid 1 MG TABLET PO (08:24)
[2024-04-22] MEDS: Atorvastatin Calcium 80 MG TABLET PO (08:24)
[2024-04-22] MEDS: Thiamine HCL 100 MG TABLET PO (08:24)
[2024-04-22] MEDS: 0.9 % Sodium Chloride Flush 3 ML SYRINGE IVFLUSH (08:30)
--- NOTE | 2024-04-22 09:57 | MHC.CM.PN ---
Addendum entered by Lissy Dukes 04/22/24 10:34: PT WILL DC TODAY WITH NO SERVICES Original Note: PT REPORTS HE LIVES ALONE AND IS INDEPENDENT WITH CARE HE HAS NO DME AND NO SERVICES PT DOES NOT HAVE A HCP AND DECLINES TO COMPLETE ONE TODAY PCP: KARLEE DUNNE IMM DELIVERED DCP: HOME NO SERVICES VIA PRIVATE TRANSPORT
--- NOTE | 2024-04-22 10:34 | PM.DS ---
DS: Providers Provider Date of Service: 04/22/24 Date of admission: 04/21/24 13:10 Primary care physician: Venancio Helm III, MD Consults: 04/21/24 13:12 Consult to Neurology Routine Consulting Provider: [facility] Reason for consultation: tia DS: Diagnosis Discharge Diagnosis (1) Transient cerebral ischemia: Status: Acute DS: Summary Hospital Course Hospital Course: History of presenting illness: Date of Service: 04/21/24 Attending physician on admission: Briana Montes Chief Complaint: left sided facial numbness , slurred speech 68 year old male with history of pericardial effusion, ascending aortic aneurysm, htn, copd with nocturnal hypoxemia on 2L supplemental O2 at bedtime, alcohol use disorder who is a current 1.5 pack per day cigarette smoker presented to the ED earlier today via EMS for evaluation stroke like symptoms. He reports approximately 1030 am developed expressive aphasia, left lower facial numbness and LUE numbness. Denies facial droop, focal weakness, gait instability, confusion, visual changes, headache, chest pain. Symptoms present on arrival to the ED, but have fully resolved at time of admission. Reports he has chronic pupil asymmetry and reports there is suspicion of prior stroke but this has not been confirmed. He reports drinking 3 measured alcoholic beverages nightly, last drink last night. Denies hx withdrawal/seizures. No drug use. On arrival, VSS. NO leukocytosis or anemia. Renal function and lytes normal. Lipid panel pending. Ethyl etoh level undetectable. Head CT shows age-related cerebral atrophy and ventriculomegaly but no acute intracranial abnormality. CTA of the head/neck shows newly identified ulcerative atherosclerotic plaque measuring 3 mm in diameter at the origin of the left internal carotid artery but no associated occlusion or approximate thrombus. There were also unchanged findings of calcified and noncalcified plaques within the right internal carotid artery and nonocclusive segmental calcific atherosclerosis of the cavernous portions of the internal carotid arteries. EKG shows NSR, rate 82 with incomplete right bundle-branch block. In the ED, has received aspirin. Admit for further management of TIA. Hospital course: 68 year old male with history of pericardial effusion, ascending aortic aneurysm, htn, copd with nocturnal hypoxemia on 2L supplemental O2 at bedtime, alcohol use disorder who is a current 1.5 pack per day cigarette smoker admitted for further management of TIA, all symptoms of numbness and tingling of face and left upper extremity, as well as speech difficulty resolved within 2-3 hours, patient continued to have tingling in the 4th and 5th fingers of the left hand, patient underwent extensive workup including CT head that showed no acute intracranial abnormality, CTA neck showed an ulcerated plaque of left carotid without thrombus or occlusion, unchanged from 2021, patient treated with aspirin and Lipitor, subsequently seen by Neurology they recommended an MRI that showed no acute abnormality but showed empty sella, lipid profile showed a total cholesterol of 215 and an LDL of 112, hemoglobin A1c 6, patient noted to have no recurrent episodes of neurological deficit, he has been strongly advised to follow low cholesterol diet completely abstain from smoking, he is being discharged home on aspirin 81 mg daily Lipitor 80 mg daily he is recommended to continue antihypertensive medications, an echocardiogram has been obtain report pending patient is recommended to follow up with PCP to obtain report of echo, patient 4th and 5th finger tingling and numbness likely due to compression of ulnar nerve neuropathy, Physical therapy recommend no further therapies. Empty sella incidental finding on MRI study patient asymptomatic recommend outpatient PCP follow-up. In regard to COPD with nocturnal hypoxemia patient is recommend to continue 2 L of home oxygen no acute exacerbation was noted. Alcohol use disorder consume 3 drinks per night had no evidence of withdrawal, recommend to minimize use of alcohol Time Attestation Discharge Coordination Time (in mins): 38 Quality: Safe Use of Opioids Does Pt have an Active Cancer Diagnosis on the Problem List?: No Quality: Stroke Does the patient have a stroke diagnosis?: No Physical Exam Vital Signs: Vital Signs: Last Vital Signs Temp 97.5 F 04/22/24 06:34 Pulse 81 04/22/24 06:34 Resp 22 H 04/22/24 06:34 BP 129/90 H 04/22/24 06:34 Pulse Ox 92 04/22/24 06:34 O2 Del Method Room Air 04/22/24 06:34 BMI result Body Mass Index 30.4 Const: Other: General awake alert x3, resting comfortably in no acute distress. Anicteric sclera Neck supple no JVD. CVS regular rate rhythm, Respiratory lungs clear to auscultation, no respiratory distress, no wheeze, no rhonchi. Gastrointestinal abdomen soft, non tender, bowel sounds audible. Extremities no edema. Neuro non focal, symmetrical face speech clear normal upper and lower extremity motor strength and tone Skin no rash Psych appropriate affect DS: Data Data Completed and Pending Completed studies during hospitalization [Text1]: Procedures Drainage of Left Pleural Cavity, Percutaneous Approach (11/25/21) Labs on day of discharge: Laboratory Results - last 24 hr 04/21/24 04/21/24 04/21/24 11:01 11:02 11:47 WBC 9.7 RBC 4.90 D Hgb 16.8 D Hct 48.2 D MCV 98.4 H MCH 34.3 H MCHC 34.9 RDW 13.2 Plt Count 237 D MPV 9.2 L Immature Gran % (Auto) 0.3 Neut % (Auto) 58.1 Lymph % (Auto) 25.1 Elliott % (Auto) 13.4 H Eos % (Auto) 1.9 Baso % (Auto) 1.2 Lymph # (Auto) 2.4 Elliott # (Auto) 1.3 H Eos # (Auto) 0.2 Baso # (Auto) 0.1 Abs Immat Gran (auto) 0.03 Absolute Neuts (auto) 5.6 Absolute Nucleated RBC 0.000 Nucleated RBC % (auto) 0.0 PT 12.2 Whole Blood PT 14.1 H INR 1.0 Whole Blood INR 1.2 H APTT 32.4 Sodium 138 Potassium 3.7 Chloride 101 Carbon Dioxide 26 Anion Gap 15 BUN 12 Creatinine 0.80 Estim Creat Clear Calc 104.1 Estimated GFR > 60 POC Glucose 128 H Random Glucose 104 Estimat Average Glucose 126 Hemoglobin A1c % 6.0 Calcium 9.3 Troponin I High Sens < 2.7 Triglycerides 246 H Cholesterol 215 H LDL Cholesterol, Calc 112 H HDL Cholesterol 54 Ethyl Alcohol < 10 04/22/24 05:38 WBC 10.0 RBC 4.89 Hgb 16.7 Hct 47.3 MCV 96.7 MCH 34.2 H MCHC 35.3 RDW 13.0 Plt Count 223 MPV 9.9 Immature Gran % (Auto) 0.3 Neut % (Auto) 66.7 Lymph % (Auto) 16.7 L Elliott % (Auto) 12.1 H Eos % (Auto) 3.2 Baso % (Auto) 1.0 Lymph # (Auto) 1.7 Elliott # (Auto) 1.2 Eos # (Auto) 0.3 Baso # (Auto) 0.1 Abs Immat Gran (auto) 0.03 Absolute Neuts (auto) 6.7 Absolute Nucleated RBC 0.000 Nucleated RBC % (auto) 0.0 PT Whole Blood PT INR Whole Blood INR APTT Sodium 136 Potassium 3.3 Chloride 101 Carbon Dioxide 25 Anion Gap 13 BUN 11 Creatinine 0.68 Estim Creat Clear Calc 122.5 Estimated GFR > 60 POC Glucose Random Glucose 118 H Estimat Average Glucose Hemoglobin A1c % Calcium 9.0 Troponin I High Sens Triglycerides Cholesterol LDL Cholesterol, Calc HDL Cholesterol Ethyl Alcohol Discharge Plan Discharge Anticipated Discharge Date/Time: 04/22/24 10:28 Patient Disposition: Home, Self-Care Discharge Diagnosis: TIA Referrals: Venancio Helm III, MD [Primary Care Provider] - 1 Week Discharge Medications: New atorvastatin 80 mg Tablet 80 mg PO DAILY Qty: 30 0RF aspirin 81 mg Tablet,Delayed Release (Dr/Ec) 81 mg PO DAILY Qty: 30 0RF nicotine 21 mg/24 hr Patch 24 Hour 21 mg transdermal DAILY Qty: 30 0RF Continued amlodipine 5 mg tablet 5 mg PO DAILY Qty: 90 3RF trazodone 50 mg tablet 1 tab PO BEDTIME Anoro Ellipta 62.5-25 mcg/actuation blister with device 1 puff inhalation DAILY hydrochlorothiazide 25 mg tablet 25 mg PO DAILY folic acid 1 mg tablet 1 mg PO DAILY Discharge Orders: Discharge Order (Routine); Ordered 04/22/24 Ordered By: Briana Montes Diet: Low fat, low cholesterol Activity on Discharge: As tolerated Stand Alone Forms: Patient Portal Discharge page Print Language: Libyan Care Plan Goals: Transient ischemic episode causing transient aphasia, left facial and left upper extremity numbness all resolved Recommend aspirin 81 mg daily, Lipitor 80 mg daily, strongly recommend to abstain from smoking and follow low cholesterol diet Continue home medications as before ECHOCARDIOGRAM report pending obtain from primary care physician Health Concerns: Hypertension Aortic aneurysm continue outpatient follow-up Plan of Treatment: Outpatient follow-up with primary care physician (patient is scheduled to have physical exam with his PCP in 1 week) Assessment: As above
[2024-04-22 11:53] VITALS: BP 129/90; PULSE 81; RESP 18; TEMP 36.4; O2SAT 98
== END 2024-04-22 11:11 | disposition home or self-care (01) | DRG 69 ==
LOC: HO.ED 12:59 → HO.EDOVER 13:16
PROVIDERS: Admitting Provider Physician Assistant; Emergency Provider Emergency Medicine; PCP Internal Medicine; Visit Provider Hospitalist
DX: G45.9 Transient cerebral ischemic attack, unspecified (principal); F17.210 Nicotine dependence, cigarettes, uncomplicated; R20.2 Paresthesia of skin; F10.90 Alcohol use, unspecified, uncomplicated; I10 Essential (primary) hypertension; J44.9 Chronic obstructive pulmonary disease, unspecified; Z71.6 Tobacco abuse counseling; Z99.81 Dependence on supplemental oxygen; Z79.899 Other long term (current) drug therapy
CPT/HCPCS: 36415; 70450; 70496; 70498; 70551; 80048; 80061; 80307; 82947; 83036; 84484; 85025; 85610; 85730; 93005; 93306; 96372; 97161; 97165; 99285; J1650; Q9957; Q9967

== ENCOUNTER → 2024-04-21 11:01 | Outpatient (BNV) | payer MEDICARE, SELFPAY | PROVIDERS: Admitting Provider Physician Assistant; Emergency Provider Emergency Medicine; PCP Internal Medicine; Visit Provider Internal Medicine Cardiovascular Disease | DX: R94.31 Abnormal electrocardiogram [ECG] [EKG] (principal); I35.8 Other nonrheumatic aortic valve disorders | CPT/HCPCS: 93010; 93306 ==

== ENCOUNTER → 2024-04-21 13:10 | Outpatient (BNV) | payer MEDICARE, SELFPAY | PROVIDERS: Admitting Provider Physician Assistant; Emergency Provider Emergency Medicine; PCP Internal Medicine; Visit Provider Hospitalist | DX: G45.9 Transient cerebral ischemic attack, unspecified (principal) | CPT/HCPCS: 99223; 99239 ==

== ENCOUNTER → 2024-04-21 13:10 | Outpatient (BNV) | payer MEDICARE, SELFPAY | PROVIDERS: Admitting Provider Physician Assistant; Emergency Provider Emergency Medicine; PCP Internal Medicine; Visit Provider Psychiatry & Neurology Neurology | DX: G45.8 Other transient cerebral ischemic attacks and related syndromes (principal) | CPT/HCPCS: 99222 ==

== ENCOUNTER → 2024-08-04 14:49 | Outpatient (REF) | payer MEDICARE, SELFPAY ==
--- NOTE | 2024-08-04 14:53 | CA_ITS ---
Transthoracic Echocardiogram Patient (Last, First, Middle): Nader Shin J Gender: Male Date of : 1955 Age: 69 Procedure Date: 08/04/2024 Procedure Type: Transthoracic Echocardiogram Location: OP Height: 177.8 cm Weight: 92.53 kg BSA: 2.10 m2 Heart Rate: bpm BP: 122 / 60 mmHg Intelligence Applications: Referring MD: Isatu Santiago PRINT MANAGER-C Symptoms: I77.810 - Thoracic aortic ectasia Study Quality: Adequate ECG Rhythm: Sinus Conclusions: - There is mild dilatation of the ascending aorta measuring 4.20 cm. Findings Left Ventricle Normal left ventricular cavity size. The left ventricular systolic function is normal. The calculated ejection fraction is 57% by biplane method. There is no evidence of regional wall motion abnormalities. Aortic Valve There is no aortic valve regurgitation. Great Vessels There is mild dilatation of the ascending aorta measuring 4.20 cm. Venous The inferior vena cava is normal in size and collapses greater than 50% with inspiration. Prior Study Comparison No significant change compared to prior study dated: 04/21/2024. Measurements 2D Linear Measurements IVSd: 1.22 0.6-0.9/0.6-1.0 cm LVIDd: 4.71 3.9-5.3/4.2-5.9 cm LVIDd Index: 2.24 2.4-3.2/2.2-3.1 cm/m2 LVIDs: 3.09 2.0-3.6 cm LVPWd: 1.21 0.7-1.1 cm Ao Root: 3.80 2.1-3.5 cm LV Mass: 269.89 67-162/88-224 g LV Mass Index: 128.52 43-95/49-115 g/m2 2D Systolic Function EF 4C: 53.90 >55% EF 2C: 56.60 >55% EF BiP: 57.10 >55% Great Vessels Aorta Ao Root-2D: 3.80 2.0-3.7 cm Ao Asc: 4.20 2.1-3.4 cm Updated in Other Vendor System with Status of Final Bishop Brady MD electronically signed on 08/05/2024 11:14:59 AM with status of Final
== END ==
LOC: HO.CARD 14:49
PROVIDERS: PCP Internal Medicine; Visit Provider Nurse Practitioner Family
DX: I77.810 Thoracic aortic ectasia (principal)
CPT/HCPCS: 93308

== ENCOUNTER → 2024-08-04 14:53 | Outpatient (BNV) | payer MEDICARE, SELFPAY | PROVIDERS: PCP Internal Medicine; Visit Provider Internal Medicine | DX: I77.810 Thoracic aortic ectasia (principal) | CPT/HCPCS: 93308 ==

== ENCOUNTER 2024-08-24 13:08 | Outpatient (AMB) | payer MEDICARE, SELFPAY ==
--- NOTE | 2024-08-24 13:16 | MHC.OFFVIS ---
Vital Signs 08/24/24 13:17 Height 5 ft 10 in Weight 202 lb 6.15 oz BMI 29.0 BP 124/70 Blood Pressure Location Lt brachial Position Sitting Pulse 91 Pulse Source Monitor Intake Visit Reasons: 1 yr s/p echo Mess Attendant Required: No Allergies No Known Allergies Allergy (Verified 08/24/24 13:18) Medication List - Last Reconciled 08/24/24 by Isatu Santiago, [facility] amlodipine 5 mg PO DAILY aspirin 81 mg PO DAILY atorvastatin 80 mg PO DAILY folic acid 1 mg PO DAILY hydrochlorothiazide 25 mg PO DAILY ipratropium-albuterol 20-100 mcg/actuation (Combivent Respimat) 1 puff inhalation QID nicotine 21 mg transdermal DAILY trazodone 1 tab PO BEDTIME umeclidinium-vilanterol 62.5-25 mcg/actuation (Anoro Ellipta) 1 puff inhalation DAILY HPI HPI 1 yr s/p echo: Details: Nader is a 69-year-old male with past medical history of hypertension, COPD, smoking, dilated ascending aorta, constrictive pericarditis who was admitted to [facility] [place] March 2024 with left-sided numbness and speech disturbance. He was treated for TIA, symptoms resolved. He was evaluated by Neurology. Was started on aspirin and atorvastatin. Today he reports he has been doing well since his hospital discharge. He has had no recurrent neurological changes. He continues to smoke 1.5 packs of cigarettes per day and drink 3 alcoholic beverages each night. He has some shortness of breath with exertion which is not new. No chest discomfort at rest or with activity. No heart palpitations, dizziness, presyncope, syncope, PND, orthopnea or edema. Taking meds as directed. Has not had a Neurology follow-up. Has been seen by his PCP. [facility] Medical History Supplemental oxygen dependent Alcohol dependence Tobacco use disorder Pneumonia Sepsis Chronic respiratory failure Pleural effusion Acute pericardial effusion Chest pain HTN (hypertension) COPD (chronic obstructive pulmonary disease) Surgical History History of eyelid surgery History of appendectomy History of tonsillectomy H/O hernia repair Family History Mother No problems noted. Father No problems noted. Brother Gout Social History Household Members: None Housing: House Do you presently have visiting nurse or other home services: No Alcohol intake: current Alcohol intake frequency: 3 or more drinks per day Alcohol type: hard liquor Patient Tobacco Use Status: Current everyday Tobacco user Tobacco use type: Cigarette Cigarette Packs Per Day: 1.5 Cigarettes Per Day: 30 Years Smoked: 52 +/- Substance Use Type: Marijuana service: No Current occupational status: retired Review of Systems Const All systems reviewed & are unremarkable except as noted in HPI and below ENT Denies dizziness Card Denies chest pain, Denies chest pain at rest, Denies chest pain with activity, Denies rapid heart rate, Denies pedal edema, Denies edema, Denies leg edema, Denies lightheadedness, Denies palpitations, Denies dyspnea, Denies dyspnea on exertion and Denies orthopnea Resp Denies cough, Denies dyspnea and Denies dyspnea on exertion GI Denies hematochezia and Denies change in stool character Musc Denies abnormal gait, Denies limited range of motion, Denies muscle cramps, Denies muscle weakness, Denies numbness, Denies radiating pain into limb, Denies stiffness and Denies tingling Neuro Denies abnormal gait, Denies dizziness, Denies numbness and Denies tingling Endo Denies palpitations Physical Exam Vital Signs: Last Vital Signs Pulse 91 08/24/24 13:17 BP 124/70 08/24/24 13:17 BMI result Body Mass Index 29.0 Const General: cooperative, healthy appearing, comfortable and no acute distress Orientation/consciousness: patient oriented x3 Neck Neck: Yes normal visual inspection Resp Effort & Inspection: normal respiratory effort Auscultation: clear to auscultation bilaterally, no crackles, no rales, no rhonchi and no wheezes Cardio Jugular venous distension: no JVD Rate: regular rate Rhythm: regular rhythm Heart sounds: S1 normal heart sound present, S2 normal heart sound present, no murmurs and no rubs Neuro General: patient oriented x3 Extrem General: Yes normal to inspection, No no pedal edema and No calf tenderness Psych Appearance: grossly normal Mental Status: mental status grossly normal Speech and movement: Normal speech and movement present Office Procedures EKG Details: Today read by me, normal sinus rhythm, left axis deviation, can not exclude prior inferior infarct, incomplete right bundle branch block, rate 91, QTC 469 milliseconds [id number], Complete Assessment & Plan Assessment & Plan (1) Transient cerebral ischemia: Code(s): G45.9 - Transient cerebral ischemic attack, unspecified Category: Medical Plan: [facility] admission 03/2024 with difficulty speaking and numbness in his left upper extremity. His symptoms lasted over an hour before resolving. With friends when it occurred and he was brought directly to [facility] [place]. A CTA of the brain showed no acute intracranial abnormalities, hemorrhage or acute infarct. CTA of the neck did show a newly identified ulcerative atherosclerotic plaque measuring 3 mm at the origin of the left ICA, no occlusion or approximated thrombus, nonocclusive non ulcerative mixed calcified and noncalcified plaque at the origin of the right ICA. An MRI of the brain showed no acute findings, mild chronic microvascular ischemic change. He was evaluated by Neurology. There note does include rule out embolic phenomenon due to language symptoms as well as peripheral. During his hospitalization he had an echocardiogram with bubble study which showed no intra-atrial shunt. Telemetry monitoring showed no arrhythmia of concern. Was started on aspirin and discharged with atorvastatin 80 mg daily. Today he reports that he has had no recurrent neurological changes since this event. Says he took the atorvastatin for 1 month then when the bottle ran out he did not request a refill. He is still taking daily aspirin. He continues to smoke 1.5 packs of cigarettes per day. He has been trying to cut back. EKG done today is showing normal sinus rhythm, rate 91. Will check a cardiac event monitor to assess for any atrial fibrillation. He denies any heart palpitations so this is less likely. Will restart on atorvastatin. He refuses high-dose 80 mg daily. He is willing to start on 20 mg daily. Will check a fasting lipid profile and LFT in 2 months. Plan to call him with results. Cardiology office visit 6 months, sooner if needed. 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 Echocardiogram done 12/27/2021 showing trivial pericardial effusion, no definitive echocardiograph findings of constrictive physiology. Echocardiogram done 08/20/2023 shows EF 57%, ascending aorta 4.2 cm, no pericardial effusion. Most recent echo shows no pericardial effusion. Currently feeling well with no concerning symptoms. He does have some shortness of breath with exertion which is not new. No chest discomfort reported. (3) Pericardial effusion: Code(s): I31.3 - Pericardial effusion (noninflammatory) Category: Medical Plan: No effusion present on recent echocardiogram. (4) Essential hypertension: Code(s): I10 - Essential (primary) hypertension Category: Medical Plan: Well controlled at present time. No med changes made today. Continue on amlodipine and hydrochlorothiazide. He says labs followed by PCP (5) OLIVEIRA (dyspnea on exertion): Code(s): R06.09 - Other forms of dyspnea Category: Medical Plan: As above. He continues to smoke 1.5 pack of cigarettes per day. He tells me he does follow with pulmonology and is working on cigarette reduction. (6) Tobacco use disorder: Code(s): F17.200 - Nicotine dependence, unspecified, uncomplicated Category: Medical Plan: As above (7) Ascending aorta dilation: Code(s): I77.810 - Thoracic aortic ectasia Category: Medical Plan: Echocardiogram in 2020 shows ascending aorta 4 cm. Echocardiogram 08/20/2023 shows ascending aorta 4.2 cm. Echocardiogram done during hospitalization 04/21/2024 showed ascending aorta 4.2 cm. Outpatient limited echo that had been previously scheduled was done on 08/04/2024 again showing ascending aorta 4.2 cm. Has been stable. Blood pressure is well controlled. Results reviewed with patient. Restarting statin. Plan recheck of echo in 1-2 years. (8) Hospital discharge follow-up: Code(s): Z09 - Encounter for follow-up examination after completed treatment for conditions other than malignant neoplasm Category: Medical (9) Hyperlipidemia: Code(s): E78.5 - Hyperlipidemia, unspecified Category: Medical Plan Time spent on chart review, documentation, intravenous assessment Orders: Orders Comprehensive Met. Panel Today E78.5 - Hyperlipidemia, unspecified Lipid Panel Today E78.5 - Hyperlipidemia, unspecified ECG 30 day event monitor Today G45.9 - Transient cerebral ischemic attack, unspecified Medications: New atorvastatin Restarting, lower dose 20 mg PO BEDTIME 30 tabs 6RF Discontinued atorvastatin Discontinued Reason: Doctor's Order 80 mg PO DAILY 30 tabs 0RF Coding Level of Care Code Est Pt Level 4 (94634) Diagnoses Transient cerebral ischemia G45.9 Constrictive pericarditis I31.1 Pericardial effusion I31.3 Essential hypertension I10 OLIVEIRA (dyspnea on exertion) R06.09 Tobacco use disorder F17.200 Ascending aorta dilation I77.810 Hospital discharge follow-up Z09 Hyperlipidemia E78.5 CPT Codes EKG - CPT: 49784-[id number], Complete ([id number]) Time Spent (min) 36
[2024-08-24 13:17] VITALS: BP 124/70; PULSE 91; BMI 29.0
== END 2024-08-24 14:01 | disposition home or self-care (01) ==
PROVIDERS: PCP Internal Medicine; Visit Provider Nurse Practitioner Family
DX: G45.9 Transient cerebral ischemic attack, unspecified (principal); I31.1 Chronic constrictive pericarditis; I31.39 Other pericardial effusion (noninflammatory); I10 Essential (primary) hypertension; R06.09 Other forms of dyspnea; F17.200 Nicotine dependence, unspecified, uncomplicated; I77.810 Thoracic aortic ectasia; Z09 Encounter for follow-up examination after completed treatment for conditions other than malignant neoplasm; E78.5 Hyperlipidemia, unspecified
CPT/HCPCS: 93010; 99214

== ENCOUNTER → 2024-08-24 13:08 | Outpatient (BNVA) | payer MEDICARE, SELFPAY | PROVIDERS: PCP Internal Medicine; Visit Provider Nurse Practitioner Family | DX: Z09 Encounter for follow-up examination after completed treatment for conditions other than malignant neoplasm (principal); G45.9 Transient cerebral ischemic attack, unspecified; I77.810 Thoracic aortic ectasia; I31.1 Chronic constrictive pericarditis; I31.39 Other pericardial effusion (noninflammatory); R06.09 Other forms of dyspnea; E78.5 Hyperlipidemia, unspecified; F17.210 Nicotine dependence, cigarettes, uncomplicated | CPT/HCPCS: 93005; 99212 ==

== ENCOUNTER → 2024-09-06 10:55 | Outpatient (REF) | payer MEDICARE, SELFPAY ==
--- NOTE | 2024-09-06 11:04 | HM_ITS ---
Cardiac event monitor Indication: Transient cerebral ischemic attack Technique: Patient was hooked up to cardiac event monitor from 09/06/2020 4-10 06 2024 with a total where time of about 26 days. Findings: Baseline was normal sinus rhythm with average heart rate of 85 beats per minute. No significant pauses noted. Frequent sinus tachycardia noted with total burden of 34%. There were no episodes of atrial fibrillation noted. Occasional isolated PACs and PVCs noted. Patient marked events about 5 times which correlated with either with sinus rhythm, sinus tachycardia or PACs. Conclusion: 1. Baseline was normal sinus rhythm with no pauses 2. Frequent sinus tachycardia noted 3. No evidence of atrial fibrillation 4. Occasional PACs and PVCs noted 5. Patient reported symptoms correlated with no significant arrhythmias MTDD
== END ==
LOC: HO.CARD 10:55
PROVIDERS: PCP Internal Medicine; Visit Provider Nurse Practitioner Family
DX: G45.9 Transient cerebral ischemic attack, unspecified (principal)
CPT/HCPCS: 93270

== ENCOUNTER → 2024-09-06 11:04 | Outpatient (BNV) | payer MEDICARE, SELFPAY | PROVIDERS: PCP Internal Medicine; Visit Provider Internal Medicine Cardiovascular Disease | DX: R00.0 Tachycardia, unspecified (principal); I49.1 Atrial premature depolarization; I49.3 Ventricular premature depolarization | CPT/HCPCS: 93272 ==

== ENCOUNTER 2025-02-23 12:40 | Outpatient (AMB) | payer MEDICARE, SELFPAY ==
--- NOTE | 2025-02-23 12:43 | MHC.OFFVIS ---
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 Accompanied by: Self / Same As Patient Allergies No Known Allergies Allergy (Verified 08/24/24 13:18) Medication List - Last Reconciled 02/23/25 by Jc Hernandez MD amlodipine 5 mg PO DAILY atorvastatin 20 mg PO BEDTIME folic acid 1 mg PO DAILY hydrochlorothiazide 25 mg PO DAILY ipratropium-albuterol 20-100 mcg/actuation (Combivent Respimat) 1 puff inhalation QID nicotine 21 mg transdermal DAILY trazodone 1 tab PO BEDTIME umeclidinium-vilanterol 62.5-25 mcg/actuation (Anoro Ellipta) 1 puff inhalation DAILY HPI Comments Details: 69-year-old gentleman with background history of pericardial effusion with effusive constrictive physiology which improved on eventual echocardiography. He was on colchicine in the past which has been stopped. He is an active smoker and has COPD. He also had ultrasound of his abdomen and carotids done at [facility]. He does not have reports given to him yet. He is saying he has been feeling dizzy and it is a lightheaded feeling. His blood pressure manually is 140/80. He is saying he had some sweats at nighttime on Friday but denying any other symptoms like body aches or fevers currently. Denying chest discomfort or shortness of breath. [facility] Medical History Supplemental oxygen dependent Alcohol dependence Tobacco use disorder Pneumonia Sepsis Chronic respiratory failure Pleural effusion Acute pericardial effusion Chest pain HTN (hypertension) COPD (chronic obstructive pulmonary disease) Surgical History History of eyelid surgery History of appendectomy History of tonsillectomy H/O hernia repair Family History Mother No problems noted. Father No problems noted. Brother Gout Social History (Reviewed 02/23/25 @ 12:50 by Kandace Bowie [facility]) Household Members: None Housing: House Do you presently have visiting nurse or other home services: No Alcohol intake: current Alcohol intake frequency: 3 or more drinks per day Alcohol type: hard liquor Patient Tobacco Use Status: Current everyday Tobacco user Tobacco use type: Cigarette Cigarette Packs Per Day: 1.5 Cigarettes Per Day: 30 Years Smoked: 52 +/- Substance Use Type: Marijuana service: No Current occupational status: retired Review of Systems Const Denies chills, Denies fatigue, Denies fever(s), Denies frequent falls, Denies weakness, Denies weight gain and Denies weight loss ENT Reports dizziness Card Denies chest pain, Denies leg edema, Reports lightheadedness, Denies palpitations, Denies dyspnea and Denies dyspnea on exertion Resp Denies cough, Denies dyspnea and Denies dyspnea on exertion GI Denies hematochezia Musc Denies abnormal gait, Denies muscle weakness, Denies numbness, Denies radiating pain into limb and Denies tingling Neuro Denies abnormal gait, Reports dizziness, Denies frequent falls, Denies numbness, Denies tingling and Denies weakness Endo Denies fatigue and Denies palpitations Physical Exam Vital Signs: Last Vital Signs Pulse 84 02/23/25 12:46 BP 120/70 02/23/25 12:46 BMI result Body Mass Index 29.7 GENERAL APPEARANCE: in no acute distress, pleasant. NECK: no carotid bruit, no jugular venous distention. SKIN: no suspicious lesions, warm and dry. HEART: no murmurs, regular rate and rhythm. LUNGS: clear to auscultation bilaterally. ABDOMEN: soft, nontender. EXTREMITIES: no edema. PERIPHERAL PULSES: equal. 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 He did not have any constrictive physiology on subsequent echocardiography. Continues to smoke unfortunately. Detailed discussion was done that he needs to stop smoking. He already had TIA last year. He is currently on Plavix 75 mg daily. Blood pressure is currently okay. He is complaining of some lightheadedness but it is difficult to explain. He does not have any tachycardia or arrhythmia. He drinks a lot of water. It is possible that he is coming down with some viral illness because he had some sweating at night the is a day 2. Denying any chest discomfort or shortness of breath otherwise. Same medications for now. He follow-up with us in 4 months. Medications: New clopidogrel 75 mg PO DAILY 1 tab 0RF I31.3 - Pericardial effusion (noninflammatory) Coding Level of Care Code Est Pt Level 4 (48652) Complex EM visit Add On G2211 Diagnoses Essential hypertension I10 Tobacco use disorder F17.200 Ascending aorta dilation I77.810
[2025-02-23 12:46] VITALS: BP 120/70; PULSE 84; BMI 29.7
--- OUTSIDE RECORDS SUMMARY | 2025-02-23 14:58 | XMS_ITS ---
Author Organization [address] [facility] Address [address] [place] [address] Phone Care Team Providers Care Fiscal Manager Name Role Phone Venancio Helm MD Primary Care Provider [phone] Active Problems Problem Noted Date Diagnosed Date TIA (transient ischemic attack) 11/05/2024 Carotid ulcer, left 11/05/2024 Weakness of both lower extremities 11/05/2024 Basal cell carcinoma 03/12/2022 Overview (09/17/2024): Left lower eyelid. Centrilobular emphysema 11/27/2018 Stage 2 moderate COPD by GOLD classification Ground glass opacity present on imaging of lung 11/27/2018 Nicotine dependence, uncomplicated 11/27/2018 Chronic obstructive pulmonary disease 10/15/2017 Environmental and seasonal allergies 08/21/2017 Cyclical vomiting with nausea 12/17/2016 Umbilical hernia 07/11/2014 Vomiting 03/03/2014 Lacunar infarction 12/30/2011 Overview (09/17/2024): Follows with neurology (sam) on 6 mth basis. Hypertension 02/22/2011 Insomnia 02/22/2011 Diverticulitis of colon without hemorrhage 10/06 Overview (09/17/2024): Incidental finding at colonoscopy 10/06/2007. Abdominal hernia 12/19/2006 Overview (09/17/2024): Repaired and reoccurred IMO update Current Oncology Plans No current plan information found. Past Plans No past plan information found. Radiation Treatments * No radiation treatments are documented for this patient in [facility]. Treatments may have been administered in another system. Lifetime Dose Tracking * Chemical Lifetime Dose Automatic Entry Manual Entr y Radiation (DLP) 193.02 mGy-cm 193.02 mGy-cm 0 mGy-cm CTDIvol 4.83 mGy 4.83 mGy 0 mGy
--- OUTSIDE RECORDS SUMMARY | 2025-02-23 14:58 | XMS_ITS | Continuity of Care Document ---
Author Organization [facility] Address [address] [facility], [address], [address] [place] [phone] Care Team Providers Care Seat Nailer Name Role Phone Volodymyr WALLACE MD, Venancio Kuo Primary Care Physician Encounter [facility] [place] Date(s): 12/24/24 - 01/23/25 [facility] [address] [facility] [address], [address] [place] [phone] Encounter Type: Triage Allergies, Adverse Reactions, Alerts No Known Allergies Medications amitriptyline 10 mg oral tablet 1 tablet = 10 mg, By Mouth, Daily at bedtime, # 30 tablet, 5 Refills, Maintenance, 01/08/15 4:51:26 PM EST, Tablet, [facility] [address] [facility] Start Date: 01/08/15 Stop Date: 07/07/15 Status: Ordered Quantity: 30.0 Unit: tablet Repeat number: 6 amLODIPine 5 mg oral tablet 5 mg, 1, tablet, By Mouth, Daily, Refills 0, Maintenance, 02/07/17 12:47:56 PM EST Start Date: 02/07/17 Status: Ordered Repeat number: 1 Co Q-10 100 mg oral capsule 1 capsule = 100 mg, By Mouth, Daily, 0 Refills, Maintenance, 02/07/17 12:47:29 PM EST Start Date: 02/07/17 Status: Ordered Repeat number: 1 hydrochlorothiazide 25 mg oral tablet 1 tablet = 25 mg, By Mouth, Daily, 0 Refills, Maintenance, 08/31/14 4:02:47 PM EDT Start Date: 08/31/14 Status: Ordered Repeat number: 1 omeprazole 20 mg oral delayed release tablet 1 tablet = 20 mg, By Mouth, Daily, 0 Refills, Maintenance, 02/07/17 12:48:52 PM EST Start Date: 02/07/17 Status: Ordered Repeat number: 1 prochlorperazine 25 mg rectal suppository 1 supp = 25 mg, Rectally, 2 times a day, PRN for nausea/vomiting, as needed, # 14 supp, 1 Refills, Maintenance, 08/15/17 1:33:27 PM EDT, Suppository, [facility] [address] [facility] Start Date: 08/15/17 Stop Date: 08/29/17 Status: Ordered Quantity: 14.0 Unit: supp Repeat number: 2 Patient Care team information Care Team Personnel Name: Volodymyr WALLACE MD, Venancio Kuo Position: Reference Physician Member Role: PCP Address: [address] [place] [address] Telecom: Care Team Related Persons Name: LEONARDACHALO ARANGO Insurance Providers Guarantor name: ROMAN BROWERNCAMMON [facility] Information #: 1 [facility] Member Number: NA Policy Number: NA Group Number: NA
--- OUTSIDE RECORDS SUMMARY | 2025-02-23 14:58 | XMS_ITS | Clinical Summary ---
Author Organization 175 [facility] Address [address] [place] [address] Phone Care Team Providers Care Oven Dauber Name Role Phone Venancio Helm MD Primary Care Provider [phone] Allergies No known active allergies Medications coenzyme Q-10 200 mg capsule Take 1 capsule (200 mg total) by mouth 2 (two) times a day. 08/31/20 15 Active Anoro Ellipta 62.5-25 mcg/actuation inhaler Inhale 1 puff by mouth 1 (one) time each day. 07/01/20 24 025 Active varenicline (CHANTIX) 0.5 mg tablet Take 1 tablet (0.5 mg total) by mouth 2 (two) times a day. Active clopidogreL (PLAVIX) 75 mg tablet Take 1 Tablet by mouth daily for 180 days. 08/30/20 24 025 Active fluticasone propionate (FLONASE) 50 mcg/actuation nasal spray Administer 1 spray into each nostril 1 (one) time each day. 11/03/20 23 Active hydroCHLOROthi azide (HYDRODIURIL) 25 mg tablet Take 1 tablet (25 mg total) by mouth 1 (one) time each day. 05/04/20 24 Active ipratropium-al buteroL (Combivent Respimat) 20-100 mcg/actuation inhaler Inhale 20 mcg into the lungs 4 times daily as needed (Shortness of breath or wheezing). This is a rescue or emergency medication. *Further refills from pulm 07/01/20 24 025 Active varenicline (CHANTIX) 1 mg tabletIndicati ons:Tobacco abuse Take 1 tablet (1 mg total) by mouth 2 (two) times a day. 60 each 1 11/05/20 24 Active atorvastatin (LIPITOR) 20 mg tablet Take 1 tablet (20 mg total) by mouth 1 (one) time each day. 08/24/20 24 Active traZODone (DESYREL) 50 mg tablet TAKE 1 TABLET BY MOUTH AT BEDTIME 90 tablet 1 12/10/19 25 Active amLODIPine (NORVASC) 5 mg tablet TAKE 1 TABLET BY MOUTH DAILY 90 tablet 1 12/10/19 25 Active umeclidinium-v ilanteroL (Anoro Ellipta) 62.5-25 mcg/actuation inhaler Inhale 1 puff by mouth 1 (one) time each day. 1 each 11 12/27/19 25 026 Active ipratropium-al buteroL (Combivent Respimat) 20-100 mcg/actuation inhaler Inhale 1 puff by mouth 4 (four) times a day. 1 each 11 12/27/19 25 026 Active folic acid (FOLVITE) 1 mg tablet TAKE 1 TABLET BY MOUTH DAILY 30 tablet 2 02/01/20 25 Active folic acid (FOLVITE) 1 mg tablet Take 1 tablet (1,000 mcg total) by mouth 1 (one) time each day. 30 each 2 11/05/20 24 025 Discontinued Active Problems Problem Noted Date Diagnosed Date [...] Overview (09/17/2024): Repaired and reoccurred IMO update Encounters Date Type Department Care Team Description 01/18/2025 9:45 AM EST Ancillary Procedure [facility] Cardiology [facility] [address] [phone] Bilateral carotid artery stenosis 01/14/2025 7:30 AM EST Ancillary Procedure [facility] [address] [id number] Abdominal aortic aneurysm (AAA) without rupture, unspecified part (CMS/HCC); Aortic ectasia, abdominal (CMS/HCC) 12/27/2024 1:00 PM EST Office Visit Pulmonolgy - [place] 175 [facility] [address] [place] [phone] Alison Cristina MD Chronic obstructive pulmonary disease, unspecified COPD type (CMS/HCC) (Primary Dx); Bullous emphysema (CMS/HCC); Lung nodules; Hypoxemia; Smoker from Last 3 Months Immunizations Name Administration Dates Next Due Influenza Quadravalent, 0.5m l (Fluzone High-dose) 65yo and older 12/04/2023 Influenza Quadravalent, MDCK , 0.5ml, preservative free (Flucelvax) 6mo and older 12/23/2019 Influenza Quadravalent, MDCK , 0.5ml, with preservative (Flucelvax) 6mo and older 09/16/2018 Influenza Quadrivalent, 0.5m l, preservative free (Fluarix; FluLaval; Fluzone) ages 6mo and older (Afluria) 3yo and older 11/26/2021 Influenza trivalent, 0.5mL ( Fluzone High-dose) 65yo and older 09/28/2024 Influenza trivalent, 0.5mL, preservative free (Fluarix; FluLaval; Fluzone) ages 6mo and older (Afluria) 3 years and older 12/23/2019 Influenza, Unspecified 11/26/2021 Pneumococcal conjugate 13 va lent (Prevnar 13, PCV13) 2mo and older 05/08/2022 Pneumococcal polysaccharide 23 valent (Pneumovax 23) 2yo and older 01/20/2020 RSV, bivalent, protein subun it RSVpreF, 0.5mL, Preservative Free (Arexvy) 60yo and older 09/28/2024 Td Tetanus diptheria (Tdvax) 7yo and older 12/01 Tdap Tetanus diptheria acell ular pertussis (Boostrix; Adacel) 7yo and older 01/20/2020,02/17/2008 Zoster recombinant (Shingrix) 19yo and older Surgical History Surgery Date Site/Laterality Comments APPENDECTOMY PROCEDURE: HISTORICAL APPENDECTOMY OTHER SURGICAL HISTORY 10/06/2007 PROCEDURE: COLON CA SCRN NOT HI RSK IND; COMMENT: negative TONSILLECTOMY PROCEDURE: HISTORICAL TONSILLECTOMY ESOPHAGOGASTRODUODENOSCOPY 2012 PROCEDURE: MI ESOPHAGOGASTRODUODENOSCOPY TRANSORAL DIAGNOSTIC; COMMENT: normal HERNIA REPAIR 2001 PROCEDURE: HISTORICAL HERNIA REPAIR/PRAVIN; COMMENT: no mesh Medical History Medical History Date Comments Hernia of unspecified site o f abdominal cavity without mention of obstruction or gangrene DX:Hernia of unspecified sit e of abdominal cavity without mention of obstruction or gangrene Diverticulosis of colon (wit hout mention of hemorrhage) 10/06/2007 DX:Diverticulosis of colon ( without mention of hemorrhage); COMMENT: Incidental finding at colonoscopy 10/06/2007. Special screening for malign ant neoplasms, colon 10/06/2007 DX:Special screening for mal ignant neoplasms, colon; COMMENT: Negative colonoscopy 10/06/2007, no colon cancer screening needed for 10 years. Hypertension 02/22/2011 DX:Hypertension Hypertension 02/22/2011 DX:Hypertension Insomnia 02/22/2011 DX:Insomnia Family History Medical History Relation Name Comments Diabetes Brother Breast cancer Mother Recurrence at 70 yrs, not sure if same or the other breast. Breast cancer Mother's side Aunt Relation Name Status Comments Brother Mother Mother's side Social History Tobacco Use Types Packs/Day Years Used Date Smoking Tobacco: Every Day Cigarettes 2 52.8 Started: 1972 Smokeless Tobacco: Never Tobacco Cessation:Ready to Q uit: Not Asked; Counseling Given: Not Answered Alcohol Use Standard Drinks/Week Comments Yes 0 (1 standard drink = 0.6 oz pur e alcohol) Sex and Gender Information Value Date Recorded Sex Assigned at Not on file Legal Sex Male 10:23 AM EST Gender Identity Not on file Sexual Orientation Not on file Obstetrics History Last Filed Vital Signs Vital Sign Reading Time Taken Comments Blood Pressure 138/82 12/27/2024 1:06 PM EST Pulse 94 12/27/2024 1:06 PM EST Temperature 36.2 ??C (97.2 ??F) 12/27/2024 1:06 PM ES T Respiratory Rate 20 12/27/2024 1:06 PM EST Oxygen Saturation 94% 12/27/2024 1:06 PM EST Inhaled Oxygen Concentration - - Weight 94.2 kg (207 lb 9.6 oz) 12/27/2024 1:06 P M EST Height 177.8 cm (5' 10 ) 12/27/2024 1:06 PM EST Body Mass Index 29.79 12/27/2024 1:06 PM EST Plan of Treatment Upcoming Encounters Date Type Department Care Team (Late st Contact Info) Description 03/25/2025 2:30 PM EDT Office Visit Vascular Surgery [facility] 300 [facility] [address] [place] [phone] Venancio Degroot MD 300 [facility] [address] [place] [address] 05/13/2025 2:30 PM EDT Office Visit Adult Medicine [address] [phone] Venancio Helm MD [address] [place] [phone] 06/30/2025 10:30 AM EDT Office Visit Pulmonolgy [facility] 175 [facility] [address] [place] [phone] Alison Cristina MD 175 [facility] 200 [place] [address] Health Maintenance Due Date Last Done Comments Zoster Vaccines (2 of 2) 02/17/2020 12/23/2019 Falls Risk Assessment 11/09/2022 Social Influencers of Health Screening 11/09/2022 Pneumococcal Vaccine: 50+ Years (3 of 3 - PPSV23, PCV20 or PCV21) 01/20/2025 05/08/2022, 01/20/2020 Depression Screening 05/04/2025 05/04/2024 Medicare Annual Wellness Visit 05/04/2025 05/04/2024 Hypertension/CHF/CAD Annual BMP Blood Test 11/05/2025 11/05/2024, 05/21/2023 Lung Cancer Screening (Low Dose CT) 11/16/2025 11/16/2024, 12/06/2023, 11/21/2022, Additional history exists Cholesterol Screening (Lipid Panel) 11/05/2029 11/05/2024, 05/21/2023 DTaP,Tdap,and Td Vaccines (4 - Td or Tdap) 01/20/2030 01/20/2020, 02/17/2008, 12/01/1997 Colorectal Cancer Screening: Colonoscopy 11/05/2032 11/05/2022 Hepatitis C Screening Completed 02/08/2003 COVID-19 Vaccine Completed 09/28/2024, 03/2024, 03/05/2021, Additional history exists Influenza Vaccine Completed 09/28/2024, , 11/26/2021, Additional history exists RSV Immunization Patients 60+ Years Old Completed 09/28/2024 HIB Vaccines Aged Out No longer eligi ble based on patient's age to complete this topic HPV Vaccines Aged Out No longer eligi ble based on patient's age to complete this topic Hepatitis A Vaccines Aged Out No long er eligible based on patient's age to complete this topic Hepatitis B Vaccines Aged Out No long er eligible based on patient's age to complete this topic IPV Vaccines Aged Out No longer eligi ble based on patient's age to complete this topic MMR Vaccines Aged Out No longer eligi ble based on patient's age to complete this topic Meningococcal ACWY Vaccine Aged Out N o longer eligible based on patient's age to complete this topic Meningococcal B Vacine Aged Out No lo nger eligible based on patient's age to complete this topic RSV Immunization Patients Under 20 months Aged Out No longer eligible based on patient's age to complete this topic Varicella Vaccines Aged Out No longer eligible based on patient's age to complete this topic Procedures Procedure Name Priority Date/Time Associated Diagnosis Comments VAS US DUPLEX CAROTID BILATERAL Routine 01/18/2025 10:07 AM EST Bilateral carotid artery stenosis VAS US DUPLEX AORTA/IVC/ILIAC/GRAFT S COMPLETE Routine 01/14/2025 8:06 AM EST Abdominal aortic aneurysm (AAA) without rupture, unspecified part (CMS/HCC) Aortic ectasia, abdominal (CMS/HCC) CT LUNG SCREENING Routine 11/16/2024 1:5 9 PM EST Encounter for screening for malignant neoplasm of respiratory organs Nicotine dependence, cigarettes, uncomplicated COMPREHENSIVE METABOLIC PANEL Routine 11/05/2024 3:29 PM EST Primary hypertension Encounter for long-term (current) use of medications LIPID PANEL WITH REFLEX TO DIRECT LDL Routine 11/05/2024 3:29 PM EST High cholesterol HM DEPRESSION SCREENING Routine 05/04/2024 COLONOSCOPY Routine 11/05/2022 HEPATITIS C SCREENING Routine 02/08/2003 from Last 3 Months or Most Recently Relevant to Health Maintenance Results * Vascular US duplex carotid bilateral (01/18/2025 10:07 AM EST) Left CCA dist sys 72 cm/s CV VAS LAB Left CCA dist kerns 18 cm/s CV VAS LAB LEFT COMMON CAROTID ARTERY MID S 79 cm/s CV VAS LAB LEFT COMMON CAROTID ARTERY MID D 25 cm/s CV VAS LAB Left CCA prox sys 95 cm/s CV VAS LAB Left CCA prox kerns 32 cm/s CV VAS LAB Left ICA dist sys 77 cm/s CV VAS LAB Left ICA dist kerns 26 cm/s CV VAS LAB Left ICA mid sys 80 cm/s CV VAS LAB Left ICA mid kerns 24 cm/s CV VAS LAB Left ICA prox sys 59 cm/s CV VAS LAB Left ICA prox kerns 14 cm/s CV VAS LAB Left ECA sys 113 cm/s CV VAS LAB LEFT EXTERNAL CAROTID ARTERY D 28 cm/s CV VAS LAB Left Prox Subclavian PSV 177 cm/s CV VAS LAB Left vertebral sys 35 cm/s CV VAS LAB Right cca dist sys 62 cm/s CV VAS LAB Right CCA dist kerns 14 cm/s CV VAS LAB RIGHT COMMON CAROTID ARTERY MID S 71 cm/s CV VAS LAB RIGHT COMMON CAROTID ARTERY MID D 17 cm/s CV VAS LAB Right CCA prox sys 103 cm/s CV VAS LAB Right CCA prox kerns 23 cm/s CV VAS LAB Right ICA dist sys 85 cm/s CV VAS LAB Right ICA dist kerns 34 cm/s CV VAS LAB Right ICA mid sys 75 cm/s CV VAS LAB Right ICA mid kerns 32 cm/s CV VAS LAB Right ICA prox sys 40 cm/s CV VAS LAB Right ICA prox kerns 16 cm/s CV VAS LAB Right eca sys 119 cm/s CV VAS LAB RIGHT EXTERNAL CAROTID ARTERY D 24 cm/s CV VAS LAB Right Prox Subclavian PSV 96 cm/s CV VAS LAB Right vertebral sys 44 cm/s CV VAS LAB RIGHT VERTEBRAL ARTERY D 14 cm/s CV VAS LAB Anatomical Region Laterality Modality Vascular, Abdomen Ultrasound Narrative 01/19/2025 8:51 PM EST ?Right ICA: There is minimal heterogeneous plaque. ?Left ICA: There is minimal heterogeneous plaque. RIGHT. 1. There is minimal atherosclerotic plaque in the right carotid system as noted above. 2. There is a < 50% stenosis in the right internal carotid artery based on Doppler velocity. 3. The subclavian artery has normal Doppler flow velocity. 4. The vertebral artery has normal Doppler flow patterns with antegrade ?? flow. LEFT. 1. There is minimal atherosclerotic plaque in the left carotid system as noted above. 2. There is a < 50% stenosis in the left internal carotid artery based on Doppler velocity. 3. The subclavian artery has normal Doppler flow velocity. 4. The vertebral artery has normal Doppler flow patterns with antegrade ?? flow. Interpretation was done according to the [place] Symptomatic Carotid Endarterectomy Trial (NASCET) criteria ??and the Consensus Panel Grayscale and Doppler Ultrasound criteria for diagnosis of internal carotid artery stenosis. ??Please note that there are no clear criteria validated for the common carotid artery stenosis. Right Carotid The CCA has minimal heterogeneous plaque. The ICA has minimal heterogeneous plaque. The ECA has minimal heterogeneous plaque. Vertebral flow is antegrade. Left Carotid The CCA has minimal heterogeneous plaque. The ICA has minimal heterogeneous plaque. The ECA has minimal heterogeneous plaque. Vertebral flow is antegrade. Pharmaceutical Engineer Details A donald scale, color and doppler analysis ultrasound was performed. During the study longitudinal and transverse views were obtained. Pulsed wave doppler was performed. Overall the study quality was adequate. us Venancio Degroot MD CV VASCULAR PROCEDURES Final Re sult * Vascular US duplex aorta/IVC/iliac/grafts complete (01/14/2025 8:06 AM EST) Abdominal dist aorta reynaldo 34 cm/s CV V[facility] LAB Abdominal mid aorta reynaldo 173 cm/s CV VAS LAB Abdominal prox aorta reynaldo 38 cm/s CV VAS LAB Abdominal prox aorta AP 2.72 cm CV VAS LAB Proximal Aorta Long Diameter 2.72 cm CV VAS LAB Abdominal mid aorta AP 1.88 cm CV VAS LAB Mid Aorta Long Diameter 1.83 cm CV VAS LAB Abdominal dist aorta AP 3.01 cm CV VAS LAB Dist Aorta Long Diameter 3.04 cm CV VAS LAB Abdominal rt com iliac AP 1.63 cm CV VAS LAB Right Common Iliac Long Diameter 1.61 cm CV VAS LAB Right Prox Common Iliac PSV 110 cm/s CV VAS LAB Abdominal lt com iliac AP 1.58 cm CV VAS LAB Left Common Iliac Long Diameter 1.61 cm CV VAS LAB Left Prox Common Iliac PSV 174 cm/s CV VAS LAB Anatomical Region Laterality Modality Vascular, Abdomen Ultrasound Narrative 01/16/2025 8:23 PM EST A small aneurysm in distal segment of the abdominal aorta. The proximal segment of the abdominal aorta is ectatic. The mid segment is not well visualized. The flow waveform has monophasic, low resistance morphology, suggesting significant stenosis proximally. Right common iliac artery has monophasic waveform, suggestive significant stenosis proximally. Left common iliac artery has normal flow velocity. Pharmaceutical Engineer Details A donald scale, color and doppler analysis ultrasound was performed. During the study longitudinal and transverse views were obtained. Continuous wave doppler and pulsed wave doppler was performed. Overall the study quality was poorly visualized and technically difficult. Study was technically difficult due to: acoustic shadowing, body habitus and bowel gas. us Venancio Degroot MD CV VASCULAR PROCEDURES Final Re sult * CT Lung Screening (11/16/2024 1:59 PM EST) Anatomical Region Laterality Modality Chest Computed Tomogra phy 11/18/2024 8:57 AM EST Impressions 11/18/2024 9:06 AM EST Resolved left loculated pneumothorax along the major fissure. There are no suspicious pulmonary nodules. Reactive mediastinal lymph nodes, stable Lung RADS category: 2 benign, benign. Recommendation: Low-dose annual CT chest. -------- FINAL REPORT -------- Dictated By: Basim Boykin Dictated Date: 11/18/2024 08:57 ET Assigned Physician: Basim Boykin Reviewed and Electronically Signed By: Basim Boykin Signed Date: 11/18/2024 09:06 ET Workstation ID: [id number] Transcribed By: Self Edit Transcribed Date: 11/18/2024 08:57 ET Narrative 11/18/2024 9:06 AM EST EXAMINATION: CT lung screening. CLINICAL INDICATION: Smoker since 1971. 2 pack per day for 52 years. COMPARISON: CT lung screening 11/23/2023. TECHNIQUE: 2.5 mm thin axial and reformatted 3 mm thin sagittal and coronal images of chest were obtained without contrast. Scanner: [employer] 64 slice VCT Dose reduction technique: ASIR (Adaptive statistical iterative reconstruction) and/or AEC (automated exposure control) Dose: total exam DLP 188 mGy/cm. FINDINGS: LUNGS: There is paraseptal emphysema with lingular platelike atelectasis. Minimal patchy atelectasis seen in the dependent segment of left lower lobe. There are no pulmonary nodules, mass or consolidation. Pleura: There is no pleural effusion, thickening or calcification. Previously visualized loculated tiny pneumothorax along the left major fissure has resolved and not visualized. Mediastinum: Thyroid lobes are symmetric and normal. The central trachea and bronchi are widely patent. Heart size and pulmonary vascularity is normal. Ascending aorta measures 4.3 x 4.4 cm. There are numerous mediastinal lymph nodes the largest short axis precarinal lymph node measures 1 cm. Mild coronary artery calcifications are noted. No pericardial effusion seen. There is no hilar hernia. Axilla: Small shotty lymph nodes, nonspecific. The chest wall is unremarkable. Osseous structures: No aggressive lytic or sclerotic process. Upper abdomen: Visualized liver, spleen, pancreas and adrenal glands are unremarkable. Procedure Note Basim Boykin MD - 11/18/2024 EXAMINATION: CT lung screening. CLINICAL INDICATION: Smoker since 1971. 2 pack per day for 52 years. COMPARISON: CT lung screening 11/23/2023. TECHNIQUE: 2.5 mm thin axial and reformatted 3 mm thin sagittal andcoronal images of chest were obtained without contrast. Scanner: [employer] 64 slice VCT Dose reduction technique: ASIR (Adaptive statistical iterativereconstruction) and/or AEC (automated exposure control) Dose: total exam DLP 188 mGy/cm. FINDINGS: LUNGS: There is paraseptal emphysema with lingular platelike atelectasis.Minimal patchy atelectasis seen in the dependent segment of left lowerlobe. There are no pulmonary nodules, mass or consolidation. Pleura: There is no pleural effusion, thickening or calcification.Previously visualized loculated tiny pneumothorax along the left majorfissure has resolved and not visualized. Mediastinum: Thyroid lobes are symmetric and normal. The central tracheaand bronchi are widely patent. Heart size and pulmonary vascularity isnormal. Ascending aorta measures 4.3 x 4.4 cm. There are numerousmediastinal lymph nodes the largest short axis precarinal lymph nodemeasures 1 cm. Mild coronary artery calcifications are noted. Nopericardial effusion seen. There is no hilar hernia. Axilla: Small shotty lymph nodes, nonspecific. The chest wall isunremarkable. Osseous structures: No aggressive lytic or sclerotic process. Upper abdomen: Visualized liver, spleen, pancreas and adrenal glands areunremarkable. IMPRESSION: Resolved left loculated pneumothorax along the major fissure. There are nosuspicious pulmonary nodules. Reactive mediastinal lymph nodes, stable Lung RADS category: 2 benign, benign. Recommendation: Low-dose annual CT chest. -------- FINAL REPORT -------- Dictated By: Basim Boykin Dictated Date: 11/18/2024 08:57 ET Assigned Physician: Basim Boykin Reviewed and Electronically Signed By: Basim Boykin Signed Date: 11/18/2024 09:06 ET Workstation ID: [id number] Transcribed By: Self Edit Transcribed Date: 11/18/2024 08:57 ET Anthony Bliss MD [facility] CT PROCEDURES Final Result * (ABNORMAL) Lipid panel with reflex to direct LDL (11/05/2024 3:29 PM EST) Cholesterol 178 0 - 200 mg/dL LAB CHEMISTRY METHOD 11/05/2024 7:13 PM [facility] Triglycerides 380(H) 0 - 150 mg/dL LAB CHEMISTRY METHOD 11/05/2024 7:13 PM [facility] HDL 70 >=40 mg/dL LAB CHEMISTRY METHOD 11/05/2024 7:13 PM [facility] LDL Calculated 32 0 - 100 mg/dL LAB CHEMISTRY METHOD 11/05/2024 7:13 PM [facility] VLDL Cholesterol Lauro 76 mg/dL LAB CHEMISTRY METHOD 11/05/2024 7:13 PM [facility] Non HDL Chol. (LDL+VLDL) 108 <145 mg/dL LAB CHEMISTRY METHOD 11/05/2024 7:13 PM [facility] Chol/HDL Ratio 2.5 0.0 - 4.4 LAB CHEMISTRY METHOD 11/05/2024 7:13 PM [facility] Blood Venous blood specimen / Unknown Venipuncture / Unknown 11/05/2024 3:29 PM EST 11/05/2024 3:29 PM EST us Venancio Helm MD LAB BLOOD ORDERABLES Final Resu lt [facility] [address] [place] [address], [place] [phone] * (ABNORMAL) Comprehensive metabolic panel (11/05/2024 3:29 PM EST) Sodium 138 133 - 145 mmol/L LAB CHEMISTRY METHOD 11/05/2024 7:13 PM [facility] Potassium 3.9 3.5 - 5.5 mmol/L LAB CHEMISTRY METHOD 11/05/2024 7:13 PM [facility] Chloride 102 96 - 110 mmol/L LAB CHEMISTRY METHOD 11/05/2024 7:13 PM [facility] CO2 30 21 - 32 mmol/L LAB CHEMISTRY METHOD 11/05/2024 7:13 PM [facility] Anion Gap 6 3 - 11 LAB CHEMISTRY METHOD 11/05/2024 7:13 PM [facility] Glucose 107(H) 70 - 100 mg/dL LAB CHEMISTRY METHOD 11/05/2024 7:13 PM [facility] BUN 15 5 - 25 mg/dL LAB CHEMISTRY METHOD 11/05/2024 7:13 PM [facility] Creatinine 0.88 0.70 - 1.30 mg/dL LAB CHEMISTRY METHOD 11/05/2024 7:13 PM [facility] eGFR 94 >=60 mL/min/1. 73m2 LAB CHEMISTRY METHOD 11/05/2024 7:13 PM [facility] Comment:Calculation based on the??Chronic Kidney Disease Epidemiology Collaboration (CKD-EPI) equation refit??without adjustment for race. BUN/Creatinine Ratio 17.0 LAB CHEMISTRY METHOD 11/05/2024 7:13 PM [facility] Calcium 9.4 8.5 - 10.5 mg/dL LAB CHEMISTRY METHOD 11/05/2024 7:13 PM [facility] AST (SGOT) 32 10 - 42 unit/L LAB CHEMISTRY METHOD 11/05/2024 7:13 PM [facility] ALT (SGPT) 32 10 - 60 unit/L LAB CHEMISTRY METHOD 11/05/2024 7:13 PM [facility] Alkaline Phosphatase 95 42 - 121 unit/L LAB CHEMISTRY METHOD 11/05/2024 7:13 PM [facility] Total Protein 7.5 6.0 - 8.0 g/dL LAB CHEMISTRY METHOD 11/05/2024 7:13 PM [facility] Albumin 3.8 3.2 - 5.0 g/dL LAB CHEMISTRY METHOD 11/05/2024 7:13 PM [facility] Total Bilirubin 0.4 0.0 - 1.4 mg/dL LAB CHEMISTRY METHOD 11/05/2024 7:13 PM [facility] Blood Venous blood specimen / Unknown Venipuncture / Unknown 11/05/2024 3:29 PM EST 11/05/2024 3:29 PM EST Venancio Helm MD LAB BLOOD ORDERABLES Final Resu lt [facility] [address] [place] [address], * Depression Screening (05/04/2024) Pathologist [facility] Depression Screening abstracted Historical Provider HEALTH MAINTENANCE Final Result * Colonoscopy (11/05/2022) Pathologist [facility] Colonoscopy no interpreta tion,abstr acted Anatomical Region Laterality Modality Other Historical Provider HEALTH MAINTENANCE Final Result * Hepatitis C Screening (02/08/2003) Pathologist [facility] Hepatitis C Screening abstracted Historical Provider HEALTH MAINTENANCE Final Result from Last 3 Months or Most Recently Relevant to Health Maintenance Insurance MEDICARE [facility] Care Teams Oven Dauber Relationship Specialty Start Date End Date Venancio Helm MD [address] [place] [id number] PCP - General Internal Medicine 05/01/1997
== END 2025-02-23 13:11 | disposition home or self-care (01) ==
LOC: HO.HCS 12:41
PROVIDERS: PCP Internal Medicine; Visit Provider Internal Medicine Cardiovascular Disease
DX: I10 Essential (primary) hypertension (principal); F17.200 Nicotine dependence, unspecified, uncomplicated; I77.810 Thoracic aortic ectasia
CPT/HCPCS: 99214; G2211

== ENCOUNTER → 2025-02-23 12:40 | Outpatient (BNVA) | payer MEDICARE, SELFPAY | PROVIDERS: PCP Internal Medicine; Visit Provider Internal Medicine Cardiovascular Disease | DX: I10 Essential (primary) hypertension (principal); R42 Dizziness and giddiness; J44.9 Chronic obstructive pulmonary disease, unspecified; F17.210 Nicotine dependence, cigarettes, uncomplicated; Z71.6 Tobacco abuse counseling; Z87.09 Personal history of other diseases of the respiratory system; Z79.01 Long term (current) use of anticoagulants | CPT/HCPCS: 99212 ==

== ENCOUNTER 2025-05-08 16:03 | Outpatient (REF) | payer MEDICARE, SELFPAY ==
--- NOTE | ~2025-05-08 | MR_ITS ---
EXAMINATION: MR BRAIN WITHOUT THEN WITH IV CONTRAST HISTORY: DIZZINESS TECHNIQUE: Sagittal T1, and axial T1, FLAIR, T2, gradient echo, and diffusion weighted MR images of the brain were obtained. Subsequently, axial, and coronal T1-weighted images were obtained after the administration of intravenous gadolinium. 10 mL Gadavist was administered. COMPARISON: Comparison is made with the prior examination dated 04/21/2024. FINDINGS: There is diffuse prominence of the ventricular system and cortical sulci, consistent with atrophy. Periventricular and subcortical white matter hyperintensities are noted on the FLAIR and T2-weighted images which are nonspecific, but often seen in the setting of small vessel ischemic disease. There are old lacunar infarcts of the bilateral basal ganglia. There is no mass effect or midline shift. No intra or extra-axial fluid collections are identified. There are no foci of restricted diffusion. Again seen is a partially empty sella. There is no abnormal contrast enhancement. Normal vascular flow voids are noted in the basilar and carotid arteries. The visualized paranasal sinuses are clear. MR/MR head/brain wo/w con IMPRESSION: No acute intracranial abnormality. No abnormal contrast enhancement. Electronically signed by: Antonio Jauregui MD 05/09/2025 11:13 AM EDT
--- OUTSIDE RECORDS SUMMARY | 2025-05-08 16:05 | XMS_ITS ---
Author Organization 175 [facility] Address [address] [place] [address] Phone Care Team Providers Care Fire Chief'S Aide Name Role Phone Venancio Helm MD Primary Care Provider [phone] Active Problems Problem Noted Date Diagnosed Date TIA (transient ischemic attack) 11/05/2024 Carotid ulcer, left 11/05/2024 Weakness of both lower extremities 11/05/2024 Basal cell carcinoma 03/12/2022 Overview (09/17/2024): Left lower eyelid. Centrilobular emphysema (CMS/HCC V24, CMS/HCC V2 8) 11/27/2018 Stage 2 moderate COPD by GOL D classification (CMS/HCC V24, CMS/HCC V28) 11/27/2018 Ground glass opacity present on imaging of lung 11/27/2018 Nicotine dependence, uncomplicated 11/27/2018 Chronic obstructive pulmonar y disease (CMS/HCC V24, CMS/HCC V28) 10/15/2017 Environmental and seasonal allergies 08/21/2017 Cyclical vomiting with nausea 12/17/2016 Umbilical hernia 07/11/2014 Vomiting 03/03/2014 Lacunar infarction (CMS/HCC V24, CMS/HCC V28) Overview (09/17/2024): Follows with neurology (sam) on [...] treatments are documented for this patient in [facility]. Treatments may have been administered in another system. Lifetime Dose Tracking * Chemical Lifetime Dose Automatic Entry Manual Entr y Radiation (DLP) 193.02 mGy-cm 193.02 mGy-cm 0 mGy-cm CTDIvol 4.83 mGy 4.83 mGy 0 mGy
[2025-05-08] MEDS: gadobutroL 10 ML VIAL IVPUSH (16:50)
== END 2025-05-08 16:04 | disposition home or self-care (01) ==
LOC: HO.MRI 16:03
PROVIDERS: PCP Internal Medicine; Visit Provider Psychiatry & Neurology Neurology
DX: R42 Dizziness and giddiness (principal)
CPT/HCPCS: 70553; A9585

== ENCOUNTER → 2025-05-08 16:18 | Outpatient (BNV) | payer MEDICARE, SELFPAY | PROVIDERS: PCP Internal Medicine; Visit Provider Radiology Diagnostic Radiology | DX: R42 Dizziness and giddiness (principal) | CPT/HCPCS: 70553 ==

== ENCOUNTER 2025-06-21 12:42 | Outpatient (AMB) | payer MEDICARE, SELFPAY ==
[2025-06-21 12:52] VITALS: BP 120/72; PULSE 93; BMI 28.0
--- NOTE | 2025-06-21 12:52 | MHC.OFFVIS ---
Vital Signs 06/21/25 12:52 Height 5 ft 10 in Weight 195 lb 5.273 oz BMI 28.0 BP 120/72 Blood Pressure Location Lt brachial Position Sitting Pulse 93 Pulse Source Pulse Oximeter Intake Visit Reasons: 4m follow up Net Developer Required: No Allergies No Known Allergies Allergy (Verified 06/21/25 12:57) Medication List - Last Reconciled 06/21/25 by Isatu Santiago, YOUTH SUPPORT WORKER-C amlodipine 5 mg PO DAILY atorvastatin 20 mg PO BEDTIME clopidogrel 75 mg PO DAILY folic acid 1 mg PO DAILY hydrochlorothiazide 25 mg PO DAILY ipratropium-albuterol 20-100 mcg/actuation (Combivent Respimat) 1 puff inhalation QID nicotine 21 mg transdermal DAILY trazodone 1 tab PO BEDTIME umeclidinium-vilanterol 62.5-25 mcg/actuation (Anoro Ellipta) 1 puff inhalation DAILY HPI HPI 4m follow up: Details: Nader is a 70-year-old male with past medical history of hypertension, COPD, smoking, dilated ascending aorta, constrictive pericarditis, TIA who presents for follow-up. Today he reports he has been doing well since his last visit in January. He has had no recurrent neurological changes. He continues to smoke 1.5 packs of cigarettes per day and drink 3 alcoholic beverages each night. He has some shortness of breath with exertion which is not new. No chest discomfort at rest or with activity. No heart palpitations, dizziness, presyncope, syncope, PND, orthopnea or edema. Taking meds as directed. Following with neurology. [facility] Medical History Supplemental oxygen dependent Alcohol dependence Tobacco use disorder Pneumonia Sepsis Chronic respiratory failure Pleural effusion Acute pericardial effusion Chest pain HTN (hypertension) COPD (chronic obstructive pulmonary disease) Surgical History History of eyelid surgery History of appendectomy History of tonsillectomy H/O hernia repair Family History Mother No problems noted. Father No problems noted. Brother Gout Social History Household Members: None Housing: House Do you presently have visiting nurse or other home services: No Alcohol intake: current Alcohol intake frequency: 3 or more drinks per day Alcohol type: hard liquor Patient Tobacco Use Status: Current everyday Tobacco user Tobacco use type: Cigarette Cigarette Packs Per Day: 1.5 Cigarettes Per Day: 30 Years Smoked: 52 +/- Substance Use Type: Marijuana service: No Current occupational status: retired Review of Systems Const All systems reviewed & are unremarkable except as noted in HPI and below ENT Denies dizziness Card Denies chest pain, Denies chest pain at rest, Denies chest pain with activity, Denies rapid heart rate, Denies pedal edema, Denies edema, Denies leg edema, Denies lightheadedness, Denies palpitations, Reports dyspnea, Reports dyspnea on exertion and Denies orthopnea Resp Denies cough, Reports dyspnea and Reports dyspnea on exertion GI Denies hematochezia and Denies change in stool character Musc Denies abnormal gait, Denies limited range of motion, Denies muscle cramps, Denies muscle weakness, Denies numbness, Denies radiating pain into limb, Denies stiffness and Denies tingling Neuro Denies abnormal gait, Denies dizziness, Denies numbness and Denies tingling Endo Denies palpitations Physical Exam Vital Signs: Last Vital Signs Pulse 93 06/21/25 12:52 BP 120/72 06/21/25 12:52 BMI result Body Mass Index 28.0 Const General: cooperative, healthy appearing, comfortable and no acute distress Orientation/consciousness: patient oriented x3 Neck Neck: Yes normal visual inspection Resp Effort & Inspection: normal respiratory effort Auscultation: clear to auscultation bilaterally, no crackles, no rales, no rhonchi and no wheezes Cardio Jugular venous distension: no JVD Rate: regular rate Rhythm: regular rhythm Heart sounds: S1 normal heart sound present, S2 normal heart sound present, no murmurs and no rubs Neuro General: patient oriented x3 Extrem General: Yes normal to inspection, No no pedal edema and No calf tenderness Psych Appearance: grossly normal Mental Status: mental status grossly normal Speech and movement: Normal speech and movement present Assessment & Plan Assessment & Plan (1) Transient cerebral ischemia: Code(s): G45.9 - Transient cerebral ischemic attack, unspecified Category: Medical Plan: [facility] admission 03/2024 with difficulty speaking and numbness in his left upper extremity, lasting 1 hour before resolving: TIA. CTA of the brain showed no acute intracranial abnormalities, hemorrhage or acute infarct. CTA of the neck did show a newly identified ulcerative atherosclerotic plaque measuring 3 mm at the origin of the left ICA, no occlusion or approximated thrombus, nonocclusive non ulcerative mixed calcified and noncalcified plaque at the origin of the right ICA. An MRI of the brain showed no acute findings, mild chronic microvascular ischemic change. He was evaluated by Neurology. There note does include rule out embolic phenomenon due to language symptoms as well as peripheral. During his hospitalization he had an echocardiogram with bubble study which showed no intra-atrial shunt. Telemetry monitoring showed no arrhythmia of concern. Cardiac event monitor done 09/06/2024 showing sinus rhythm with average heart rate 85, frequent sinus tachycardia, 34%, no atrial fibrillation. Pulse is regular on examination today. No recurrent neurological events. Discussed smoking cessation. Continue Plavix 75 mg daily. Continue atorvastatin. Will recheck Holter to assess for asymptomatic PAF. Cardiology office visit 6 months, sooner if needed. 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 Last full echo 04/21/2024 shows normal EF, no pericardial effusion. (3) Pericardial effusion: Code(s): I31.3 - Pericardial effusion (noninflammatory) Category: Medical Plan: As above (4) Essential hypertension: Code(s): I10 - Essential (primary) hypertension Category: Medical Plan: Blood pressure goal less than 130/80. Well controlled at present time. No med changes made today. (5) OLIVEIRA (dyspnea on exertion): Code(s): R06.09 - Other forms of dyspnea Category: Medical Plan: As above. He continues to smoke 1.5 pack of cigarettes per day. He tells me he does follow with pulmonology and is working on cigarette reduction. (6) Tobacco use disorder: Code(s): F17.200 - Nicotine dependence, unspecified, uncomplicated Category: Medical Plan: As above (7) Ascending aorta dilation: Code(s): I77.810 - Thoracic aortic ectasia Category: Medical Plan: Echocardiogram in 2020 shows ascending aorta 4 cm. Echocardiogram 08/20/2023 shows ascending aorta 4.2 cm. Echocardiogram done during hospitalization 04/21/2024 showed ascending aorta 4.2 cm. Outpatient limited echo that had been previously scheduled was done on 08/04/2024 again showing ascending aorta 4.2 cm. Has been stable. Blood pressure is well controlled. Will recheck echo prior to next visit (8) Hyperlipidemia: Code(s): E78.5 - Hyperlipidemia, unspecified Category: Medical Plan: [place] LDL goal less than 100. He is on atorvastatin 20 mg daily. Labs followed by PCP. Plan Time spent on chart review, documentation, interview assessment Orders: Orders ECG 5 day holter monitor Today G45.9 - Transient cerebral ischemic attack, unspecified, R06.09 - Other forms of dyspnea CA echo transthoracic complete 12/01/25 I31.3 - Pericardial effusion (noninflammatory), I77.810 - Thoracic aortic ectasia Coding Level of Care Code Est Pt Level 4 (63230) Complex EM visit Add On G2211 Diagnoses Transient cerebral ischemia G45.9 Constrictive pericarditis I31.1 Pericardial effusion I31.3 Essential hypertension I10 OLIVEIRA (dyspnea on exertion) R06.09 Tobacco use disorder F17.200 Ascending aorta dilation I77.810 Hyperlipidemia E78.5 Time Spent (min) 32
--- OUTSIDE RECORDS SUMMARY | 2025-06-21 13:43 | XMS_ITS ---
Author Organization 175 [facility] Address [address] [place] [address] Phone Care Team Providers Care Metaphysicist Name Role Phone Venancio Helm MD Primary Care Provider [phone] Active Problems Problem Noted Date Diagnosed Date [...] treatments are documented for this patient in [facility]. Treatments may have been administered in another system. Lifetime Dose Tracking * Chemical Lifetime Dose Automatic Entry Manual Entr y Radiation (DLP) 193.02 mGy-cm 193.02 mGy-cm 0 mGy-cm CTDIvol 4.83 mGy 4.83 mGy 0 mGy
== END 2025-06-21 13:19 | disposition home or self-care (01) ==
LOC: HO.HCS 12:42
PROVIDERS: PCP Internal Medicine; Visit Provider Nurse Practitioner Family
DX: G45.9 Transient cerebral ischemic attack, unspecified (principal); I31.1 Chronic constrictive pericarditis; I31.39 Other pericardial effusion (noninflammatory); I10 Essential (primary) hypertension; R06.09 Other forms of dyspnea; F17.200 Nicotine dependence, unspecified, uncomplicated; I77.810 Thoracic aortic ectasia; E78.5 Hyperlipidemia, unspecified
CPT/HCPCS: 99214; G2211

== ENCOUNTER → 2025-06-21 12:42 | Outpatient (BNVA) | payer MEDICARE, SELFPAY | PROVIDERS: PCP Internal Medicine; Visit Provider Nurse Practitioner Family | DX: I31.1 Chronic constrictive pericarditis (principal); I31.39 Other pericardial effusion (noninflammatory); I10 Essential (primary) hypertension; R06.09 Other forms of dyspnea; I77.810 Thoracic aortic ectasia; E78.5 Hyperlipidemia, unspecified; F17.210 Nicotine dependence, cigarettes, uncomplicated; Z86.73 Personal history of transient ischemic attack (TIA), and cerebral infarction without residual deficits | CPT/HCPCS: 99212 ==

== ENCOUNTER → 2025-07-18 11:22 | Outpatient (REF) | payer MEDICARE, SELFPAY ==
--- NOTE | 2025-07-18 11:25 | HM_ITS ---
* Total monitoring time 6 days. * Underlying rhythm is sinus with an average rate of 88/Min. * Rare supraventricular ectopy. Three very short runs. Longest 31 beats. Max rate 141/Min. * Rare ventricular ectopy. One couplet. One run of 8 beats. Monomorphic. * No significant pauses or high-grade AV blocks. * No patient markers or diary events. MTDD
--- OUTSIDE RECORDS SUMMARY | 2025-07-18 12:41 | XMS_ITS ---
Author Name [facility] Organization Unknown Care Team Organization Name Specialty Phone Email Start Date End Da te [facility]E [facility] Primary Care 10/08/2022 4
--- OUTSIDE RECORDS SUMMARY | 2025-07-18 12:41 | XMS_ITS ---
Author Organization 175 [facility] Address [address] [place] [address] Phone Care Team Providers Care Airplane Designer Name Role Phone Venancio Helm MD Primary Care Provider [phone] Active Problems Problem Noted Date Diagnosed Date [...] treatments are documented for this patient in [facility]. Treatments may have been administered in another system. Lifetime Dose Tracking * Chemical Lifetime Dose Automatic Entry Manual Entr y Radiation (DLP) 193.02 mGy-cm 193.02 mGy-cm 0 mGy-cm CTDIvol 4.83 mGy 4.83 mGy 0 mGy
== END ==
LOC: HO.CARD 11:22
PROVIDERS: PCP Internal Medicine; Visit Provider Nurse Practitioner Family
DX: R06.09 Other forms of dyspnea (principal); G45.9 Transient cerebral ischemic attack, unspecified
CPT/HCPCS: 93242

== ENCOUNTER → 2025-07-18 11:25 | Outpatient (BNV) | payer MEDICARE, SELFPAY | PROVIDERS: PCP Internal Medicine; Visit Provider Internal Medicine | DX: I47.10 Supraventricular tachycardia, unspecified (principal); I49.3 Ventricular premature depolarization | CPT/HCPCS: 93244 ==

== ENCOUNTER 2025-09-12 07:06 | Emergency (ER) | payer MEDICARE, SELFPAY ==
--- NOTE | ~2025-09-12 | XR_ITS ---
CLINICAL HISTORY: cough Chest radiographs, 2 views Comparison: None provided Findings: The cardiomediastinal silhouette is not enlarged. Pulmonary vascularity is unremarkable. No focal consolidation or effusion. No pneumothorax. IMPRESSION: No acute cardiopulmonary findings. This document has been electronically signed by: Didier Severino DO on 09/12/2025 10:32:35
--- NOTE | ~2025-09-12 | XR_ITS ---
CLINICAL HISTORY: lumbar back pain 3 views lumbar spine Comparison: None provided Findings: The usual lumbar lordosis is maintained without spondylolisthesis. 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 Vertebral body heights are maintained. Multilevel lumbar discogenic degenerative disease and lower lumbar predominant facet osteoarthritis. Mild left hip osteoarthritis. Calcific atherosclerosis. Ventral hernia repair. IMPRESSION: No acute findings. Multilevel degenerative changes. This document has been electronically signed by: Didier Severino DO on 09/12/2025 10:31:59
[2025-09-12 07:15] VITALS: BP 151/90; PULSE 73; RESP 18; TEMP 36.6; O2SAT 93; BMI 28.4
--- NOTE | 2025-09-12 07:35 | ED.BACK ---
HPI - Back Pain/Injury General Chief Complaint: Back Pain/Injury Stated Complaint: back pain Time Seen by Provider: 09/12/25 07:35 Source: patient, RN notes reviewed and old records reviewed Mode of arrival: EMS Limitations: no limitations History of Present Illness ED Provider: TRISTON Corona HPI Narrative: 70 year old Male with medical history of HLD, HTN, COPD, presents to the ED due to 10 days of lumbar back pain. Patient states pain started on 09/02, he woke up asymptomatic but as the day progressed noticed right-sided lumbar back pain. Patient states he has been taking Tylenol/ibuprofen, and using heating pad without relief. Patient was recently seen at urgent care on 09/08 had x-rays taken without acute findings and was prescribed a course of prednisone, and Flexeril. Patient states he has not taken the Flexeril as he was worried that it would interact with his other medications. Patient states yesterday back pain has become progressively worsening and is now traveling down the posterior right thigh. Denies history of IVDU, increased physical activity or trauma/injury/fall, saddle paresthesias, bowel/bladder incontinence, fevers, chills, chest pain, shortness of breath Related Data Home Medications ?Medication ?Instructions ?Recorded ?Confirmed trazodone 50 mg tablet 1 tab PO BEDTIME 11/25/21 06/21/25 umeclidinium 62.5 mcg-vilanterol 1 puff inhalation DAILY 11/25/21 06/21/25 25 mcg/actuation powdr for inhalation (Anoro Ellipta) hydrochlorothiazide 25 mg tablet 25 mg PO DAILY 12/24/21 06/21/25 folic acid 1 mg tablet 1 mg PO DAILY 08/26/23 06/21/25 ipratropium 20 mcg-albuterol 100 1 puff inhalation QID 08/24/24 06/21/25 mcg/actuation mist for inhalation (Combivent Respimat) Previous Rx's ?Medication ?Instructions ?Recorded amlodipine 5 mg tablet 5 mg PO DAILY #90 tabs 04/08/23 nicotine 21 mg/24 hr daily 21 mg transdermal DAILY #30 ea 04/22/24 transdermal patch clopidogrel 75 mg tablet 75 mg PO DAILY #1 tab 02/23/25 atorvastatin 20 mg tablet 20 mg PO BEDTIME #90 tabs 04/18/25 Allergies Allergy/AdvReac Type Severity Reaction Status Date / Time No Known Allergies Allergy Verified 09/12/25 07:17 Review of Systems Review of Systems: CONST: Negative for fever, body aches and chills. HENT: Negative for neck pain/stiffness, headache, congestion, sore throat, swelling. EYES: Negative for discharge/pain or vision changes. RESP: Negative for cough/hemoptysis and shortness of breath. CV: Negative chest pain, difficulty breathing, palpitations. ABD: Negative pain, nausea, vomiting. : Negative increase frequency, dysuria, blood in urine or stool. MUSC: Negative for muscle aches, edema. POS R sided lumbar back pain radiating down posterior R thigh SKIN: Negative rash, lesions/sores. NEURO: Negative headache, dizziness, weakness. Yes all other systems are reviewed and are negative PMF Past Medical History Attestation statement: The following information was validated with the patient. Source: old records reviewed and nursing notes reviewed Medical History Supplemental oxygen dependent Alcohol dependence Tobacco use disorder Pneumonia Sepsis Chronic respiratory failure Pleural effusion Acute pericardial effusion Chest pain HTN (hypertension) COPD (chronic obstructive pulmonary disease) Surgical History History of eyelid surgery History of appendectomy History of tonsillectomy H/O hernia repair Family History Family History Mother No problems noted. Father No problems noted. Brother Gout Social History Social History Household Members: None Housing: House Do you presently have visiting nurse or other home services: No Alcohol intake: current Alcohol intake frequency: 3 or more drinks per day Alcohol type: hard liquor Patient Tobacco Use Status: Current everyday Tobacco user Tobacco use type: Cigarette Cigarette Packs Per Day: 1.5 Cigarettes Per Day: 30 Years Smoked: 52 +/- Smoked in Last 30 Days: Yes Use of substances other than those prescribed or required for medical reasons: No Substance Use Type: Marijuana Advance Directives: No Advance Directives Information Provided: No Do you have a plan to hurt others: No Plan service: No Current occupational status: retired Physical Exam Vital Signs: Vital Signs: Last Vital Signs Temp 97.8 F 09/12/25 07:15 Pulse 73 09/12/25 07:15 Resp 18 09/12/25 07:15 BP 151/90 H 09/12/25 07:15 Pulse Ox 93 09/12/25 07:15 O2 Del Method Room Air 09/12/25 07:15 BMI result Body Mass Index 28.4 GENERAL APPEARANCE: ?AxOx4, non toxic appearing, no acute distress. HEENT: ?NC, AT. MMM. EOMI, clear conjunctiva, oropharynx clear. NECK: ?Supple without lymphadenopathy.? No stiffness or restricted ROM. HEART:? Normal rate and regular rhythm, normal S1/S2, no m/r/g LUNGS: Diminished breath sounds throughout all lung navarro without rhonchi, crackles, wheezing ABDOMEN: ?Soft, nontender, nondistended BACK: No CVAT, no obvious deformity. TTP of right-sided lumbar paraspinal muscles and SI joint, no midline spinal tenderness, no bony step-offs palpated, no rashes or overlying skin changes noted. EXTREMITIES: ?Without cyanosis, clubbing or edema. NEUROLOGICAL: ?Grossly nonfocal. Alert and oriented, moving all 4 extremities. Skin: ?Warm and dry without any rash. Medications Administered Discontinued Medications Generic Name Dose Route Start Last Admin Trade Name Danyq PRN Reason Stop Dose Admin Cyclobenzaprine HCl 5 mg 09/12/25 08:33 09/12/25 08:49 Cyclobenzaprine Hcl 5 Mg Tablet PO 09/12/25 08:34 5 mg ONCE ONE Administration Diazepam 5 mg 09/12/25 08:33 09/12/25 08:49 Diazepam 10 Mg/2 Ml Cartridge IVPUSH 09/12/25 08:34 5 mg STAT STA Administration Acetaminophen 1,000 mg in 100 mls @ 400 mls/hr 09/12/25 08:33 09/12/25 08:49 Ofirmev IV 09/12/25 08:47 400 mls/hr ONCE ONE Administration Ketorolac Tromethamine 15 mg 09/12/25 08:33 09/12/25 08:49 Ketorolac Tromethamine 15 Mg/Ml Vial IVPUSH 09/12/25 08:34 15 mg ONCE ONE Administration Medical Decision Making Medical Decision Making [facility] Narrative: 70 year old Male with medical history of HLD, HTN, COPD, presents to the ED due to 10 days of progressively worsening lumbar back pain. Went to on 09/08 with negative lumbar XR and was prescribed short course of 20mg prednisone and flexeril. Has not been taking flexeril, no relief. Pain is radiating down posterior R thigh. Additionally, patient with productive sounding cough, states he always has cough at baseline due to COPD. Denies fevers, chills, saddle parasthesia, bowel/bladder incontinence, trauma, hx of IVDU VS on initial observation-BP 151/90, pulse rate of 73, respiratory rate of 18, afebrile with oral temp of 97.8?, O2 saturation 93% on room air. On physical exam TTP of right-sided lumbar paraspinal muscles and SI joint, no midline spinal tenderness, no bony step-offs palpated, no rashes or overlying skin changes noted. Plan: labs, CXR, XR lumbar spine. Patient being medicated with 15mg IV toradol, 1g IV tylenol, 5mg IV valium, and 5mg PO flexeril for pain management Labs revealed leukocytosis of 11.7, H&H stable, random serum glucose slightly elevated at 130 CXR negative for acute cardiopulmonary disease XR lumbar spine reveals multilevel degenerative changes Patients pain has mildly improved, patient still experiencing pain but is able to stand up out of bed and ambulate with very slow and steady gait. Patient is afebrile, leukocytosis of 11.7 however patient just finished course of 20mg prednisone for back pain, this elevation is most likely due to course of oral steroids. No history of IVDU, no history of malignancy, saddle paresthesias or bowel/bladder incontinence, no recent fall/trauma- low suspicion for SEA, discitis, cauda equina, or fracture. XR lumbar spine reveals multilevel degenerative changes, back pain is most likely due to exacerbation of osteoarthritis. Patient has course of flexeril at home that he did not take due to concerns of taking too many medications. I counseled patient that Flexeril is safe to take with his other daily medications, and we will help alleviate back pain. Additionally, I counseled patient to take 500 mg of Tylenol, and 400 mg of ibuprofen every 6 hours and use heating pad with gentle stretching to manage pain at home. I counseled patient to follow up with his primary care doctor for further evaluation and management of osteoarthritis. Patient is in agreement with this plan. Differential Diagnosis Differential Diagnoses: The differential diagnosis associated with the presentation includes SEA cauda equina discitis lumbar strain lumbar radiuculopathy lumbar osteoarthritis Admission/Observation Consideration of admission/observation: Escalation of care including admission/observation considered Lab Data MDM Lab Attestation statement: I reviewed the patient's lab results. 09/12/25 08:45 09/12/25 08:45 Labs: Lab Results 09/12/25 Range/Units 08:45 WBC 11.7 H (4.8-10.8) X10*3/uL RBC 5.18 (4.60-5.80) X10*6/uL Hgb 17.1 (14.0-18.0) g/dl Hct 49.8 (42.0-52.0) % MCV 96.1 (80.0-98.0) fL MCH 33.0 (27.0-33.0) pg MCHC 34.3 (31.0-36.0) g/dl RDW 12.9 (11.0-16.0) % Plt Count 262 (160-400) X10*3/uL MPV 8.7 L (9.4-12.4) fL Immature Gran % (Auto) 0.4 (0.0-0.4) % Neut % (Auto) 69.7 (45-73) % Lymph % (Auto) 17.5 L (20-40) % [place] % (Auto) 10.6 (2-11) % Eos % (Auto) 0.9 (0-4) % Baso % (Auto) 0.9 (0-2) % Lymph # (Auto) 2.1 (1.2-4.9) X10*3/uL [place] # (Auto) 1.2 (0.1-1.2) X10*3/uL Eos # (Auto) 0.1 (0.0-0.4) X10*3/uL Baso # (Auto) 0.1 (0.0-0.2) X10*3/uL Abs Immat Gran (auto) 0.05 H (0.00-0.03) X10*3/uL Absolute Neuts (auto) 8.2 (2.0-8.3) x10*3/uL Absolute Nucleated RBC 0.000 (0.0-0.012) X10*3/uL Nucleated RBC % (auto) 0.0 (0.0-0.2) /100WBC Sodium 140 (135-145) mmol/L Potassium 3.3 (3.3-5.1) mmol/L Chloride 103 (96-108) mmol/L Carbon Dioxide 27 (22-29) mmol/L Anion Gap 13 (12-20) BUN 16 (9-16) mg/dL Creatinine 0.62 (0.5-1.4) mg/dL Estim Creat Clear Calc 126.8 Estimated GFR > 60 Random Glucose 130 H (60-115) mg/dL Calcium 8.9 (8.4-10.2) mg/dL Magnesium 1.9 (1.6-2.6) mg/dL Total Bilirubin 0.7 (0.0-1.0) mg/dL AST 23 (5-37) U/L ALT 18 (0-40) U/L Alkaline Phosphatase 74 (39-117) U/L Total Protein 7.0 (6.5-8.0) g/dL Albumin 4.0 (3.5-5.0) g/dL Independent Interpretation I performed an independent interpretation of an: Plain X-Ray Interpretation: I independently interpreted the CXR which was negative for acute cardiopulmonary processes, I agree with the radiologist's interpretation I independently interpreted the XR lumbar spine which revealed multilevel degenerative changes, I agree with the radiologist's interpretation Radiology Impression Discussion of test interpretation with radiology: I have reviewed the radiologist's reading. Radiologist Impression: CXR Findings: The cardiomediastinal silhouette is not enlarged. Pulmonary vascularity is unremarkable. No focal consolidation or effusion. No pneumothorax. IMPRESSION: No acute cardiopulmonary findings. This document has been electronically signed by: Didier Severino DO on 09/12/2025 10:32:35 Dictated By: Didier Severino MD Signed By: <Electronically signed by Didier Severino MD in OV> 09/12/25 1033 XR lumbar spine Findings: The usual lumbar lordosis is maintained without spondylolisthesis. 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 Vertebral body heights are maintained. Multilevel lumbar discogenic degenerative disease and lower lumbar predominant facet osteoarthritis. Mild left hip osteoarthritis. Calcific atherosclerosis. Ventral hernia repair. IMPRESSION: No acute findings. Multilevel degenerative changes. This document has been electronically signed by: Didier Severino DO on 09/12/2025 10:31:59 Dictated By: Didier Severino MD Signed By: <Electronically signed by Didier Severino MD in OV> 09/12/25 1033 Independent Historian Clinical information obtained from an independent historian. History obtained from or confirmed by: EMS External Record Review External record reviewed: Inpatient record, Office record and Outpatient record Chronic Conditions Patient?s care impacted by: Hypertension and Other (HLD, COPD) Social Determinants Patient?s care significantly limited by Social Determinants of Health including: Other Social Determinant of Health Discharge Plan Discharge Clinical Impression: Strain of lumbar region Patient Disposition: Home, Self-Care Instructions: Low Back Strain (ED), Lower Back Exercises (ED) Additional Instructions: You were evaluated in the ED today due to lumbar back pain. Your chest x-ray was negative for any acute emergent findings. The x-ray of your lumbar spine revealed multi levels of osteoarthritis. You were medicated in the department with 5 mg IV Valium, 15 mg IV Toradol, 5 mg oral Flexeril, and 1 g of IV Tylenol with mild relief of your back pain. I Recommend that you take your course of Flexeril that was prescribed to you by urgent care, additionally please take 500 mg of Tylenol, and 400 mg of ibuprofen every 6 hours for pain management. Continue to use heat on this area with gentle stretching. Please follow up with your primary care doctor as you may need additional imaging and referral for physical therapy for management of your back pain. Please return to the ED if you experience fevers over 100.4?, chest pain, worsening back pain, numbness and tingling of your inner thighs or genitals, bowel/bladder incontinence, or any new/worsening/concerning symptoms. Prescriptions: No Action amlodipine 5 mg tablet 5 mg PO DAILY Qty: 90 3RF atorvastatin 20 mg tablet 20 mg PO BEDTIME Qty: 90 3RF trazodone 50 mg tablet 1 tab PO BEDTIME Anoro Ellipta 62.5-25 mcg/actuation blister with device 1 puff inhalation DAILY nicotine 21 mg/24 hr Patch 24 Hour 21 mg transdermal DAILY Qty: 30 0RF hydrochlorothiazide 25 mg tablet 25 mg PO DAILY Combivent Respimat 20-100 mcg/actuation mist 1 puff inhalation QID folic acid 1 mg tablet 1 mg PO DAILY clopidogrel 75 mg tablet 75 mg PO DAILY Qty: 1 0RF Print Language: Faroese
--- OUTSIDE RECORDS SUMMARY | 2025-09-12 07:47 | XMS_ITS | Encounter Summary ---
Author Organization [facility] Address [address] [place] [address] Care Team Providers Care Customer Account Coordinator Name Role Phone Venancio Helm MD Primary Care Provider [phone] Reason for Visit * Reason Onset Date Comments Sciatica 09/07/2025 Encounter Details Date Type Department Care Team (Late st Contact Info) Description 09/07/2025 Nurse Triage Adult Medicine [address] [phone] Venancio Helm MD [address] [place] [address] Social History Tobacco Use Types Packs/Day Years Used Date Smoking Tobacco: Every Day Cigarettes 2 53.3 Started: 1971 Smokeless Tobacco: Never Alcohol Use Standard Drinks/Week Comments Yes 0 (1 standard drink = 0.6 oz pur e alcohol) Sex and Gender Information Value Date Recorded Sex Assigned at Not on file Legal Sex Male 10:23 AM EST Gender Identity Not on file Sexual Orientation Not on file documented as of this encounter Progress Notes * Neris Coreas RN - 09/07/2025 2:25 PM EDT He was instructed to go to any C of his choice at he is in agreement with this plan. Reason for Disposition [1] MODERATE back pain (e.g., interferes with normal activities) AND [2] present > 3 days Answer Assessment - Initial Assessment Questions 1. ONSET: When did the pain begin? (e.g., minutes, hours, days) 09/02/25 2. LOCATION: Where does it hurt? (upper, mid or lower back) Low back pain radiating down right leg 3. SEVERITY: How bad is the pain? (e.g., Scale 1-10; mild, moderate, or severe) He rates the pain as 8/10 with activity and 0/10 at rest 4. PATTERN: Is the pain constant? (e.g., yes, no; constant, intermittent) Constant 5. RADIATION: Does the pain shoot into your legs or somewhere else? Right leg 6. CAUSE: What do you think is causing the back pain? He was kneeling on a chair at the kitchen table reading book 7. BACK OVERUSE: Any recent lifting of heavy objects, strenuous work or exercise? No 8. MEDICINES: What have you taken so far for the pain? (e.g., nothing, acetaminophen, NSAIDS) He has taken Ibuprofen for pain with minimal effect. He is also using a heating pad 9. NEUROLOGIC SYMPTOMS: Do you have any weakness, numbness, or problems with bowel/bladder control? No 10. OTHER SYMPTOMS: Do you have any other symptoms? (e.g., fever, abdomen pain, burning with urination, blood in urine) No other symptoms 11. : Is there any chance you are ? When was your last menstrual period? No. Pt is a male. Protocols used: Back Pain-A- * Jessica Bernstein - 09/07/2025 1:22 PM EDT Patient call requires triage: Symptoms patient is presenting: patient pulled his back last week and now has pain going down the right leg How long has patient had these symptoms?: 1 wk For ALL patients calling to schedule any appointment (routine, sick visit, follow up, consult, etc.) in the outpatient setting please ask the following questions: Do you have fever of higher than 101, sore throat with difficulty swallowing or severe shortness ofbreath? no If YES to any of these above symptoms, send a message to triage and do not book. Red dot. If no, an audio or video visit should be booked. Have you had close contact with someone with Coronavirus in the last 14 days? No Have you traveled abroad? no Have you traveled recently to another state outside of [place], [place], [place], [place], [place], [place], [place]? no o If yes, did you quarantine for 14 days or have a negative covid test? no If yes to any of the above, patient is not to be scheduled in office until after 14 day quarantine or negative covid test. If pain or injury related was it due to an accident at work or from a motor vehicle accident? If yes, date of accident/Injury: No If yes, gather 3rd constitution party insurance information Third Green Party Information: not applicable PCP: Venancio Helm MD Payor: MEDICARE / Plan: MEDICARE PART A & B / Product Type: Medicare / documented in this encounter Plan of Treatment Upcoming Encounters Date Type Department Care Team (Late st Contact Info) Description 11/21/2025 1:00 PM EST Ancillary Procedure Pulmonology - [address] [phone] 11/25/2025 8:30 AM EST Ancillary Procedure [facility] - [place] [address] [phone] 11/28/2025 1:30 PM EST Ancillary Procedure [facility] [place] [address] [phone] 12/13/2025 1:00 PM EST Office Visit Adult Medicine [address] [phone] Venancio Helm MD [address] [place] [address] 01/02/2026 2:30 PM EST Office Visit Pulmonology - [address] [phone] Alison Cristina MD [address] [place] [phone] 03/27/2026 2:00 PM EDT Office Visit Vascular Surgery - [place] [address] [place] [address] Venancio Degroot MD [address] [place] [address] documented as of this encounter Visit Diagnoses Not on filedocumented in this encounter Care Teams Customer Account Coordinator Relationship Specialty Start Date End Date Venancio Helm MD [address] [place] [address] PCP - General Internal Medicine 05/01/1997 documented as of this encounter
--- OUTSIDE RECORDS SUMMARY | 2025-09-12 07:47 | XMS_ITS ---
Author Organization [address] [facility] Address [address] [place] [address] Phone Care Team Providers Care [employer] Name Role Phone Venancio Helm MD Primary Care Provider [phone] Active Problems Problem Noted Date Diagnosed Date [...] (09/17/2024): Repaired and reoccurred IMO update Current Treatment and Therapy Plans No current plan information found. Past Treatment and Therapy Plans No past plan information found. Lifetime Dose Tracking * Chemical Lifetime Dose Automatic Entry Manual Entr y Radiation (DLP) 193.02 mGy-cm 193.02 mGy-cm 0 mGy-cm CTDIvol 4.83 mGy 4.83 mGy 0 mGy
--- OUTSIDE RECORDS SUMMARY | 2025-09-12 07:47 | XMS_ITS | Clinical Summary ---
Author Organization 175 [facility] Address [address] [place] [address] Phone Care Team Providers Care Advertising Space Clerk Name Role Phone Venancio Helm MD Primary Care Provider [phone] Allergies No known active allergies Medications coenzyme Q-10 200 mg capsule Take 1 capsule (200 mg total) by mouth 2 (two) times a day. 5 Active fluticasone propionate (FLONASE) 50 mcg/actuation nasal spray Administer 1 spray into each nostril 1 (one) time each day. 3 Active atorvastatin (LIPITOR) 20 mg tablet Take 1 tablet (20 mg total) by mouth 1 (one) time each day. 4 Active umeclidinium-vi lanteroL (Anoro Ellipta) 62.5-25 mcg/actuation inhaler Inhale 1 puff by mouth 1 (one) time each day. 1 each 5 12/27/19 26 Active ipratropium-alb uteroL (Combivent Respimat) 20-100 mcg/actuation inhaler Inhale 1 puff by mouth 4 (four) times a day. 1 each 5 12/27/19 26 Active folic acid (FOLVITE) 1 mg tablet TAKE 1 TABLET BY MOUTH DAILY 30 tablet 2 5 Active hydroCHLOROthia zide (HYDRODIURIL) 25 mg tablet TAKE 1 TABLET BY MOUTH DAILY 90 tablet 1 5 Active clopidogreL (PLAVIX) 75 mg tablet TAKE 1 TABLET BY MOUTH DAILY 90 tablet 3 5 Active thiamine 100 mg tablet Take 1 tablet (100 mg total) by mouth 1 (one) time each day. Active traZODone (DESYREL) 50 mg tablet TAKE 1 TABLET BY MOUTH AT BEDTIME 90 tablet 1 5 Active amLODIPine (NORVASC) 5 mg tablet TAKE 1 TABLET BY MOUTH DAILY 90 tablet 1 5 Active Active Problems Problem Noted Date Diagnosed Date [...] Encounters Date Type Department Care Team Description 09/07/2025 Nurse Triage Adult Medicine [address] [phone] Venancio Helm MD 06/30/2025 10:30 AM EDT Office Visit Pulmonology - [address] [place] [address] Alison Cristina MD Chronic obstructive pulmonary disease, unspecified COPD type ([facility] V24, [facility] V28) (Primary Dx); Lung nodules; Smoker; Chronic hypoxic respiratory failure ([facility] V24, [facility] V28) from Last 3 Months Immunizations Immunization Administration Dates Next Due Influenza Quadravalent, 0.5m [...] subun it RSVpreF, 0.5mL, Preservative Free (Arexvy) 50yo and older 09/28/2024 Td Tetanus diptheria (Tdvax) 7yo and older 12/01 Tdap Tetanus diptheria acell ular pertussis (Boostrix; Adacel) 7yo and older 01/20/2020,02/17/2008 Zoster recombinant (Shingrix) 19yo and older Surgical History Surgery Date Site/Laterality Comments APPENDECTOMY PROCEDURE: HISTORICAL APPENDECTOMY OTHER SURGICAL HISTORY 10/06/2007 PROCEDURE: COLON CA SCRN NOT HI RSK IND; COMMENT: negative TONSILLECTOMY PROCEDURE: HISTORICAL TONSILLECTOMY ESOPHAGOGASTRODUODENOSCOPY 2012 PROCEDURE: NC ESOPHAGOGASTRODUODENOSCOPY TRANSORAL DIAGNOSTIC; COMMENT: normal HERNIA REPAIR [...] Sign Reading Time Taken Comments Blood Pressure 130/76 06/30/2025 10:19 AM EDT Pulse 93 06/30/2025 10:19 AM EDT Temperature 36.3 C (97.4 F) 05/13/2025 2:30 PM EDT Respiratory Rate 16 05/13/2025 2:30 PM EDT Oxygen Saturation 91% 06/30/2025 10:19 AM EDT Inhaled Oxygen Concentration - - Weight 89.4 kg (197 lb) 06/30/2025 10:19 AM EDT Height 177.8 cm (5' 10 ) 06/30/2025 10:19 AM EDT Body Mass Index 28.27 06/30/2025 10:19 AM EDT Plan of Treatment Upcoming Encounters Date Type Department Care Team (Late st Contact Info) Description 11/21/2025 1:00 PM EST Ancillary Procedure Pulmonology - [place] 175 [facility] 200 [place] [address] 11/25/2025 8:30 AM EST Ancillary Procedure [facility] [address] [phone] 11/28/2025 1:30 PM EST Ancillary Procedure [facility] [address] [address] 12/13/2025 1:00 PM EST Office Visit Adult Medicine [facility] [address] [place] [phone] Venancio Helm MD [address] [place] [address] 01/02/2026 2:30 PM EST Office Visit Pulmonology - [place] 175 [facility] 200 [place] [phone] Alison Cristina MD 175 [facility] 200 [place] [address] 03/27/2026 2:00 PM EDT Office Visit Vascular Surgery - [place] 300 [facility] [address] [place] [address] Venancio Degroot MD [address] [place] [address] Health Maintenance Due Date Last Done Comments Hepatitis A Vaccines (1 of 2 - Risk 2-dose series) 1975 Zoster Vaccines (2 of 2) 02/17/2020 12/23/2019 Falls Risk Assessment 11/09/2022 Social Influencers of Health Screening 11/09/2022 Depression Screening 12/01/2024 05/04/2024 Medicare Annual Wellness Visit 05/04/2025 05/04/2024 COVID-19 Vaccine (5 - Pfizer risk season) 2025 09/28/2024, 12/04/2023, 03/05/2021, Additional history exists Influenza Vaccine (#1) 2025 , 12/04/2023, 11/26/2021, Additional history exists Lung Cancer Screening (Low Dose CT) 11/16/2025 11/16/2024, 12/06/2023, 11/21/2022, Additional history exists Hypertension/CHF/CAD Annual BMP Blood Test 05/13/2026 05/13/2025, 11/05/2024, 05/21/2023 Pneumococcal Vaccine: 50+ Years (3 of 3 - PCV20 or PCV21) 05/08/2027 05/08/2022, 01/20/2020 DTaP,Tdap,and Td Vaccines (4 - Td or Tdap) 01/20/2030 01/20/2020, 02/17/2008, 12/01/1997 Cholesterol Screening (Lipid Panel) 05/13/2030 05/13/2025, 11/05/2024, 05/21/2023 Colorectal Cancer Screening: Colonoscopy 11/05/2032 11/05/2022 Hepatitis C Screening Completed 02/08/2003 RSV Immunization Adult Patients Completed 09/28/2024 HIB Vaccines Aged Out No [...] age to complete this topic Meningococcal B Vaccine Aged Out No l onger eligible based on patient's age to complete this topic RSV Immunization Patients Under 20 months Aged Out No longer eligible based on patient's age to complete this topic Varicella Vaccines Aged Out No longer eligible based on patient's age to complete this topic Procedures Procedure Name Priority Date/Time Associated Diagnosis Comments COMPREHENSIVE METABOLIC PANEL Routine 05/13/2025 3:08 PM EDT Primary hypertension Encounter for long-term (current) use of medications LIPID PANEL WITH REFLEX TO DIRECT LDL Routine 05/13/2025 3:08 PM EDT High cholesterol CT LUNG SCREENING Routine 11/16/2024 1:5 9 PM EST Encounter for screening for malignant neoplasm of respiratory organs Nicotine dependence, cigarettes, uncomplicated DEPRESSION SCREENING Routine 05/04/2024 COLONOSCOPY Routine 11/05/2022 HEPATITIS C SCREENING Routine 02/08/2003 from Last 3 Months or Most Recently Relevant to Health Maintenance Results * (ABNORMAL) Lipid panel with reflex to direct LDL (05/13/2025 3:08 PM EDT) Cholesterol 190 0 - 200 mg/dL LAB CHEMISTRY METHOD 05/13/2025 6:55 PM [facility] Triglycerides 288(H) 0 - 150 mg/dL LAB CHEMISTRY METHOD 05/13/2025 6:55 PM [facility] HDL 73 >=40 mg/dL LAB CHEMISTRY METHOD 05/13/2025 6:55 PM [facility] LDL Calculated 59 0 - 100 mg/dL LAB CHEMISTRY METHOD 05/13/2025 6:55 PM [facility] VLDL Cholesterol Lauro 57.6 mg/dL LAB CHEMISTRY METHOD 05/13/2025 6:55 PM [facility] Non HDL Chol. (LDL+VLDL) 117 <145 mg/dL LAB CHEMISTRY METHOD 05/13/2025 6:55 PM [facility] Chol/HDL Ratio 2.6 0.0 - 4.4 LAB CHEMISTRY METHOD 05/13/2025 6:55 PM [facility] Blood Venous blood specimen / Unknown Venipuncture / Unknown 05/13/2025 3:08 PM EDT 05/13/2025 3:08 PM EDT us Venancio Helm MD LAB BLOOD ORDERABLES Final Resu lt [facility] [address] [place] [address], * (ABNORMAL) Comprehensive metabolic panel (05/13/2025 3:08 PM EDT) Sodium 135 133 - 145 mmol/L LAB CHEMISTRY METHOD 05/13/2025 6:55 PM [facility] Potassium 3.3(L) 3.5 - 5.5 mmol/L LAB CHEMISTRY METHOD 05/13/2025 6:55 PM [facility] Chloride 99 96 - 110 mmol/L LAB CHEMISTRY METHOD 05/13/2025 6:55 PM [facility] CO2 31 21 - 32 mmol/L LAB CHEMISTRY METHOD 05/13/2025 6:55 PM [facility] Anion Gap 5 3 - 11 LAB CHEMISTRY METHOD 05/13/2025 6:55 PM [facility] Glucose 109(H) 70 - 100 mg/dL LAB CHEMISTRY METHOD 05/13/2025 6:55 PM [facility] BUN 14 5 - 25 mg/dL LAB CHEMISTRY METHOD 05/13/2025 6:55 PM [facility] Creatinine 0.90 0.70 - 1.30 mg/dL LAB CHEMISTRY METHOD 05/13/2025 6:55 PM [facility] eGFR 93 >=60 mL/min/1. 73m2 LAB CHEMISTRY METHOD 05/13/2025 6:55 PM [facility] Comment:Calculation based on the Chronic Kidney Disease Epidemiology Collaboration (CKD-EPI) equation refit without adjustment for race. BUN/Creatinine Ratio 15.6 LAB CHEMISTRY METHOD 05/13/2025 6:55 PM EDT [facility] Calcium 9.6 8.5 - 10.5 mg/dL LAB CHEMISTRY METHOD 05/13/2025 6:55 PM EDT [facility] AST (SGOT) 19 10 - 42 unit/L LAB CHEMISTRY METHOD 05/13/2025 6:55 PM EDT [facility] ALT (SGPT) 23 10 - 60 unit/L LAB CHEMISTRY METHOD 05/13/2025 6:55 PM EDT [facility] Alkaline Phosphatase 90 42 - 121 unit/L LAB CHEMISTRY METHOD 05/13/2025 6:55 PM EDT [facility] Total Protein 7.5 6.0 - 8.0 g/dL LAB CHEMISTRY METHOD 05/13/2025 6:55 PM EDT [facility] Albumin 3.8 3.2 - 5.0 g/dL LAB CHEMISTRY METHOD 05/13/2025 6:55 PM EDT [facility] Total Bilirubin 0.7 0.0 - 1.4 mg/dL LAB CHE[facility]STR[facility] Blood Venous blood specimen / Unknown Venipuncture / Unknown 05/13/2025 3:08 PM EDT 05/13/2025 3:08 PM EDT us Venancio Helm MD LAB BLOOD ORDERABLES Final Resu lt [facility] [address] [place] [address], * CT Lung Screening (11/16/2024 1:59 PM [...] Signed Date: 11/18/2024 09:06 ET Workstation ID: [id number] Transcribed By: Self Edit Transcribed Date: 11/18/2024 08:57 ET Narrative 11/18/2024 9:06 AM EST EXAMINATION: CT lung screening. CLINICAL INDICATION: Smoker since 1971. 2 pack per day for 52 years. COMPARISON: CT lung screening 11/23/2023. TECHNIQUE: 2.5 mm thin axial and reformatted 3 mm thin sagittal and coronal images of chest were obtained without contrast. Scanner: [id number] 64 slice VCT Dose reduction technique: ASIR [...] of chest were obtained without contrast. Scanner: [id number] 64 slice VCT Dose reduction technique: ASIR [...] Signed Date: 11/18/2024 09:06 ET Workstation ID: [id number] Transcribed By: Self Edit Transcribed Date: 11/18/2024 08:57 ET Anthony Bliss MD [facility] CT PROCEDURES Final Result * Depression Screening (05/04/2024) Depression Screening abstracted Historical Provider HEALTH MAINTENANCE Final Result * Colonoscopy (11/05/2022) Colonoscopy no interpreta tion,abstr acted Anatomical Region Laterality Modality Other Historical Provider HEALTH MAINTENANCE Final Result * Hepatitis C Screening (02/08/2003) Hepatitis C Screening abstracted Historical Provider HEALTH MAINTENANCE Final Result from Last 3 Months or Most Recently Relevant to Health Maintenance Insurance MEDICARE [facility] Care Teams Advertising Space Clerk Relationship Specialty Start Date End Date eVnancio Helm MD [address] [place] [address] PCP - General Internal Medicine 05/01/1997
[2025-09-12 08:47] LABS: MANUAL DIFF FLAG NO
[2025-09-12 08:49] LABS: Hematocrit 49.8 % (42.0-52.0); Hemoglobin 17.1 g/dl (14.0-18.0); Imm Gran Abs Auto 0.05 X10*3/uL (0.00-0.03); Imm Gran Pct Auto 0.4 % (0.0-0.4); Lymphocytes Absolute Auto 2.1 X10*3/uL (1.2-4.9); Mean Corpuscular HGB Conc 34.3 g/dl (31.0-36.0); Mean Corpuscular Hemoglobin 33.0 pg (27.0-33.0); Mean Corpuscular Volume 96.1 fL (80.0-98.0); NRBC Abs Auto 0.000 X10*3/uL (0.0-0.012); NRBC Pct Auto 0.0 /100WBC (0.0-0.2); Platelet Count 262 X10*3/uL (160-400); Red Blood Count 5.18 X10*6/uL (4.60-5.80); White Blood Count 11.7 X10*3/uL (4.8-10.8)
[2025-09-12] MEDS: diazePAM 10 MG/2 ML CARTRIDGE 5 MG IVPUSH (08:49)
--- NOTE | 2025-09-12 08:53 | PC.NURSE ---
patient a&ox3, iv inserted, labs drawn, pt medicated for 7/10 back pain, call garcia within reach, plan of care ongoing
[2025-09-12 09:03] LABS: Alanine Aminotransferase 18 U/L (0-40); Albumin Level 4.0 g/dL (3.5-5.0); Alkaline Phosphatase 74 U/L (39-117); Anion Gap 13 (12-20); Aspartate Amino Transferase 23 U/L (5-37); Blood Urea Nitrogen 16 mg/dL (9-16); Calcium 8.9 mg/dL (8.4-10.2); Carbon Dioxide 27 mmol/L (22-29); Chloride 103 mmol/L (96-108); Creatinine Clr Calc Pharmacy 126.8; Estimated Glomerular Filt Rate > 60; Magnesium 1.9 mg/dL (1.6-2.6); Potassium 3.3 mmol/L (3.3-5.1); Sodium 140 mmol/L (135-145); Total Protein 7.0 g/dL (6.5-8.0)
--- NOTE | 2025-09-12 11:15 | PC.NURSE ---
pt continues to have 9/10 pain and staets I am no better than when I left my house
[2025-09-12 11:26] VITALS: BP 152/88; PULSE 72; RESP 18; TEMP 36.4; O2SAT 94
== END 2025-09-12 11:27 | disposition home or self-care (01) ==
PROVIDERS: Emergency Provider Emergency Medicine; PCP Internal Medicine
DX: S39.012A Strain of muscle, fascia and tendon of lower back, initial encounter (principal); E78.5 Hyperlipidemia, unspecified; I10 Essential (primary) hypertension; J44.9 Chronic obstructive pulmonary disease, unspecified; F17.200 Nicotine dependence, unspecified, uncomplicated; Z71.6 Tobacco abuse counseling
CPT/HCPCS: 36415; 71046; 72100; 80053; 83735; 85025; 96374; 96375; 99284; J0131; J1885; J3360

== ENCOUNTER → 2025-09-12 08:33 | Outpatient (BNV) | payer MEDICARE, SELFPAY | PROVIDERS: Emergency Provider Emergency Medicine; PCP Internal Medicine; Visit Provider Radiology Diagnostic Radiology | DX: M51.360 Other intervertebral disc degeneration, lumbar region with discogenic back pain only (principal); R05.9 Cough, unspecified | CPT/HCPCS: 71046; 72100 ==

== ENCOUNTER 2025-11-16 14:37 | Outpatient (AMB) | payer MEDICARE, SELFPAY ==
--- NOTE | 2025-11-16 14:43 | A.OFFVIS_ITS ---
Intake Visit Reasons: 6m follow up Allergies No Known Allergies Allergy (Verified 09/12/25 07:17) HPI Comments Details: 70 yo RH man with h/o alcohol abuse, h/o cyclical vomiting disorder, HTN, cerebral microvascular ischemic changes on brain MRI, and cluster headaches. He is presenting for a neurology follow-up visit. He reports ongoing vertigo, with a recent severe episode last week that caused significant imbalance, requiring him to use schwarz for support. The episodes are unpredictable and he manages them by sitting down to regroup. The patient reports drinking three alcoholic beverages every night. He is also attempting to quit smoking; he previously smoked two packs per day and successfully reduced his intake to 13 cigarettes per day with Chantix, though he is no longer on the medication. He admits to not discussing his alcohol consumption with his primary care physician. His past medical history is significant for a bulging disc. He reports he has not had a headache in a long time. He is taking folic acid and thiamine supplements. He reports difficulty enjoying food because he is awaiting dental implants. [facility] Medical History Supplemental oxygen dependent Alcohol dependence Tobacco use disorder Pneumonia Sepsis Chronic respiratory failure Pleural effusion Acute pericardial effusion Chest pain HTN (hypertension) COPD (chronic obstructive pulmonary disease) Surgical History History of eyelid surgery History of appendectomy History of tonsillectomy H/O hernia repair Family History Mother No problems noted. Father No problems noted. Brother Gout Social History Household Members: None Housing: House Do you presently have visiting nurse or other home services: No Alcohol intake: current Alcohol intake frequency: 3 or more drinks per day Alcohol type: hard liquor Patient Tobacco Use Status: Current everyday Tobacco user Tobacco use type: Cigarette Cigarette Packs Per Day: 1.5 Cigarettes Per Day: 30 Years Smoked: 52 +/- Substance Use Type: Marijuana service: No Current occupational status: retired Review of Systems Narrative - Neurological: Reports vertigo with episodes of imbalance. - Denies headaches. - Musculoskeletal: Reports a history of a bulging disc. - Dental: Reports need for dental implants, which affects his ability to chew food. Physical Exam Neuro Other: Mental Status: Alert and oriented to person, place, and time. Normal attention. Normal spontaneous speech, fluency, and comprehension. Cranial Nerves: CN II: Visual navarro full to confrontation, visual acuity intact. CN III, IV, : Pupils equal, round, reactive to light and accommodation. Extraocular movements are normal. CN V: Facial sensation is normal. CN VII: Facial movements symmetrical. CN VIII: Hearing intact to bedside conversation is normal. CN IX, X: Palate elevates symmetrically. CN XI: Shoulder shrug and head turn symmetrical. CN XII: Tongue midline without atrophy or fasciculations. Motor: Bulk and tone normal in all extremities. No significant muscle weakness in arms and legs. No drift. Coordination: Vtoizg-bn-rxry testing with moderate bilateral ataxia Gait and Station: Mild ataxia using a cane. Extrapyramidal: Full facial expressions and blinking. No rigidity. Movements are appropriate with no tremor or abnormality. Speech: Normal; no dysarthria or tremor. Results Reviewed Results Reviewed: MRI of the brain was obtained using routine sequences without contrast. FINDINGS: There is no reduced diffusion to suggest acute infarct. Susceptibility weighted sequence is within normal limits. No mass effect, extra-axial collection, midline shift, or other herniation. Expanded, empty sella turcica. Generalized cerebral volume loss with associated ventricular and sulcal prominence. Scattered periventricular and subcortical T2/FLAIR hyperintense foci are nonspecific but likely represent chronic microvascular ischemic change. Prominent retrocerebellar CSF space. Intracranial flow voids are preserved. Trace ethmoid air cell mucosal thickening. The mastoid air cells are well-aerated. No focal expansile or destructive osseous lesion. MR/MR head/brain wo con IMPRESSION: No acute infarction. EXAMINATION: CTA NECK WITH CONTRAST (STROKE) CTA BRAIN WITH CONTRAST (STROKE) CLINICAL INFORMATION: Suspect acute stroke. Assess for major vessel occlusion. Please call report. COMPARISON: CT head 04/21/2024, CT angiography head and neck 12/04/2021. TECHNIQUE: CTA of the head and neck was performed in the axial plane from the mediastinum to the skull vertex using 70 mL Omnipaque 350 intravenous contrast. Additional reformatted multiplanar images including maximum intensity projection MIP images are generated on the CT workstation. This CT examination was performed using dose optimization techniques as appropriate, variously including the following: *Automated exposure control *Adjustment of mA and/or kV according to patient size (this includes techniques or standardized protocols for targeted exams where dose is matched to indication/reason for exam; i.e. extremities or head) *Use of iterative reconstruction technique DLP: 1648 mGy-cm FINDINGS: The degree of stenosis determined by criteria similar to NASCET. IV contrast-enhanced CT the head: Mild diffuse commensurate prominence of ventricles and sulci is noted. The ventricles and sulci demonstrate minimal diffuse commensurate prominence, within expected limits of normal anatomic variation. A 6 mm ovoid well-circumscribed low-density focus is present in the region of the anterior limb of the right internal capsule corresponding to a similar focus noted contemporaneously on the comparison MRI of 05/30/2017. This finding has the appearance of an incidental dilated perivascular space and demonstrates no marginal gliosis on the comparison MRI. The orbits and globes are normal in appearance. No significant opacification of the visualized paranasal sinuses, mastoid air cells and middle ear cavities. CT angiography neck: Ostial ectasia with eccentric calcific and noncalcific plaque is again noted the origin of the brachiocephalic artery, unchanged compared with 12/04/2021 conventional branching anatomy of the great vessels in relation to the transverse aorta is visualized. Scattered nonocclusive calcific plaques are present in the immediate proximal segments of the great vessels the visualized subclavian arteries are patent. *Left carotid bulb demonstrates mild (less than 50% stenosis secondary to concentric calcific and noncalcific atherosclerotic plaque. A newly identified ulcerative atherosclerotic plaque is present within the carotid bulb extending into the origin of the left internal carotid artery measuring 3.5 mm diameter (series 502 image 542). This finding is new compared with 12/04/2021. The right carotid bulb demonstrates nonocclusive concentric calcific and noncalcific atherosclerotic plaque. The vertebral arteries are codominant. Nonocclusive ostial calcifications are associated with the origins of the left and right vertebral arteries. No stenoses or occlusions of the cervical vertebral artery segments noted. CT angiography head: type origin of the right posterior cerebral artery is noted. Nonocclusive mild segmental calcific atherosclerosis is visualized in the cavernous portions of the internal carotid arteries. No left or right middle cerebral artery M2 segment occlusions are identified. No large vessel intracranial occlusions visualized. No intracranial aneurysms noted. Unchanged marked tendons stenoses involving the junction of the P2 and P3 segments of the left posterior cerebral artery. The visualized lung apices demonstrate centrilobular and paraseptal emphysematous changes. Arch visualization is made of a moderate posterior broad-based disc-osteophyte complex at C6-C7 which results in bilateral foraminal stenoses in at least mild central stenosis. CT/CT angio head neck stroke IMPRESSION: CT head: *No acute intracranial abnormalities identified. No intracranial hemorrhage or acute infarcts. CT angiography neck: *Newly identified ulcerative atherosclerotic plaque measuring 3 mm diameter at the origin of the left internal carotid artery. No associated occlusion or approximate thrombus. This finding is new compared with 12/04/2021. *Nonocclusive, nonulcerative mixed calcific and noncalcific plaque at the origin of the right internal carotid artery unchanged compared with 12/04/2021. *Centrilobular emphysema noted in the incidentally visualized lung apices. *C6-C7 bilateral foraminal stenoses and mild central stenosis secondary to chronic spondylosis. CT angiography head: *No intracranial large vessel occlusions. *Nonocclusive segmental calcific atherosclerosis of the cavernous portions of the internal carotid arteries. *Unchanged marked tendons stenoses involving the junction of the P2 and P3 segments of the left posterior cerebral artery. Assessment & Plan Assessment & Plan (1) Cerebral microvascular disease: Comment: MRI brain WO at [facility] in March 2025: Mild cerebellar and cerebral cortical atrophy, minimal MVD CTA brain and neck at [facility] in Dec 2021: L P2/P3 stenosis, emphysema, empty sella CT brain WO at [facility] in Oct 2021: mild diff atrophy CT brain WO at [facility] in 2011: mild cerebellar and frontal atrophy MRI brain WO at [facility] in 2011: mild atrophy as noted in CT MRI brain WO at [facility] in 2017: somewhat more atrophy compared to 2012, no vascular lesion Code(s): I67.89 - Other cerebrovascular disease Category: Medical (2) Cerebellar ataxia: Code(s): G11.9 - Hereditary ataxia, unspecified Category: Medical (3) Multifactorial gait disorder: Code(s): R26.89 - Other abnormalities of gait and mobility Category: Medical (4) Benign positional vertigo: Code(s): H81.10 - Benign paroxysmal vertigo, unspecified ear Category: Medical Qualifiers: Laterality: unspecified laterality Qualified Code(s): H81.10 - Benign paroxysmal vertigo, unspecified ear Plan Impression: 1. Multifactorial gait disorder 2. Alcohol use disorder 3. Mild diffuse cerebral and cerebellar atrophy 4. Mild chronic microvascular ischemic changes 5. Mild intracranial atherosclerotic disease 6. Benign positional vertigo 7. Cerebellar degeneration contributing to ataxia Recommendations: 1. Try to minimize or quit alcohol drinking 2. Continue to work on smoking cessation 3. Proper nutrition 4. Thiamine 100 mg a day 5. Folic acid 1 mg a day 6. Common sense measures to avoid falls I discussed the patient's ongoing alcohol consumption and reinforced the recomm endation to continue taking thiamine and folic acid to mitigate neurological risks. I counseled him that his drinking increases his risk of seizures. We reviewed his smoking cessation efforts, and I acknowledged his previous success with Chantix. Regarding his vertigo, I confirmed that his prior imaging studies were reviewed and no further scans are indicated at this time. We also briefly discussed diet for brain health. I did not schedule a routine follow-up appointment but instructed him to call and make one if needed. Medications: New thiamine HCl (vitamin B1) 100 mg PO DAILY 90 caps 1RF Refilled folic acid 1 mg PO DAILY 90 tabs 1RF Coding Level of Care Code Est Pt Level 4 (78661) Diagnoses Cerebral microvascular disease I67.89 Cerebellar ataxia G11.9 Multifactorial gait disorder R26.89 Benign paroxysmal positional vertigo, unspecified laterality H81.10 Laterality: unspecified laterality
== END 2025-11-16 15:00 | disposition home or self-care (01) ==
LOC: HO.HSM 14:38
PROVIDERS: PCP Internal Medicine; Referring Provider Internal Medicine; Visit Provider Psychiatry & Neurology Neurology
DX: I67.89 Other cerebrovascular disease (principal); G11.9 Hereditary ataxia, unspecified; R26.89 Other abnormalities of gait and mobility; H81.10 Benign paroxysmal vertigo, unspecified ear
CPT/HCPCS: 99214

== ENCOUNTER → 2025-11-16 14:37 | Outpatient (BNVA) | payer MEDICARE, SELFPAY | PROVIDERS: PCP Internal Medicine; Referring Provider Internal Medicine; Visit Provider Psychiatry & Neurology Neurology | DX: I67.89 Other cerebrovascular disease (principal); G11.9 Hereditary ataxia, unspecified; H81.10 Benign paroxysmal vertigo, unspecified ear; F10.20 Alcohol dependence, uncomplicated; Z72.0 Tobacco use | CPT/HCPCS: 99212 ==

== ENCOUNTER → 2025-11-28 13:56 | Outpatient (REF) | payer MEDICARE, SELFPAY ==
--- OUTSIDE RECORDS SUMMARY | 2025-11-25 08:30 | XMS_ITS | Encounter Summary ---
Author Organization [facility] Address [address] [place] [address] Care Team Providers Care Flight Operations Manager Name Role Phone Venancio Helm MD Primary Care Provider [phone] Reason for Visit * Imaging (Routine) - Authorized Specialty Diagnoses / Procedures Referred By Contac t Referred To Contact Diagnoses Infrarenal abdominal aortic aneurysm (AAA) without rupture (CMS/HCC V24) Procedures Vascular US duplex aorta/IVC/iliac/grafts complete Venancio Degroot MD [address] [place] [address] Phone: tel: fax: [facility] Referral ID Status Reason Start Date Expiration Date V isits Requested Visits Authorized [id number] Authorized 03/25/2025 03/25/2026 1 1 Encounter Details Date Type Department Care Team (Latest Contact Info) Description 11/25/2025 8:30 AM EST Ancillary Procedure [facility] - [address] [place] [address] Infrarenal abdominal aortic aneurysm (AAA) without rupture ([facility]/HCC V24) Social History Tobacco Use Types Packs/Day Years Used Date Smoking Tobacco: Every Day Cigarettes 2 53.5 Started: 1971 Smokeless Tobacco: Never Alcohol Use Standard Drinks/Week Comments Yes 0 (1 standard drink = 0.6 oz pur e alcohol) Sex and Gender Information Value Date Recorded Sex Assigned at Not on file Legal Sex Male 10:23 AM EST Gender Identity Not on file Sexual Orientation Not on file documented as of this encounter Plan of Treatment Upcoming Encounters Date Type Department Care Team (Late st Contact Info) Description 11/30/2025 9:15 AM EST Ancillary Procedure [facility] - [facility] [address] [facility] [address] [place] [address] 12/13/2025 1:00 PM EST Office Visit Adult Medicine [facility] [address] [place] [address] Venancio Helm MD [address] [place], [place] 12/28/2025 2:00 PM EST Office Visit Pulmonology - [place] [address] [facility] [address] [place] [phone] Alison Cristina MD [address] [place] [phone] 03/27/2026 2:00 PM EDT Office Visit Vascular Surgery - [place] [address] [facility] [address] [place] [address] Venancio Degroot MD [address] [place] [phone] documented as of this encounter Procedures Procedure Name Priority Date/Time Associated Diagnosis Comments VAS US DUPLEX AORTA/IVC/ILIAC/GRA FTS COMPLETE Routine 11/25/2025 8:31 AM EST Infrarenal abdominal aortic aneurysm (AAA) without rupture (CMS/[facility] V24) documented in this encounter Results * Vascular US duplex aorta/IVC/iliac/grafts complete (11/25/2025 8:31 AM EST) Abdominal dist aorta AP 1.58 cm CV [facility] Abdominal mid aorta AP 3.02 cm CV [facility] Abdominal prox aorta AP 1.80 cm CV [facility] Abdominal dist aorta reynaldo 62 cm/s CV [facility] Abdominal mid aorta reynaldo 96 cm/s CV [facility] Abdominal prox aorta reynaldo 69 cm/s CV [facility] Abdominal prox aorta trans 1.79 cm CV [facility] Proximal Aorta Long Diameter 1.79 cm CV [facility] Abdominal mid aorta trans 3.00 cm CV [facility] Mid Aorta Long Diameter 3.07 cm CV [facility] Abdominal dist aorta trans 1.87 cm CV [facility] Dist Aorta Long Diameter 1.57 cm CV VAS LAB Anatomical Region Laterality Modality Vascular, Abdomen Ultrasound Narrative 11/27/2025 3:29 AM EST Abdominal aortic aneurysm involving the mid segment of the abdominal aorta measuring 3.07 cm x 3.02 cm x 3.0 cm. us Venancio Degroot MD CV VASCULAR PROCEDURES Final Re sult documented in this encounter Visit Diagnoses Diagnosis Infrarenal abdominal aortic aneurysm (AAA) without rupture (CMS/[facility] V24) documented in this encounter Care Teams Flight Operations Manager Relationship Specialty Start Date End Date Venancio Helm MD [address] [place] [phone] PCP - General Internal Medicine 05/01/1997 documented as of this encounter
--- OUTSIDE RECORDS SUMMARY | 2025-11-28 16:14 | XMS_ITS | Encounter Summary ---
Author Organization [facility] Address [address] [place] [address] Care Team Providers Care Fitness Supervisor Name Role Phone Venancio Helm MD Primary Care Provider [phone] Encounter Details Date Type Department Care Team (Late Contact Info) Description 11/28/2025 Results Follow-Up Vascular Surgery - [place] [address] [facility] [address] [place] [address] Karol Pappas PA [address] [facility] [address] [place] [address] Social History Tobacco Use Types Packs/Day Years [...] Encounters Date Type Department Care Team (Late Contact Info) Description 11/30/2025 9:15 AM EST Ancillary Procedure [facility] - [facility] [address] [facility] [address] [place] [address] 12/13/2025 1:00 PM EST Office Visit Adult Medicine [address] [address] Venancio Helm MD [address] [place] [phone] 12/28/2025 2:00 PM EST Office Visit Pulmonology - [place] [address] [place] [phone] Alison Cristina MD [address] [place] [address] 03/27/2026 2:00 PM EDT Office Visit Vascular Surgery - [place] [address] [place] [phone] Venancio Degroot MD [address] [place] [phone] documented as of this encounter Visit Diagnoses Not on filedocumented in this encounter Care Teams Fitness Supervisor Relationship Specialty Start Date End Date Venancio Helm MD [address] [place] [address] PCP - General Internal Medicine 05/01/1997 documented as of this encounter
--- OUTSIDE RECORDS SUMMARY | 2025-11-28 16:14 | XMS_ITS ---
Author Organization [facility] Address [address] [place] [address] Phone Care Team Providers Care Caser In Name Role Phone Venancio Helm MD Primary Care Provider [phone] Active Problems Problem Noted Date Diagnosed Date [...] Automatic Entry Manual Entr y Radiation (DLP) 365.52 mGy-cm 365.52 mGy-cm 0 mGy-cm CTDIvol 9.66 mGy 9.66 mGy 0 mGy
--- OUTSIDE RECORDS SUMMARY | 2025-11-28 16:14 | XMS_ITS | Clinical Summary ---
Author Organization 175 [facility] Address [address] [place] [address] Phone Care Team Providers Care Account Management Assistant Name Role Phone Venancio Helm MD Primary Care Provider [phone] Allergies No known active allergies Medications coenzyme Q-10 200 mg capsule Take 1 capsule (200 mg total) by mouth 2 (two) times a day. 08/31/20 15 Active fluticasone propionate (FLONASE) 50 mcg/actuation nasal spray Administer 1 spray into each nostril 1 (one) time each day. 11/03/20 23 Active atorvastatin (LIPITOR) 20 mg tablet Take 1 tablet (20 mg total) by mouth 1 (one) time each day. 08/24/20 24 Active umeclidinium-v ilanteroL (Anoro Ellipta) 62.5-25 mcg/actuation inhaler Inhale 1 puff by mouth 1 (one) time each day. 1 each 12/27/19 25 026 Active ipratropium-al buteroL (Combivent Respimat) 20-100 mcg/actuation inhaler Inhale 1 puff by mouth 4 (four) times a day. 1 each 12/27/19 25 026 Active folic acid (FOLVITE) 1 mg tablet TAKE 1 TABLET BY MOUTH DAILY 30 tablet 2 02/01/20 25 Active clopidogreL (PLAVIX) 75 mg tablet TAKE 1 TABLET BY MOUTH DAILY 90 tablet 3 04/12/20 25 Active thiamine 100 mg tablet Take 1 tablet (100 mg total) by mouth 1 (one) time each day. Active traZODone (DESYREL) 50 mg tablet TAKE 1 TABLET BY MOUTH AT BEDTIME 90 tablet 1 06/21/20 25 Active amLODIPine (NORVASC) 5 mg tablet TAKE 1 TABLET BY MOUTH DAILY 90 tablet 1 07/19/20 25 Active hydroCHLOROthi azide (HYDRODIURIL) 25 mg tablet Take 1 tablet (25 mg total) by mouth 1 (one) time each day. 90 tablet 1 09/14/20 25 Active cyclobenzaprin e (FLEXERIL) 5 mg tablet Take 1 tablet (5 mg total) by mouth at bedtime. 30 tablet 09/19/20 25 Active meloxicam (MOBIC) 15 mg tablet TAKE 1 TABLET(15 MG) BY MOUTH 1 TIME EACH DAY 30 tablet 11/16/20 25 Active meloxicam (MOBIC) 15 mg tablet TAKE 1 TABLET(15 MG) BY MOUTH 1 TIME EACH DAY 30 tablet 10/12/20 25 025 Discontinued Active Problems Problem Noted Date [...] Encounters Date Type Department Care Team Description 11/28/2025 Results Follow-Up Vascular Surgery - [place] [address] [place] [phone] Karol Pappas PA 11/25/2025 8:30 AM EST Ancillary Procedure [facility] - [facility] [address] [place] [phone] Infrarenal abdominal aortic aneurysm (AAA) without rupture (CMS/HCC V24) 11/21/2025 1:00 PM EST Ancillary Procedure Pulmonology - [place] [address] [facility] [address] [place] [phone] Chronic obstructive pulmonary disease, unspecified COPD type (CMS/HCC V24, CMS/HCC V28) 11/17/2025 11:07 AM EST - 11/17/2025 11:59 PM EST Hospital Encounter [facility] CT Scan [address] [place] [phone] Encounter for screening for malignant neoplasm of respiratory organs; Nicotine dependence, cigarettes, uncomplicated Discharge Disposition: Home or Self Care 10/31/2025 Telephone Adult Medicine [address] [phone] Venancio Helm MD 10/26/2025 Telephone Lung Screening Program - [place] [address] [facility] [address] [place] [phone] Anthony Bliss MD 09/27/2025 Telephone Adult Medicine [address] [phone] Brenda Lozoya NP 09/20/2025 Telephone Adult Medicine [address] [phone] Venancio Helm MD 09/14/2025 1:00 PM EDT Office Visit Adult Medicine [address] [phone] Devora, Brenda M, SHAKE SAWYER Lumbar pain (Primary Dx) 09/14/2025 Telephone Adult Medicine [address] [phone] Venancio Helm MD 09/13/2025 Telephone Adult Medicine [address] [address] Venancio Helm MD 09/07/2025 Nurse Triage Adult Medicine [address] [phone] Venancio Helm MD from Last 3 Months Immunizations Immunization Administration [...] TONSILLECTOMY PROCEDURE: HISTORICAL TONSILLECTOMY ESOPHAGOGASTRODUODENOSCOPY 2012 PROCEDURE: [place] ESOPHAGOGASTRODUODENOSCOPY TRANSORAL DIAGNOSTIC; COMMENT: normal HERNIA REPAIR [...] 2 53.5 Started: 1971 Smokeless Tobacco: Never Tobacco Cessation:Ready to Q uit: Not Asked; Counseling Given: Not Answered Alcohol Use Standard Drinks/Week Comments Yes 0 (1 standard drink = 0.6 oz pur e alcohol) Sex and Gender Information Value Date Recorded Sex Assigned at Not on file Legal Sex Male 10:23 AM EST Gender Identity Not on file Sexual Orientation Not on file Last Filed Vital Signs Vital Sign Reading Time Taken Comments Blood Pressure 136/82 09/14/2025 1:00 PM EDT Pulse 82 09/14/2025 1:00 PM EDT Temperature 36.6 C (97.8 F) 09/14/2025 1:00 PM EDT Respiratory Rate 16 09/14/2025 1:00 PM EDT Oxygen Saturation 91% 06/30/2025 10:19 AM EDT Inhaled Oxygen Concentration - - Weight 90.7 kg (200 lb) 09/14/2025 1:00 PM EDT Height 177.8 cm (5' 10 ) 09/14/2025 1:00 PM EDT Body Mass Index 28.7 09/14/2025 1:00 PM EDT Plan of Treatment Upcoming Encounters Date Type Department Care Team (Late st Contact Info) Description 11/30/2025 9:15 AM EST Ancillary Procedure [facility] - [facility] [address] [facility] [address] [place] [address] 12/13/2025 1:00 PM EST Office Visit Adult Medicine [facility] [address] [place] [address] Venancio Helm MD [address] [place] [address] 12/28/2025 2:00 PM EST Office Visit Pulmonology - [place] 175 [facility] [address] [place] [phone] Alison Cristina MD [address] [place] [phone] 03/27/2026 2:00 PM EDT Office Visit Vascular Surgery - [place] 300 [facility] [address] [place] [phone] Venancio Degroot MD [address] [place] [phone] Health Maintenance Due Date Last Done Comments Hepatitis A Vaccines (1 of 2 - Risk 2-dose series) 1975 Zoster Vaccines (2 of 2) 02/17/2020 12/23/2019 Falls Risk Assessment 11/09/2022 Social Influencers of Health Screening 11/09/2022 Depression Screening 12/01/2024 05/04/2024 Medicare Annual Wellness Visit 05/04/2025 05/04/2024 Hypertension/CHF/CAD Annual BMP Blood Test 05/13/2026 05/13/2025, 11/05/2024, 05/21/2023 COVID-19 Vaccine (6 - Pfizer risk season) 2026 11/15/2025, 09/28/2024, 12/04/2023, Additional history exists Lung Cancer Screening (Low Dose CT) 11/17/2026 11/17/2025, 11/16/2024, 12/06/2023, Additional history exists Pneumococcal Vaccine: 50+ Years (3 of 3 - PCV20 or PCV21) 05/08/2027 05/08/2022, 01/20/2020 DTaP,Tdap,and Td Vaccines (4 - Td or Tdap) 01/20/2030 01/20/2020, 02/17/2008, 12/01/1997 Cholesterol Screening (Lipid Panel) 05/13/2030 05/13/2025, 11/05/2024, 05/21/2023 Colorectal Cancer Screening: Colonoscopy 11/05/2032 11/05/2022 Hepatitis C Screening Completed 02/08/2003 RSV Immunization Adult Patients Completed 09/28/2024 Influenza Vaccine Completed 11/15/2025, , 12/04/2023, Additional history exists HIB Vaccines Aged Out No longer eligi [...] Date/Time Associated Diagnosis Comments VAS US DUPLEX AORTA/IVC/ILIAC/GRAFT S COMPLETE Routine 11/25/2025 8:31 AM EST Infrarenal abdominal aortic aneurysm (AAA) without rupture (CMS/HCC V24) PULMONARY FUNCTION TESTING Routine 11/21/2025 12:57 PM EST Chronic obstructive pulmonary disease, unspecified COPD type (CMS/HCC V24, CMS/HCC V28) CT LUNG SCREENING Routine 11/17/2025 11: 26 AM EST Encounter for screening for malignant neoplasm of respiratory organs Nicotine dependence, cigarettes, uncomplicated EXTERNAL MRI REPORT 10/14/2025 COMPREHENSIVE METABOLIC PANEL Routine 05/13/2025 3:08 PM EDT Primary hypertension Encounter for long-term (current) use of medications LIPID PANEL WITH REFLEX TO DIRECT LDL Routine 05/13/2025 3:08 PM EDT High cholesterol HM DEPRESSION SCREENING Routine 05/04/2024 COLONOSCOPY Routine 11/05/2022 HEPATITIS C SCREENING Routine 02/08/2003 from Last 3 Months or Most Recently Relevant to Health Maintenance Results * Vascular US duplex aorta/IVC/iliac/grafts complete [...] CV VASCULAR PROCEDURES Final Re sult * Pulmonary function testing: Carbon Monoxide Diffusing Capacity, Nitrogen Wash Out, Spirometry with Bronchodilator, Vital Capacity Test (11/21/2025 12:57 PM EST) Impressions Maryann Burgess MD - 11/21/2025 12:57 PM EST 11/21/2025 Spirometry FEV1 is 44% normal, FVC 60% normal, FEV1/FVC ratio is decreased, no significant proving FEV1 post bronchodilators Lung TLC is 96% normal, RV/TLC is 127% Diffusion DLCO is severe decreased 7% predicted In summary, this PFT shows severe obstructive lung disease consistent with pulmonary emphysema. The diffusion capacity is severely limited. When compared to the last test from March 2022, there has been decline in all indexes us Alison Cristina MD PFT ORDERABLES Final Result * CT Lung Screening (11/17/2025 11:26 AM EST) Anatomical Region Laterality Modality Chest Computed Tomogra phy 11/21/2025 1:57 PM EST Impressions 11/21/2025 2:07 PM EST Impression: No suspicious pulmonary nodule identified. No significant change. Lung-RADS Category: Lung-RADS 2: Nodule(s) with benign appearance or behavior. Continue annual screening with Low Dose Chest CT in 12 months. Telerad PA ([id number]) -------- FINAL REPORT -------- Dictated By: Khadijah Alcaraz Dictated Date: 11/21/2025 13:57 ET Assigned Physician: Khadijah Alcaraz Reviewed and Electronically Signed By: Khadijah Alcaraz Signed Date: 11/21/2025 14:07 ET Workstation ID: [id number] Transcribed By: Self Edit Transcribed Date: 11/21/2025 13:57 ET Narrative 11/21/2025 2:07 PM EST History: 70 year-old 103 pack-year current smoker, asymptomatic, for lung cancer screening. Comparison: 11/16/24 Technique: Helical volumetric imaging of the thorax was performed, using low- dose technique, without IV contrast. DLP: 172.50 mGy/cm CTDIvol: 4.83 mGy GE Greysoxpeed VCT Iterative reconstruction technique Findings: Lungs and Airways: The trachea and central bronchial tree remain patent. There is diffuse bronchial wall thickening. A small amount of endobronchial debris is seen in the distal left main bronchus. Paraseptal and centrilobular emphysema is again noted. A 3 mm solid, noncalcified nodule in the right middle lobe (image 186 series 3) is unchanged. Curvilinear juxtapleural opacity at the left base is without significant change, consistent with atelectasis or scar. No suspicious developing nodule is seen. Pleura: Smooth pleural thickening is seen at the base of the left hemithorax, unchanged. No pleural or pericardial effusions are identified. Base of neck, mediastinum and heart: The heart remains normal in size. Three- vessel coronary artery calcification is again noted. A small fusiform ascending thoracic aortic aneurysm measures up to 4.4 cm in AP diameter, unchanged. No developing thoracic lymphadenopathy is seen. Soft tissues: The overlying soft tissues are unremarkable. Abdomen: This study was performed without contrast and with lower than standard dose. These factors reduce the sensitivity for detection of small lesions in the upper abdomen. No significant abnormality is seen. Procedure Note Khadijah Alcaraz MD - 11/21/2025 History: 70 year-old 103 pack-year current smoker, asymptomatic, for lungcancer screening. Comparison: 11/16/24 Technique: Helical volumetric imaging of the thorax was performed, usinglow-dose technique, without IV contrast. DLP: 172.50 mGy/cm CTDIvol: 4.83 mGy Rewardpoded VCT Iterative reconstruction technique Findings: Lungs and Airways: The trachea and central bronchial tree remain patent.There is diffuse bronchial wall thickening. A small amount ofendobronchial debris is seen in the distal left main bronchus. [place]pt[place] centrilobular emphysema is again noted. A 3 mm solid, noncalcified nodule in the right middle lobe (image 186series 3) is unchanged. Curvilinear juxtapleural opacity at the left baseis without significant change, consistent with atelectasis or scar. No suspicious developing nodule is seen. Pleura: Smooth pleural thickening is seen at the base of the lefthemithorax, unchanged. No pleural or pericardial effusions areidentified. Base of neck, mediastinum and heart: The heart remains normal in size.Three- vessel coronary artery calcification is again noted. A smallfusiform ascending thoracic aortic aneurysm measures up to 4.4 cm in APdiameter, unchanged. No developing thoracic lymphadenopathy is seen. Soft tissues: The overlying soft tissues are unremarkable. Abdomen: This study was performed without contrast and with lower thanstandard dose. These factors reduce the sensitivity for detection of smalllesions in the upper abdomen. No significant abnormality is seen. IMPRESSION: Impression: No suspicious pulmonary nodule identified. No significant change. Lung-RADS Category: Lung-RADS 2: Nodule(s) with benign appearance orbehavior. Continue annual screening with Low Dose Chest CT in 12 months. Telerad DA ([id number]) -------- FINAL REPORT -------- Dictated By: Khadijah Alcaraz Dictated Date: 11/21/2025 13:57 ET Assigned Physician: Khadijah Alcaraz Reviewed and Electronically Signed By: Khadijah Alcaraz Signed Date: 11/21/2025 14:07 ET Workstation ID: [id number] Transcribed By: Self Edit Transcribed Date: 11/21/2025 13:57 ET Anthony Bliss MD [facility] CT PROCEDURES Final Result * External MRI Report (10/14/2025) Anatomical Region Laterality Modality Magnetic Resonan ce us Provider [employer] [facility] MRI PROCEDURES Final Result * (ABNORMAL) Lipid panel with reflex to direct LDL (05/13/2025 3:08 PM EDT) Cholesterol 190 0 - 200 mg/dL LAB CHEMISTRY METHOD 05/13/2025 6:55 PM EDT [facility] Triglycerides 288(H) 0 - 150 mg/dL LAB CHEMISTRY METHOD 05/13/2025 6:55 PM EDT [facility] HDL 73 >=40 mg/dL LAB CHEMISTRY METHOD 05/13/2025 6:55 PM EDT [facility] LDL Calculated 59 0 - 100 mg/dL LAB CHEMISTRY METHOD 05/13/2025 6:55 PM EDT [facility] VLDL Cholesterol Lauro 57.6 mg/dL LAB CHEMISTRY METHOD 05/13/2025 6:55 PM T [facility] Non HDL Chol. (LDL+VLDL) 117 <145 mg/dL LAB CHEMISTRY METHOD 05/13/2025 6:55 PM EDT [facility] Chol/HDL Ratio 2.6 0.0 - 4.4 LAB CHEMISTRY METHOD 05/13/2025 6:55 PM T [facility] Blood Venous blood specimen / Unknown Venipuncture / Unknown 05/13/2025 3:08 PM EDT 05/13/2025 3:08 PM EDT us Venancio Helm MD LAB BLOOD ORDERABLES Final Resu lt [facility] [address] [place] [address], [place] [phone] * (ABNORMAL) Comprehensive metabolic panel (05/13/2025 3:08 PM EDT) Sodium 135 133 - 145 mmol/L LAB CHEMISTRY METHOD 05/13/2025 6:55 PM [facility] Potassium 3.3(L) 3.5 - 5.5 mmol/L LAB CHEMISTRY METHOD 05/13/2025 6:55 PM [facility] Chloride 99 96 - 110 mmol/L LAB CHEMISTRY METHOD 05/13/2025 6:55 PM [facility] CO2 31 21 - 32 mmol/L LAB CHEMISTRY METHOD 05/13/2025 6:55 PM [facility] Anion Gap 5 3 - 11 LAB CHEMISTRY METHOD 05/13/2025 6:55 PM [facility] Glucose 109(H) 70 - 100 mg/dL LAB CHEMISTRY METHOD 05/13/2025 6:55 PM [facility] BUN 14 5 - 25 mg/dL LAB CHEMISTRY METHOD 05/13/2025 6:55 PM [facility] Creatinine 0.90 0.70 - 1.30 mg/dL LAB CHEMISTRY METHOD 05/13/2025 6:55 PM [facility] eGFR 93 >=60 mL/min/1. 73m2 LAB CHEMISTRY METHOD 05/13/2025 6:55 PM [facility] Comment:Calculation based on the Chronic Kidney Disease Epidemiology Collaboration (CKD-EPI) equation refit without adjustment for race. BUN/Creatinine Ratio 15.6 LAB CHEMISTRY METHOD 05/13/2025 6:55 PM [facility] Calcium 9.6 8.5 - 10.5 mg/dL LAB CHEMISTRY METHOD 05/13/2025 6:55 PM [facility] AST (SGOT) 19 10 - 42 unit/L LAB CHEMISTRY METHOD 05/13/2025 6:55 PM [facility] ALT (SGPT) 23 10 - 60 unit/L LAB CHEMISTRY METHOD 05/13/2025 6:55 PM [facility] Alkaline Phosphatase 90 42 - 121 unit/L LAB CHEMISTRY METHOD 05/13/2025 6:55 PM [facility] Total Protein 7.5 6.0 - 8.0 g/dL LAB CHEMISTRY METHOD 05/13/2025 6:55 PM [facility] Albumin 3.8 3.2 - 5.0 g/dL LAB CHEMISTRY METHOD 05/13/2025 6:55 PM [facility] Total Bilirubin 0.7 0.0 - 1.4 mg/dL LAB CHEMISTRY METHOD 05/13/2025 6:55 PM [facility] Blood Venous blood specimen / Unknown Venipuncture / Unknown 05/13/2025 3:08 PM EDT 05/13/2025 3:08 PM EDT us Venancio Helm MD LAB BLOOD ORDERABLES Final Resu lt [facility] [address] [place] [address], [place] [phone] * Depression Screening (05/04/2024) Depression Screening abstracted Historical Provider HEALTH MAINTENANCE Final Result * Colonoscopy (11/05/2022) Colonoscopy no interpreta tion,abstr acted Anatomical Region Laterality Modality Other Historical Provider HEALTH MAINTENANCE Final Result * Hepatitis C Screening (02/08/2003) Hepatitis C Screening abstracted Historical Provider HEALTH MAINTENANCE Final Result from Last 3 Months or Most Recently Relevant to Health Maintenance Insurance MEDICARE [facility] Care Teams Account Management Assistant Relationship Specialty Start Date End Date Venancio Helm MD [address] [place] [address] PCP - General Internal Medicine 05/01/1997
--- OUTSIDE RECORDS SUMMARY | 2025-11-28 16:14 | XMS_ITS | Encounter Summary ---
Author Organization [facility] Address [address] [place] [address] Care Team Providers Care Business Transformation Analyst Name Role Phone Venancio Helm MD Primary Care Provider [phone] Reason for Visit * Reason Onset Date Comments faxed order 10/31/2025 AT Physical The rapy DOC ID [id number] Encounter Details Date Type Department Care Team (Late st Contact Info) Description 10/31/2025 Telephone Adult Medicine [address] [phone] Venancio Helm MD [address] [place] [address] Social History Tobacco Use Types Packs/Day Years [...] as of this encounter Progress Notes * Bianka Saldaña - 10/31/2025 1:47 PM EST [facility] Physical Therapy DOC ID [id number] received please sign and fax to [phone] documented in this encounter Plan of Treatment Upcoming Encounters Date Type Department Care Team (Late st Contact Info) Description 11/30/2025 9:15 AM EST Ancillary Procedure [facility] - [facility] [address] [facility] [address] [place] [address] 12/13/2025 1:00 PM EST Office Visit Adult Medicine [facility] [address] [place], [place] [phone] Venancio Helm MD [address] [place], [place] 12/28/2025 2:00 PM EST Office Visit Pulmonology - [place] [address] [address] [facility] [address] [place] [phone] Alison Cristina MD [address] [place] [phone] 03/27/2026 2:00 PM EDT Office Visit Vascular Surgery - [place] [address] [place] [address] Venancio Degroot MD [address] [place] [phone] documented as of this encounter Visit Diagnoses Not on filedocumented in this encounter Care Teams Business Transformation Analyst Relationship Specialty Start Date End Date Venancio Helm MD [address] [place] [address] PCP - General Internal Medicine 05/01/1997 documented as of this encounter
== END ==
LOC: HO.CARD 13:56
PROVIDERS: PCP Internal Medicine; Visit Provider Nurse Practitioner Family
DX: I77.810 Thoracic aortic ectasia (principal); I31.39 Other pericardial effusion (noninflammatory)
CPT/HCPCS: 93306

== ENCOUNTER → 2025-11-28 13:59 | Outpatient (BNV) | payer MEDICARE, SELFPAY | PROVIDERS: PCP Internal Medicine; Visit Provider Internal Medicine | DX: I35.8 Other nonrheumatic aortic valve disorders (principal); I77.810 Thoracic aortic ectasia | CPT/HCPCS: 93306 ==